=== PATIENT | female | born 1930 | race Caucasian/White ===

== ENCOUNTER 2017-01-27 13:33 | Inpatient (IN) | payer OTHER, BC ==
--- NOTE | 2017-01-27 13:39 | PDOC ---
History of Present Illness - General Chief Complaint: Pain, Acute Stated Complaint: RUQ RLQ PAIN Time Seen by Provider: 01/27/17 13:39 History Source: Patient, Old Records Exam Limitations: No Limitations - History of Present Illness Initial Comments: 01/27/17 13:59 87-year-old female with past medical history significant for hypertension, breast cancer status post right mastectomy, GERD, hiatal hernia, CHF presents to the emergency Department with complaints of 2 day history of diffuse abdominal pain and diarrhea 3 days ago. The patient says that she has not vomited but has had some dry heaving. The pain is poorly described but is worse with movement and she is had no appetite over the past 2 days. She reports increased "gassiness." Past History - Past Medical History Allergies/Adverse Reactions: Allergies Allergy/AdvReac Type Severity Reaction Status Date / Time codeine Allergy Rash Verified 01/27/17 14:44 Home Medications: Ambulatory Orders Alendronate Na [Fosamax (Weekly)] 70 mg PO Q7D 05/18/13 Atenolol [Tenormin] 100 mg PO DAILY 05/18/13 Furosemide [Lasix] 40 mg PO DAILY 05/18/13 Pantoprazole Sodium 40 mg PO HS 05/18/13 Topiramate 25 mg PO BID 05/18/13 Prednisone [Deltasone -] 20 mg PO DAILY #15 tablet 08/11/16 Piperonyl Butoxide/Pyrethrins [Ra Lice Pyrinyl Shampoo] 237 ml TP AM #1 shampoo 08/13/16 Valacyclovir HCl [Valtrex] 500 mg PO DAILY 01/27/17 HTN: Yes - Psycho/Social/Smoking Cessation Hx Anxiety: No Suicidal Ideation: No Smoking Status: Yes Smoking History: Never smoked Years of Tobacco Use: 15 Number of Cigarettes Smoked Daily: 60 Hx Alcohol Use: No Drug/Substance Use Hx: No Review of Systems - Review of Systems Able to Perform ROS?: Yes Is the patient limited Upper Sorbian proficient: No Constitutional: Yes: Loss of Appetite HEENTM: No: Symptoms Reported Respiratory: No: Symptoms reported Cardiac (ROS): No: Symptoms Reported ABD/GI: Yes: See HPI : No: Symptoms Reported Musculoskeletal: No: Symptoms Reported Integumentary: No: Symptoms Reported *Physical Exam - Physical Exam Comments: 01/27/17 14:00 GENERAL: Well developed, well nourished. Awake and alert. No acute distress. HEENT: Normocephalic, atraumatic. PERRLA, EOMI. No conjunctival pallor. Sclera are non- icteric. Moist mucous membranes. Oropharynx is clear. NECK: Supple. Full ROM. No JVD. No lymphadenopathy. CARDIOVASCULAR: Regular rate and rhythm. No murmurs, rubs, or gallops. Distal pulses are 2+ and symmetric. PULMONARY: No evidence of respiratory distress. Lungs clear to auscultation bilaterally. No wheezing, rales or rhonchi. ABDOMINAL: Soft. There is mild diffuse tenderness that is worse in the suprapubic and RLQ. No rebound or guarding. No organomegaly. Normoactive bowel sounds. MUSCULOSKELETAL Normal range of motion at all joints. No bony deformities or tenderness. No CVA tenderness. She is s/p right mastectomy. EXTREMITIES: No cyanosis. No clubbing. There is trace to +1 bipedal edema. No calf tenderness. SKIN: Warm and dry. Normal capillary refill. No rashes. No jaundice. NEUROLOGICAL: Alert, awake, appropriate. Cranial nerves 2-12 intact. Grossly non-focal exam. PSYCHIATRIC: Cooperative. Good eye contact. Appropriate mood and affect. ED Treatment Course - LABORATORY CBC & Chemistry Diagram: 01/27/17 14:30 01/27/17 14:30 Medical Decision Making - Medical Decision Making 01/27/17 14:02 87 y/o female with h/o HTN, CHF, hiatal hernia, GERD with 3 day h/o abdominal pain and nasuea with diarrhea x 1 episode on Friday. DDx includes but is not limited to: diverticulitis, diverticulosis, UTI, appendicitis, gall bladder disease, atypical presentation of ACS. Plan: 1. Labs 2. EKG 3. CXR 4. CT scan of abdomen/pelvis 5. Urine analysis 6. Anti-emetics 7. IVF for hydration 8. Observe and re-evaluate 01/27/17 15:16 Addendum: CT scan reveals a large hiatal hernia as well as a large distended GB with jerardo-cholecystic fluid. Her WBC is 22k. She has been leahy-cultured and Zosyn 3.375g IV has been ordered. Morphine has been ordered for pain. General surgery has been consulted and she has been sent for abdominal ultrasound. I have discussed the case with Dr. Melgar, her PCP. The plan is to admit to the hospitalist service. *DC/Admit/Observation/Transfer Diagnosis at time of Disposition: Acute cholecystitis, Abdominal pain - Discharge Dispostion Condition at time of disposition: Stable Admit: Yes
[2017-01-27] MEDS ORDERED: SODIUM CHLORIDE 1,000 ML IV STA (13:40)
[2017-01-27] MEDS ORDERED: ONDANSETRON 4 MG/2 ML VIAL IVPUSH ONE (13:40)
[2017-01-27] MEDS ORDERED: ONDANSETRON 4 MG/2 ML VIAL ONE (13:42)
[2017-01-27 13:56] VITALS: BMI 33.4
[2017-01-27 15:02] LABS: MCH 32.8 pg (25.7-33.7); MCHC 34.3 g/dl (32.0-36.0); MEAN CELL VOLUME 95.7 fl (80-96); MEAN PLT VOLUME 9.5 fl (7.5-11.1); PLATELET COUNT 192 K/MM3 (134-434); RDW 13.7 % (11.6-15.6)
[2017-01-27] MEDS ORDERED: PIPERACILLIN/TAZOB 3.375 GM/50 ML PRE-DOCKED IV ONE (15:05)
[2017-01-27] MEDS ORDERED: morphine CARPU-JECT 4 MG/1 ML DISP.SYRIN IVPUSH ONE (15:07)
[2017-01-27 15:21] LABS: CPK(DFH) 61 IU/L (26-140)
[2017-01-27 15:22] LABS: ALBUMIN 3.5 g/dl (3.5-5.0); BILIRUBIN,TOTAL 1.4 mg/dl (0.2-1.0); CALCIUM 9.4 mg/dl (8.4-10.2); COCKROFT - GAULT 69.36; CREATININE 0.9 mg/dl (0.6-1.3); MAGNESIUM 1.6 mg/dL (1.8-2.4); PHOSPHOROUS 2.2 mg/dl (2.5-4.6); TOT PROT 7.1 g/dl (6.4-8.3)
[2017-01-27] MEDS ORDERED: PIPERACILLIN/TAZOBACTAM 3.375 GM VIAL IVPB ONE (15:29)
[2017-01-27] MEDS ORDERED: morphine CARPU-JECT 10 MG/1 ML DISP.SYRIN ONE (15:29)
[2017-01-27 15:45] LABS: TROPONIN I (DFP) < 0.03 ng/ml (0.03-0.50)
[2017-01-27 19:34] LABS: URINE APPEARANCE Clear; URINE BILIRUBIN 1+ (NEGATIVE); URINE BLOOD Negative (NEGATIVE); URINE GLUCOSE (UA) Negative (NEGATIVE); URINE KETONE Trace (NEGATIVE); URINE LEUK ESTERASE Negative (NEGATIVE); URINE NITRITE Negative (NEGATIVE); URINE UROBILINOGEN 1.0 E.U/dl (0.2-1.0)
[2017-01-27 19:39] LABS: URINE COLOR YELLOW; URINE PROTEIN 1+ (NEGATIVE)
--- NOTE | 2017-01-27 19:53 | HP ---
<Henry Eugene - Last Filed: 01/28/17 01:31> CHIEF COMPLAINT: Abdominal Pain PCP: Dr. Duke Melgar HISTORY OF PRESENT ILLNESS: The patient is an 87-year-old female with a significant past medical history of GERD and hiatal hernia, who presented to the Emergency Department for further evaluation of diffuse abdominal pain for 2 days and diarrhea 3 days ago. The patient says that she has not vomited but has had some dry heaving. She reported that her pain is exacerbated by movement and is associated with decreased appetite and increased "gassiness". The patient stated that she had one episode of diarrhea on Friday and has not had a bowel movement since. She endorsed associated dryness. She denied fever and chills. ER course was notable for: (1) CT scan with possible cholecystitis (2) US with dilated gallbladder with stones and sludge (3) WBC of 22.0, Lactic acid 1.893 Recent Travel: Non-contributory PAST MEDICAL HISTORY: hypertension, breast cancer status post right mastectomy , GERD, hiatal hernia, CHF, migraines PAST SURGICAL HISTORY: Right mastectomy, bilateral cataract, bilateral knee replacement. Social History: Smoking: Ceased in 1968 Alcohol: Ceased in 1968 Drugs: Denied Family History: Mom: in 70s from a stroke. History of heart problems (no mi ). Father; at 77 history of breast cancer. Sister: in her 80s. History of CHF, breast cancer, diabetes, varicose venous. Allergies codeine Allergy (Verified 01/27/17 14:44) Rash HOME MEDICATIONS: Home Medications 3 Medication Instructions Recorded Alendronate Na [Fosamax (Weekly)] 70 mg PO Q7D 05/18/13 Atenolol [Tenormin] 100 mg PO DAILY 05/18/13 Furosemide [Lasix] 40 mg PO DAILY 05/18/13 Pantoprazole Sodium 40 mg PO HS 05/18/13 Topiramate 25 mg PO BID 05/18/13 Prednisone [Deltasone -] 20 mg PO DAILY #15 tablet 08/11/16 Piperonyl Butoxide/Pyrethrins [Ra 237 ml TP AM #1 shampoo 08/13/16 Lice Pyrinyl Shampoo] Valacyclovir HCl [Valtrex] 500 mg PO DAILY 01/27/17 REVIEW OF SYSTEMS CONSTITUTIONAL: Present: Decreased appetite. Absent: fever, chills, diaphoresis, generalized weakness, malaise, weight change HEENT: Absent: rhinorrhea, nasal congestion, throat pain, throat swelling, difficulty swallowing, mouth swelling, ear pain, eye pain, visual changes CARDIOVASCULAR: Absent: chest pain, syncope, palpitations, irregular heart rate, lightheadedness , peripheral edema RESPIRATORY: Absent: cough, shortness of breath, dyspnea with exertion, orthopnea, wheezing, stridor, hemoptysis GASTROINTESTINAL: Present: Abdominal pain, diarrhea, dry heaves, increased flatulence. Absent: Abdominal distension, vomiting, melena, hematochezia GENITOURINARY: Absent: dysuria, frequency, urgency, hesitancy, hematuria, flank pain, genital pain MUSCULOSKELETAL: Absent: myalgia, arthralgia, joint swelling, back pain, neck pain SKIN: Absent: rash, itching, pallor HEMATOLOGIC/IMMUNOLOGIC: Absent: easy bleeding, easy bruising, lymphadenopathy, frequent infections ENDOCRINE: Absent: unexplained weight gain, unexplained weight loss, heat intolerance, cold intolerance NEUROLOGIC: Absent: headache, focal weakness or paresthesias, dizziness, seizure, mental status changes, bladder or bowel incontinence PSYCHIATRIC: Absent: anxiety, depression, suicidal or homicidal ideation, hallucinations. PHYSICAL EXAMINATION Vital Signs - 24 hr 3 01/27/17 01/27/17 18:35 19:14 Temperature 98.9 F 97.8 F Pulse Rate 77 Pulse Rate [ 73 Right] Respiratory 16 18 Rate Blood Pressure 139/57 Blood Pressure 130/56 [Left Arm] O2 Sat by Pulse 93 L Oximetry (%) Physical Exam: GENERAL: Awake, alert, and fully oriented, in no acute distress. HEAD: Normal with no signs of trauma. EYES:(+) Right pupil with post surgical changes fixed and dilated irregularly shaped. Left reactive to light. Extraocular movements intact, sclera anicteric, conjunctiva clear. No lid lag. EARS, NOSE, THROAT: (+) Ears normal, nares patent, oropharynx clear without exudates. Dry mucous membranes. NECK: Normal range of motion, supple without lymphadenopathy, JVD, or masses. LUNGS: Breath sounds equal, clear to auscultation bilaterally. No wheezes, and no crackles. No accessory muscle use. HEART: Regular rate and rhythm, normal S1 and S2 without murmur, rub or gallop. ABDOMEN: (+) Soft, Generalized Abdominal tenderness on palpation (lower>upper), not distended, normoactive bowel sounds, no guarding, no rebound, no masses. No hepatomegaly or splenomegaly. MUSCULOSKELETAL: Normal range of motion at all joints. No bony deformities or tenderness. No CVA tenderness. UPPER EXTREMITIES: 2+ pulses, warm, well-perfused. No cyanosis. No clubbing. No peripheral edema. LOWER EXTREMITIES: (+) 2+ pulses, warm, well-perfused. No calf tenderness. Trace edema bilateral . NEUROLOGICAL: Cranial nerves II-XII intact. Normal speech. PSYCHIATRIC: Cooperative. Good eye contact. Appropriate mood and affect. SKIN: Warm, dry, normal turgor, no rashes or lesions noted, normal capillary refill. Laboratory Results - last 24 hr 3 01/27/17 01/27/17 01/27/17 14:30 14:30 14:30 WBC 22.0 H RBC 4.78 Hgb 15.7 H Hct 45.7 H MCV 95.7 MCHC 34.3 RDW 13.7 Plt Count 192 MPV 9.5 Neutrophils % 82.0 Lymphocytes % 5.0 L Monocytes % 5.0 Band Neutrophils 8.0 Sodium 134 L Potassium 3.7 Chloride 102 Carbon Dioxide 23 Anion Gap 9 BUN 17 Creatinine 0.9 Creat Clearance w eGFR 59.23 Random Glucose 133 H Lactic Acid Calcium 9.4 Phosphorus 2.2 L Magnesium 1.6 L Total Bilirubin 1.4 H AST 30 ALT 15 Alkaline Phosphatase 63 Creatine Kinase 61 Troponin I < 0.03 L Total Protein 7.1 Albumin 3.5 Lipase 17 L Urine Color Urine Appearance Urine pH Ur Specific [place] Urine Protein Urine Glucose (UA) Urine Ketones Urine Blood Urine Nitrite Urine Bilirubin Urine Urobilinogen Ur Leukocyte Esterase Urine RBC Urine WBC Urine Bacteria 3 01/27/17 01/27/17 15:11 19:17 WBC RBC Hgb Hct MCV MCHC RDW Plt Count MPV Neutrophils % Lymphocytes % Monocytes % Band Neutrophils Sodium Potassium Chloride Carbon Dioxide Anion Gap BUN Creatinine Creat Clearance w eGFR Random Glucose Lactic Acid 1.893 Calcium Phosphorus Magnesium Total Bilirubin AST ALT Alkaline Phosphatase Creatine Kinase Troponin I Total Protein Albumin Lipase Urine Color Yellow Urine Appearance Clear Urine pH 5.0 Ur Specific [place] 1.020 Urine Protein 1+ H Urine Glucose (UA) Negative Urine Ketones Trace Urine Blood Negative Urine Nitrite Negative Urine Bilirubin 1+ H Urine Urobilinogen 1.0 e.u/dl Ur Leukocyte Esterase Negative Urine RBC 0-2 Urine WBC 0-1 Urine Bacteria Few Imaging: EXAM#: TYPE/EXAM: RESULT: [id number] CT/ABDOMEN PELVIS CT W/O CONTR Clinical history: Bilateral lower abdominal pain and nausea. Comparison: None. Contiguous transaxial images were obtained from the diaphragmatic domes and pubic symphysis without the administration of oral and IV contrast. The exam is technically limited. Lung bases: Negative. Bone: Osteopenia, degenerative changes and scoliosis. Liver: Negative. Gallbladder: Markedly distended gallbladder without calcified stones seen. Moderate pericholecystic inflammatory changes. Correlate with ultrasound to rule out acute cholecystitis. Biliary tree: Negative. Spleen: Negative. Pancreas: Negative. Adrenals: Large left adrenal myelolipoma measuring at least 5.7 x 4.7 cm. Kidneys: Bilateral small lower pole nonobstructing calculi. Pelvis: Not definitive but possible right adnexal cyst which is difficult to see due to starvation artifact due to body habitus. Consider pelvic sonography. Nondistended bladder. Bowel: Colonic diverticulosis without CT evidence of diverticulitis Other: There is a very large hiatal hernia representing almost the entire stomach with a long air- fluid level. Small umbilical hernia with fat and a small amount of the nondistended small bowel loop. Impression: Technically limited exam. Abnormal gallbladder; suggest ultrasound to rule out acute cholecystitis. Large left adrenal myelolipoma. Small lateral lower pole nonobstructing calculi. Large hiatal hernia including almost the entire stomach with long air-fluid level. Other findings as above. Clinical correlation advised. Reported By: Denny Simmons MD 01/27/17 1422 EXAM#: TYPE/EXAM: RESULT: [id number] RAD/CHEST X-RAY PORTABLE* Chest: HISTORY: Abdominal pain. Frontal view of the chest is provided. There is an extremely large hiatal hernia suspected which partially obscures the lung bases. There is moderate cardiomegaly. There is apical pleural thickening right greater than left. There is question of slight blunting of the right costophrenic angle which may reflect small pleural effusion. IMPRESSION: Extremely large hiatal hernia. See above. Reported By: Surjit Weiss MD 01/27/17 1427 EXAM#: TYPE/EXAM: RESULT: [id number] US/ABDOMEN US -LIMITED Abdominal pain. Right upper abdomen ultrasound. Compared to prior CT scan of the abdomen pelvis dated 01/27/2017 There is limited visualization of the liver measuring 14.9 cm in sagittal length with a dense texture a 3.8 x 2.4 cm focal hyperechoic density seen in the right hepatic lobe that may represent a a cavernous hemangioma among other possibilities. Gallbladder is adequately distended with small intraluminal stones and likely is sludge. Mild thickening of its wall measuring up to 5 mm with questionable trace of pericholecystic free fluid no intra or extrahepatic bile duct dilatation is seen. The right kidney measures 11.1 cm sagittal length and appears unremarkable. The pancreas was not visualized. Normal flow in the main portal vein. Inferior vena cava is patent. IMPRESSION: Limited examination, as described above Limited visualization of the liver with suggestion of a 3.8 x 2.4 cm hyperechoic lesion in the right hepatic lobe. Differential diagnosis includes a cavernous hemangioma, other possibilities. Over distended gallbladder measuring 10.4 cm in sagittal length with small intraluminal stones and likely is sludge. Mild thickening of its wall with questionable trace of pericholecystic free fluid. Correlation with a HIDA scan is needed to rule out acute cholecystitis. Reported By: Shobha Og MD 01/27/17 1620 Documentation prepared by Henry Eugene, acting as medical records library professor for Ms. Agatha Driscoll NP. <Agatha Driscoll - Last Filed: 01/28/17 06:23> ASSESSMENT/PLAN: This is an 87 year old female with a past medical history of HTN, BrCA, GERD, hiatal hernia, CHF, migraines who presented with a 2 day history of diffuse abdominal pain, nausea, dry heaves and diarrhea on Friday. She is being admitted for cholecystitis. Cholecystitis with stones - Cont zosyn, ID consult - Surgical consult HTN/CHF - cont home atenolol, lasix migraines - cont home topamax GERD/Hiatal hernia - cont home protonix DVT PPX - heparin 5000u TID, hold if going to OR FEN - NS @ 100cc/hr - hypophosphatemia and hypomagnesia, repleted, repeat in am. - NPO for now Dispo: pt currently requires inpatient management of her emergent condition. Visit type - Emergency Visit Emergency Visit: Yes ED Registration Date: 01/27/17 Care time: The patient presented to the Emergency Department on the above date and was hospitalized for further evaluation of their emergent condition. - New Patient This patient is new to me today: Yes Date on this admission: 01/27/17 - Critical Care Critical Care patient: No
[2017-01-27] MEDS ORDERED: MAGNESIUM SULF 50% (8.12 MEQ/2 ML-1 GM VIAL) IVPB ONE (19:57)
[2017-01-27 20:14] LABS: URINE BACTERIA FEW /hpf (NEGATIVE); URINE RBC 0-2 /hpf (0-3); URINE WBC 0-1 (3-5)
[2017-01-27] MEDS ORDERED: SODIUM PHOSPHATE - 15 MM in SODIUM CHLORIDE 250 ML IVPB ONE (21:00)
[2017-01-27] MEDS ORDERED: morphine CARPU-JECT 2 MG/1 ML DISP.SYRIN IVPUSH PRN (21:32)
[2017-01-27] MEDS ORDERED: ONDANSETRON 4 MG/2 ML VIAL IVPB PRN (21:32)
[2017-01-27] MEDS ORDERED: SODIUM CHLORIDE 1,000 ML IV SCH (21:45)
[2017-01-27] MEDS: HEPARIN NA (PORCINE) 5,000 UNITS/ML 1ML VIAL SQ SCH (21:55)
[2017-01-27] MEDS ORDERED: MAGNESIUM SULF 50% (8.12 MEQ/2 ML-1 GM VIAL) ONE (21:58)
[2017-01-27] MEDS: PANTOPRAZOLE 40 MG TABLET (FP) PO SCH (22:05)
[2017-01-27] MEDS: TOPIRAMATE 25 MG TABLET (FP) PO SCH (22:05)
[2017-01-28] MEDS: HEPARIN NA (PORCINE) 5,000 UNITS/ML 1ML VIAL SQ SCH ×3 (06:11→21:29)
--- NOTE | 2017-01-28 08:16 | PN ---
[id number] denies any chest pain or shortness of breath OBJECTIVE: patient is a 87-year-old female with a significant past medical history of GERD, breast CA, CHF, migraines, and hiatal hernia. patient was admitted from the emergency department for acute cholecystitis Vital Signs Period Temp Pulse Resp BP Sys/Baez Pulse Ox Last 24 Hr 97.8 F-98.9 F 73-77 16-18 130-139/56-65 93-95 GENERAL: The patient is awake, alert, and fully oriented, in no acute distress. HEAD: Normal with no signs of trauma. EYES: PERRL, extraocular movements intact, sclera anicteric, conjunctiva clear. No ptosis. ENT: Ears normal, nares patent, oropharynx clear without exudates, dry mucous membranes. NECK: Trachea midline, full range of motion, supple. LUNGS: Breath sounds equal, clear to auscultation bilaterally, no wheezes, no crackles, no accessory muscle use. HEART: Regular rate and rhythm, S1, S2 without murmur, rub or gallop. ABDOMEN: Soft, + green's sign, nondistended, normoactive bowel sounds, no guarding, no rebound, no hepatosplenomegaly, no masses. EXTREMITIES: 2+ pulses, warm, well-perfused, no edema. NEUROLOGICAL: Cranial nerves II through XII grossly intact. Normal speech, gait not observed. PSYCH: Normal mood, normal affect. SKIN: Warm, dry, normal turgor, no rashes or lesions noted Laboratory Results - last 24 hr 01/27/17 19:17 Urine Color Yellow Urine Appearance Clear Urine pH 5.0 Ur Specific [place] 1.020 Urine Protein 1+ H Urine Glucose (UA) Negative Urine Ketones Trace Urine Blood Negative Urine Nitrite Negative Urine Bilirubin 1+ H Urine Urobilinogen 1.0 e.u/dl Ur Leukocyte Esterase Negative Urine RBC 0-2 Urine WBC 0-1 Urine Bacteria Few CBC WBC 18.4 K/mm3 (4.0-10.8) H 01/28/17 08:00 RBC 4.37 M/mm3 (3.60-5.2) 01/28/17 08:00 Hgb 14.3 GM/dl (10.7-15.3) 01/28/17 08:00 Hct 42.3 % (32.4-45.2) 01/28/17 08:00 MCV 96.7 fl (80-96) H 01/28/17 08:00 MCHC 33.8 g/dl (32.0-36.0) 01/28/17 08:00 RDW 13.6 % (11.6-15.6) 01/28/17 08:00 Plt Count 170 K/MM3 (134-434) 01/28/17 08:00 MPV 10.3 fl (7.5-11.1) 01/28/17 08:00 Neutrophils % 89.2 % (42.8-82.8) H 01/28/17 08:00 Lymphocytes % 3.3 % (8-40) L D 01/28/17 08:00 Monocytes % 7.1 % (3.8-10.2) 01/28/17 08:00 Eosinophils % 0.0 % (0-4.5) 01/28/17 08:00 Basophils % 0.4 % (0-2.0) 01/28/17 08:00 Band Neutrophils 8.0 % (0-10) 01/27/17 14:30 CMP Sodium 133 mmol/L (136-145) L 01/28/17 08:00 Potassium 3.6 mmol/L (3.5-5.1) 01/28/17 08:00 Chloride 107 mmol/L (98-107) 01/28/17 08:00 Carbon Dioxide 20 mmol/L (22-28) L 01/28/17 08:00 Anion Gap 6 (8-16) L 01/28/17 08:00 BUN 17 mg/dl (7-18) 01/28/17 08:00 Creatinine 0.6 mg/dl (0.6-1.3) D 01/28/17 08:00 Creat Clearance w eGFR 59.23 (>60) 01/27/17 14:30 Random Glucose 132 mg/dl (74-106) H 01/28/17 08:00 Lactic Acid 1.893 mmol/L (0.4-2.0) 01/27/17 15:11 Calcium 8.2 mg/dl (8.4-10.2) L 01/28/17 08:00 Phosphorus 2.5 mg/dl (2.5-4.6) 01/28/17 08:00 Magnesium 1.9 mg/dL (1.8-2.4) 01/28/17 08:00 Total Bilirubin 1.2 mg/dl (0.2-1.0) H 01/28/17 Unknown Direct Bilirubin 0.3 mg/dl (0.0-0.2) H 01/28/17 Unknown AST 29 U/L (10-42) 01/28/17 Unknown ALT 28 U/L (10-40) D 01/28/17 Unknown Alkaline Phosphatase 60 U/L (32-92) 01/28/17 Unknown Creatine Kinase 61 IU/L (26-140) 01/27/17 14:30 Troponin I < 0.03 ng/ml (0.03-0.50) L 01/27/17 14:30 Total Protein 5.7 g/dl (6.4-8.3) L 01/28/17 Unknown Albumin 2.7 g/dl (3.5-5.0) L D 01/28/17 Unknown Lipase 17 U/L (22-51) L 01/27/17 14:30 Active Medications Generic Name Dose Route Start Last Admin Trade Name Freq PRN Reason Stop Dose Admin Atenolol 100 mg 01/28/17 10:00 Tenormin - PO DAILY [place] Heparin Sodium (Porcine) 5,000 unit 01/27/17 22:00 01/28/17 06:11 Heparin - SQ 5,000 unit TID [place] Administration Sodium Chloride 1,000 mls @ 100 mls/hr 01/27/17 21:45 01/27/17 22:06 Normal Saline - IV 100 mls/hr ASDIR [place] Administration Morphine Sulfate 2 mg 01/27/17 21:32 Morphine Injection - IVPUSH Q4H PRN PAIN Ondansetron HCl 4 mg 01/27/17 21:32 Zofran Injection IVPB Q6H PRN NAUSEA Pantoprazole Sodium 40 mg 01/27/17 22:00 01/27/17 22:05 Protonix - PO 40 mg HS [place] Administration Topiramate 25 mg 01/27/17 22:00 01/27/17 22:05 Topamax - PO 25 mg BID [place] Administration Valacyclovir HCl 500 mg 01/28/17 10:00 Valtrex - PO DAILY [place] Imaging: CT/ABDOMEN PELVIS CT W/O CONTR Gallbladder: Markedly distended gallbladder without calcified stones seen. Moderate pericholecystic inflammatory changes. acute cholecystitis. Large hiatal hernia CHEST X-RAY PORTABLE* There is an extremely large hiatal hernia suspected which partially obscures the lung bases. There is moderate cardiomegaly. There is apical pleural thickening right greater than left. There is question of slight blunting of the right costophrenic angle which may reflect small pleural effusion. US/ABDOMEN US -LIMITED: cavernous hemangioma. Over distended gallbladder measuring 10.4 cm in sagittal length with small intraluminal stones and likely is sludge. Mild thickening of its wall with questionable trace of pericholecystic free fluid. 3> ASSESSMENT/PLAN: 1) GI acute Cholecystitis with stones - continue Zosyn, appreciate ID input for antibiotic clearance - leukocytosis patient afebrile, pending blood cultures, monitor fever curve - case discussed with general surgeon Dr. Enrique, pending hida scan - remain NPO with IVF GERD -continue protonix 2) card hypertension - continue atenolol - strict b/p monitoring CHF - hold lasix, pt appears hypovolemic on exam - call placed to PCP (Talia) to obtain prior records 3) neuro migraine - continue topamax F/E/N - NPO --> IVF - replete lytes prn ppx -heparin - protonix - oob - scd/cris dispo: pt currently requires inpatient management of her emergent condition. - Visit type - Emergency Visit Emergency Visit: Yes ED Registration Date: 01/27/17 Care time: The patient presented to the Emergency Department on the above date and was hospitalized for further evaluation of their emergent condition. - New Patient This patient is new to me today: Yes Date on this admission: 01/28/17 - Critical Care Critical Care patient: No - Discharge Referral Referred to [facility] Med P.C.: No
[2017-01-28 08:49] LABS: ANION GAP 6 (8-16); CALCIUM 8.2 mg/dl (8.4-10.2); CO2 20 mmol/L (22-28); CREATININE 0.6 mg/dl (0.6-1.3); GLUCOSE,RANDOM 132 mg/dl (74-106); MAGNESIUM 1.9 mg/dL (1.8-2.4); PHOSPHOROUS 2.5 mg/dl (2.5-4.6)
[2017-01-28 08:56] LABS: BASOPHIL 0.4 % (0-2.0); MCH 32.6 pg (25.7-33.7); MCHC 33.8 g/dl (32.0-36.0); MEAN CELL VOLUME 96.7 fl (80-96); MEAN PLT VOLUME 10.3 fl (7.5-11.1); NEUTROPHILS 89.2 % (42.8-82.8); PLATELET COUNT 170 K/MM3 (134-434); RDW 13.6 % (11.6-15.6); WHITE BLOOD COUNT 18.4 K/mm3 (4.0-10.8)
[2017-01-28 09:47] LABS: ALBUMIN 2.7 g/dl (3.5-5.0); BILIRUBIN,DIRECT 0.3 mg/dl (0.0-0.2); BILIRUBIN,TOTAL 1.2 mg/dl (0.2-1.0); TOT PROT 5.7 g/dl (6.4-8.3)
[2017-01-28] MEDS ORDERED: valACYclovir HCL 1000 MG TABLET PO SCH (10:00)
[2017-01-28] MEDS ORDERED: PIPERACILLIN/TAZOB 3.375 GM 50 ML IVPB ONE (10:00)
--- NOTE | 2017-01-28 10:00 | PN ---
Progress Note (short form) - Note Progress Note: ID Consult dictated Acute cholecystitis Possible sepsis secondary to cholecystitis Leukocytosis Await cultures, HIDA scan Empiric zosyn
[2017-01-28] MEDS: valACYclovir HCL 500 MG TABLET (FP) PO SCH (12:00)
[2017-01-28] MEDS: TOPIRAMATE 25 MG TABLET (FP) PO SCH ×2 (12:00→21:29)
[2017-01-28] MEDS: ATENOLOL 50 MG TABLET (FP) PO SCH (12:00)
[2017-01-28] MEDS ORDERED: PT OWN MED DRAWER 7, Y5N ONE (12:02)
--- NOTE | 2017-01-28 13:18 | EKG ---
Test Reason : Blood Pressure : / mmHG Vent. Rate : 077 BPM Atrial Rate : 077 BPM P-R Int : 160 ms QRS Dur : 098 ms QT Int : 376 ms P-R-T Axes : 088 085 055 degrees QTc Int : 425 ms SINUS RHYTHM WITH OCCASIONAL PREMATURE VENTRICULAR COMPLEXES OTHERWISE NORMAL ECG WHEN COMPARED WITH ECG OF 06-JUN-2010 22:44, PREMATURE VENTRICULAR COMPLEXES ARE NOW PRESENT BASELINE ARTIFACT Confirmed by MICHAEL DAUGHERTY, JOSEPH ([id number]) on 01/28/2017 1:18:22 PM Referred By: ELADIO COLLINS Confirmed By:JOSEPH RODRIGUEZ MD
[2017-01-28] MEDS ORDERED: D5-NS + 20 MEQ KCL - 1,000 ML IV SCH (14:00)
--- NOTE | 2017-01-28 16:00 | CONSULT ---
Consult Consult Specialty:: surgery Reason for Consultation:: cholecystitis - History of Present Illness History of Present Illness: pt is a 87F with severe RUQ pain. Came to ER and had leukocytosis. CT showed distended GB but no stones. U/S showed some sludge, some wall thickening and some pericholecystic fluid. It was mentioned on exam she had tenderness in lower abd. HIDA scan shows no filling of gallbladder after 1 hour and tracer was picked up and excreted thru SB after 1 hr. Her pain is improved currently but still there at a baseline. - History Source History Provided By: Patient Limitations to Obtaining History: No Limitations - Alcohol/Substance Use Hx Alcohol Use: No - Smoking History Smoking history: Never smoked Have you smoked in the past 12 months: No Aproximately how many cigarettes per day: 60 Home Medications - Allergies Allergies/Adverse Reactions: Allergies Allergy/AdvReac Type Severity Reaction Status Date / Time codeine Allergy Rash Verified 01/27/17 14:44 - Home Medications Home Medications: Ambulatory Orders Alendronate Na [Fosamax (Weekly)] 70 mg PO Q7D 05/18/13 Atenolol [Tenormin] 100 mg PO DAILY 05/18/13 Furosemide [Lasix] 40 mg PO DAILY 05/18/13 Pantoprazole Sodium 40 mg PO HS 05/18/13 Topiramate 25 mg PO BID 05/18/13 Prednisone [Deltasone -] 20 mg PO DAILY #15 tablet 08/11/16 Piperonyl Butoxide/Pyrethrins [Ra Lice Pyrinyl Shampoo] 237 ml TP AM #1 shampoo 08/13/16 Valacyclovir HCl [Valtrex] 500 mg PO DAILY 01/27/17 Family Disease History - Family Disease History Family History: Unremarkable Review of Systems - Review of Systems Constitutional: denies: Chills, Fever Eyes: denies: Blind Spots, Blurred Vision HENT: denies: Difficult Swallowing, Ear Discharge Neck: denies: Decreased ROM, Lumps Cardiovascular: denies: Chest Pain, Edema Respiratory: denies: Cough, Exercise Intolerance Gastrointestinal: reports: Abdominal Pain Genitourinary: denies: Burning, Discharge Musculoskeletal: denies: Back Pain, Joint Swelling Integumentary: denies: Blister, Bruising Neurological: denies: Change in LOC, Change in Speech Endocrine: denies: Excessive Sweating, Flushing Hematology/Lymphatic: denies: Easily Bruised, Excessive Bleeding Psychiatric: denies: Altered Sleep Pattern, Anxiety Physical Exam Vital Signs: Vital Signs Temperature 98.5 F 01/28/17 14:23 Pulse Rate 76 01/28/17 14:23 Respiratory Rate 20 01/28/17 14:23 Blood Pressure 130/64 01/28/17 14:23 O2 Sat by Pulse Oximetry (%) 96 01/28/17 14:23 Constitutional: Yes: No Distress, Calm Eyes: Yes: Conjunctiva Clear, EOM Intact HENT: Yes: Atraumatic, Normocephalic Neck: Yes: Supple, Trachea Midline Cardiovascular: Yes: Regular Rate and Rhythm Respiratory: Yes: Regular, CTA Bilaterally Gastrointestinal: Yes: Soft, Tenderness (min mild RUQ tenderness.). No: Distention ...Rectal Exam: Yes: Deferred Renal/: No: CVA Tenderness - Left, CVA Tenderness - Right Musculoskeletal: No: Joint Stiffness, Muscle Pain Extremities: No: Calf Tenderness, Erythema Integumentary: No: Erythema, Rash Neurological: Yes: Alert, Oriented Psychiatric: Yes: Alert, Oriented Labs: CBC, BMP 01/28/17 08:00 01/28/17 08:00 Imaging - Results Cat Scan: Report Reviewed Ultrasound: Report Reviewed Other: Other (erlinda d/w radiologist.) Problem List - Problems (1) Acute cholecystitis Assessment/Plan: clear liquid diet cont abx npo after mn for lap ellen tomorrow at approx 11am Code(s): K81.0 - ACUTE CHOLECYSTITIS
--- NOTE | 2017-01-28 17:33 | CONS ---
DATE OF CONSULTATION: DATE OF DICTATION: 01/28/2017 The patient is an 87-year-old female evaluated for acute cholecystitis. The patient was admitted to the hospital on January 27, 2017, with 2-day history of diffuse abdominal pain associated with non-bloody diarrhea. The patient states she had worsening diffuse abdominal pain associated with nausea but no vomiting. She had described the pain as "gas like," which was intermittent, associated with nonbloody diarrhea. She presented to the emergency room, where she was noted to have a white blood cell count of 22,000. A CAT scan of the abdomen and pelvis showed a distended gallbladder with gallbladder stones. There was thickening of the wall and pericholecystic fluid. She was empirically treated with Zosyn after cultures were obtained. A HIDA scan was ordered. At the present time she complains of epigastric and right upper quadrant abdominal pain. She is in no acute distress. She has been afebrile. Past medical history positive for hypertension, gastroesophageal reflux, hiatal hernia congestive heart failure, breast cancer. PAST SURGICAL HISTORY: Status post right mastectomy, bilateral cataract surgery, bilateral total hip replacement. Allergies to CODEINE. MEDICATIONS: Fosamax, Tenormin, Lasix, Protonix, prednisone, Valtrex. SOCIAL HISTORY: Patient lives at home. She is a nonsmoker, nondrinker. SYSTEMS REVIEW: Neurologic: No loss of consciousness, seizure activity, focal weakness. Cardiac: Negative chest pain or palpitations. Respiratory: Negative cough or sputum production. Gastrointestinal: As per HPI. Genitourinary: Negative for urinary tract infection. LABORATORY DATA: White count on admission 22,000, presently 18.4, hematocrit 42.3, platelet count 170. Total bilirubin 1.2, alkaline phosphatase 66, AST 29. Blood cultures pending. Urinalysis: 0 to 1 white cell. PHYSICAL EXAMINATION: General: She is awake and alert, she is in no acute distress. Vital Signs: Temperature 98.9. Blood pressure 132/65. Pulse 76, regular. Respirations 18 per minute. Eyes: Sclerae anicteric. Heart Sounds: S1, S2. Lungs: Clear. Abdomen: Positive bowel sounds. There is right upper quadrant and epigastric tenderness to palpation. No mass, rebound or rigidity. Extremities: Positive for edema. IMPRESSION: 1. Acute cholecystitis. 2. Leukocytosis, possible sepsis secondary to acute cholecystitis. Await culture results and a HIDA scan. Empiric antibiotic coverage with Zosyn 3.375 g IV piggyback every 8 hours. Surgical evaluation and followup. Analgesics as needed. Will follow. Thank you for the kind referral. OSIRIS ROLLE M.D. [facility]/[id number]
[2017-01-28] MEDS: PIPERACILLIN/TAZOB 3.375 GM 50 ML IVPB SCH (18:39)
--- NOTE | 2017-01-28 20:35 | HP ---
CHIEF COMPLAINT: PCP: HISTORY OF PRESENT ILLNESS: ER course was notable for: (1) (2) (3) Recent Travel: PAST MEDICAL HISTORY: PAST SURGICAL HISTORY: Social History: Smoking: Alcohol: Drugs: Family History: Allergies codeine Allergy (Verified 01/27/17 14:44) Rash HOME MEDICATIONS: Home Medications Medication Instructions Recorded Alendronate Na [Fosamax (Weekly)] 70 mg PO Q7D 05/18/13 Atenolol [Tenormin] 100 mg PO DAILY 05/18/13 Furosemide [Lasix] 40 mg PO DAILY 05/18/13 Pantoprazole Sodium 40 mg PO HS 05/18/13 Topiramate 25 mg PO BID 05/18/13 Prednisone [Deltasone -] 20 mg PO DAILY #15 tablet 08/11/16 Piperonyl Butoxide/Pyrethrins [Ra 237 ml TP AM #1 shampoo 08/13/16 Lice Pyrinyl Shampoo] Valacyclovir HCl [Valtrex] 500 mg PO DAILY 01/27/17 REVIEW OF SYSTEMS CONSTITUTIONAL: Absent: fever, chills, diaphoresis, generalized weakness, malaise, loss of appetite, weight change HEENT: Absent: rhinorrhea, nasal congestion, throat pain, throat swelling, difficulty swallowing, mouth swelling, ear pain, eye pain, visual changes CARDIOVASCULAR: Absent: chest pain, syncope, palpitations, irregular heart rate, lightheadedness , peripheral edema RESPIRATORY: Absent: cough, shortness of breath, dyspnea with exertion, orthopnea, wheezing, stridor, hemoptysis GASTROINTESTINAL: Absent: abdominal pain, abdominal distension, nausea, vomiting, diarrhea, constipation, melena, hematochezia GENITOURINARY: Absent: dysuria, frequency, urgency, hesitancy, hematuria, flank pain, genital pain MUSCULOSKELETAL: Absent: myalgia, arthralgia, joint swelling, back pain, neck pain SKIN: Absent: rash, itching, pallor HEMATOLOGIC/IMMUNOLOGIC: Absent: easy bleeding, easy bruising, lymphadenopathy, frequent infections ENDOCRINE: Absent: unexplained weight gain, unexplained weight loss, heat intolerance, cold intolerance NEUROLOGIC: Absent: headache, focal weakness or paresthesias, dizziness, unsteady gait, seizure, mental status changes, bladder or bowel incontinence PSYCHIATRIC: Absent: anxiety, depression, suicidal or homicidal ideation, hallucinations. PHYSICAL EXAMINATION Vital Signs - 24 hr 01/27/17 01/28/17 01/28/17 20:51 03:32 06:44 Temperature 98.9 F Pulse Rate 76 Respiratory 18 18 Rate Blood Pressure 132/65 O2 Sat by Pulse 93 L 95 Oximetry (%) 01/28/17 01/28/17 01/28/17 08:34 14:23 19:50 Temperature 98.5 F Pulse Rate 76 Respiratory 18 20 20 Rate Blood Pressure 130/64 O2 Sat by Pulse 95 96 96 Oximetry (%) GENERAL: Awake, alert, and fully oriented, in no acute distress. HEAD: Normal with no signs of trauma. EYES: Pupils equal, round and reactive to light, extraocular movements intact, sclera anicteric, conjunctiva clear. No lid lag. EARS, NOSE, THROAT: Ears normal, nares patent, oropharynx clear without exudates. Moist mucous membranes. NECK: Normal range of motion, supple without lymphadenopathy, JVD, or masses. LUNGS: Breath sounds equal, clear to auscultation bilaterally. No wheezes, and no crackles. No accessory muscle use. HEART: Regular rate and rhythm, normal S1 and S2 without murmur, rub or gallop. ABDOMEN: Soft, nontender, not distended, normoactive bowel sounds, no guarding, no rebound, no masses. No hepatomegaly or splenomegaly. MUSCULOSKELETAL: Normal range of motion at all joints. No bony deformities or tenderness. No CVA tenderness. UPPER EXTREMITIES: 2+ pulses, warm, well-perfused. No cyanosis. No clubbing. No peripheral edema. LOWER EXTREMITIES: 2+ pulses, warm, well-perfused. No calf tenderness. No peripheral edema. NEUROLOGICAL: Cranial nerves II-XII intact. Normal speech. Normal gait. PSYCHIATRIC: Cooperative. Good eye contact. Appropriate mood and affect. SKIN: Warm, dry, normal turgor, no rashes or lesions noted, normal capillary refill. Laboratory Results - last 24 hr 01/28/17 01/28/17 01/28/17 08:00 08:00 Unknown WBC 18.4 H RBC 4.37 Hgb 14.3 Hct 42.3 MCV 96.7 H MCHC 33.8 RDW 13.6 Plt Count 170 MPV 10.3 Neutrophils % 89.2 H Lymphocytes % 3.3 L D Monocytes % 7.1 Eosinophils % 0.0 Basophils % 0.4 Sodium 133 L Potassium 3.6 Chloride 107 Carbon Dioxide 20 L Anion Gap 6 L BUN 17 Creatinine 0.6 D Random Glucose 132 H Calcium 8.2 L Phosphorus 2.5 Magnesium 1.9 Total Bilirubin 1.2 H Direct Bilirubin 0.3 H AST 29 ALT 28 D Alkaline Phosphatase 60 Total Protein 5.7 L Albumin 2.7 L D ASSESSMENT/PLAN:
[2017-01-28] MEDS: PANTOPRAZOLE 40 MG TABLET (FP) PO SCH (21:29)
[2017-01-29] MEDS: PIPERACILLIN/TAZOB 3.375 GM 50 ML IVPB SCH ×4 (02:15→17:35)
[2017-01-29] MEDS: HEPARIN NA (PORCINE) 5,000 UNITS/ML 1ML VIAL SQ SCH (06:44)
[2017-01-29 08:31] LABS: BASOPHIL 0.9 % (0-2.0); MCH 32.4 pg (25.7-33.7); MCHC 34.5 g/dl (32.0-36.0); MEAN PLT VOLUME 9.9 fl (7.5-11.1); NEUTROPHILS 87.3 % (42.8-82.8); PLATELET COUNT 157 K/MM3 (134-434); RDW 13.4 % (11.6-15.6); WHITE BLOOD COUNT 13.8 K/mm3 (4.0-10.8)
[2017-01-29 08:47] LABS: INR 1.49 (0.82-1.09); PROTHROMBIN TIME (PATIENT) 16.5 SEC (10.2-13.0)
[2017-01-29 08:51] LABS: ALBUMIN 2.2 g/dl (3.5-5.0); ALK PHOS 57 U/L (32-92); ANION GAP 7 (8-16); BILIRUBIN,TOTAL 1.5 mg/dl (0.2-1.0); CALCIUM 7.9 mg/dl (8.4-10.2); CO2 20 mmol/L (22-28); CREATININE 0.6 mg/dl (0.6-1.3); GLUCOSE,RANDOM 168 mg/dl (74-106); MAGNESIUM 1.7 mg/dL (1.8-2.4); PHOSPHOROUS 1.2 mg/dl (2.5-4.6); SGOT/AST 14 U/L (10-42); SGPT/ALT 18 U/L (10-40); TOT PROT 5.2 g/dl (6.4-8.3)
[2017-01-29] MEDS: valACYclovir HCL 500 MG TABLET (FP) PO SCH (09:00)
[2017-01-29] MEDS: TOPIRAMATE 25 MG TABLET (FP) PO SCH ×2 (09:00→21:18)
[2017-01-29] MEDS: ATENOLOL 50 MG TABLET (FP) PO SCH (09:00)
--- NOTE | 2017-01-29 10:11 | PN ---
Progress Note, Physician History of Present Illness: C/O RUQ abdominal pain No c/o N/V No c/o fever/ chills Afebrile WBC improving Cultures pending - Current Medication List Current Medications: Active Medications Atenolol (Tenormin -) 100 mg PO DAILY [facility] Last Admin: 01/28/17 12:00 Dose: 100 mg Piperacillin Sod/Tazobactam Sod (Zosyn 3.375gm Ivpb (Pre-Docked)) 50 mls @ 100 mls/hr IVPB Q8H-IV [place] PRN Reason: Protocol Last Admin: 01/29/17 02:15 Dose: 100 mls/hr Dextrose/Sodium Chloride (Dextrose 5%-Normal Saline+20 Meq Kcl -) 1,000 mls @ 75 mls/hr IV ASDIR [facility] Last Admin: 01/28/17 15:00 Dose: 75 mls/hr Morphine Sulfate (Morphine Injection -) 2 mg IVPUSH Q4H PRN PRN Reason: PAIN Last Admin: 01/29/17 06:46 Dose: 2 mg Ondansetron HCl (Zofran Injection) 4 mg IVPB Q6H PRN PRN Reason: NAUSEA Pantoprazole Sodium (Protonix -) 40 mg PO HS [facility] Last Admin: 01/28/17 21:29 Dose: 40 mg Topiramate (Topamax -) 25 mg PO BID [facility] Last Admin: 01/28/17 21:29 Dose: 25 mg Valacyclovir HCl (Valtrex -) 500 mg PO DAILY [facility] Last Admin: 01/28/17 12:00 Dose: 500 mg - Objective Vital Signs: Vital Signs Temperature 97.9 F 01/29/17 08:21 Pulse Rate 95 H 01/29/17 08:21 Respiratory Rate 18 01/29/17 08:21 Blood Pressure 142/90 01/29/17 08:21 O2 Sat by Pulse Oximetry (%) 94 L 01/28/17 22:42 Constitutional: Yes: No Distress, Obese Cardiovascular: Yes: Regular Rate and Rhythm, S1, S2 Respiratory: Yes: CTA Bilaterally Gastrointestinal: Yes: Normal Bowel Sounds, Soft, Tenderness, Other (+RUQ tenderness) Edema: Yes Labs: CBC, BMP 01/29/17 07:00 01/29/17 07:00 INR, PTT INR 1.49 (0.82-1.09) H 01/29/17 07:00 Assessment/Plan Acute cholecystitis Leukocytosis, possible biliaryu sepsis For OR today Continue empiric zosyn
[2017-01-29] MEDS ORDERED: BUPIVACAINE HCL/PF 2.5 MG/ML - 30 ML VIAL IJ ONE (11:22)
[2017-01-29] MEDS ORDERED: PROPOFOL 20 ML ONE (11:52)
[2017-01-29] MEDS ORDERED: SUCCINYLCHOLINE CHLORIDE 200 MG/10 ML VIAL ONE (11:52)
--- NOTE | 2017-01-29 12:18 | PN ---
Physical Exam: SUBJECTIVE: Patient seen and examined, reports ongoing abdominal pain, tolerated clear liquid diet, surgery postponed until today because of OR availability. patient was brought to OR at 1100 OBJECTIVE: patient is a 87-year-old female with a significant past medical history of GERD, breast CA, migraines, and hiatal hernia. patient was admitted from the emergency department for acute cholecystitis. Vital Signs Period Temp Pulse Resp BP Sys/Baez Pulse Ox Last 24 Hr 97.9 F-98.7 F 76-96 18-20 116-142/59-90 94-96 GENERAL: The patient is awake, alert, and fully oriented, in no acute distress. HEAD: Normal with no signs of trauma. EYES: PERRL, extraocular movements intact, sclera anicteric, conjunctiva clear. No ptosis. ENT: Ears normal, nares patent, oropharynx clear without exudates, moist mucous membranes. NECK: Trachea midline, full range of motion, supple. LUNGS: Breath sounds equal, clear to auscultation bilaterally, no wheezes, no crackles, no accessory muscle use. HEART: Regular rate and rhythm, S1, S2 without murmur, rub or gallop. ABDOMEN: Soft, +green's sign, nder, nondistended, normoactive bowel sounds, no guarding, no rebound, no hepatosplenomegaly, no masses. EXTREMITIES: 2+ pulses, warm, well-perfused, no edema. NEUROLOGICAL: Cranial nerves II through XII grossly intact. Normal speech, gait not observed. PSYCH: Normal mood, normal affect. SKIN: Warm, dry, normal turgor, no rashes or lesions noted Laboratory Results - last 24 hr 01/29/17 01/29/17 01/29/17 07:00 07:00 07:00 WBC 13.8 H RBC 4.23 Hgb 13.7 Hct 39.7 MCV 94.0 MCHC 34.5 RDW 13.4 Plt Count 157 MPV 9.9 Neutrophils % 87.3 H Lymphocytes % 6.1 L D Monocytes % 5.7 Eosinophils % 0.0 Basophils % 0.9 INR 1.49 H Sodium 139 Potassium 3.4 L Chloride 112 H Carbon Dioxide 20 L Anion Gap 7 L BUN 16 Creatinine 0.6 Creat Clearance w eGFR > 60 Random Glucose 168 H D Calcium 7.9 L Phosphorus 1.2 L D Magnesium 1.7 L Total Bilirubin 1.5 H D AST 14 D ALT 18 D Alkaline Phosphatase 57 Total Protein 5.2 L Albumin 2.2 L Blood Type Antibody Screen 01/29/17 10:53 WBC RBC Hgb Hct MCV MCHC RDW Plt Count MPV Neutrophils % Lymphocytes % Monocytes % Eosinophils % Basophils % INR Sodium Potassium Chloride Carbon Dioxide Anion Gap BUN Creatinine Creat Clearance w eGFR Random Glucose Calcium Phosphorus Magnesium Total Bilirubin AST ALT Alkaline Phosphatase Total Protein Albumin Blood Type O POSITIVE Antibody Screen Negative Active Medications Generic Name Dose Route Start Last Admin Trade Name Freq PRN Reason Stop Dose Admin Atenolol 100 mg 01/28/17 10:00 01/29/17 09:00 Tenormin - PO 100 mg DAILY [place] Administration Piperacillin Sod/Tazobactam Sod 50 mls @ 100 mls/hr 01/28/17 10:15 01/29/17 09: 05 Zosyn 3.375gm Ivpb (Pre-Docked) IVPB 100 mls/hr Q8H-IV [place] Administration Protocol Dextrose/Sodium Chloride 1,000 mls @ 75 mls/hr 01/28/17 14:00 01/28/17 15:00 Dextrose 5%-Normal Saline+20 Meq Kcl - IV 75 mls/hr ASDIR [place] Administration Morphine Sulfate 2 mg 01/27/17 21:32 01/29/17 06:46 Morphine Injection - IVPUSH 2 mg Q4H PRN Administration PAIN Ondansetron HCl 4 mg 01/27/17 21:32 Zofran Injection IVPB Q6H PRN NAUSEA Pantoprazole Sodium 40 mg 01/27/17 22:00 01/28/17 21:29 Protonix - PO 40 mg HS [place] Administration Topiramate 25 mg 01/27/17 22:00 01/29/17 09:00 Topamax - PO 25 mg BID [place] Administration Valacyclovir HCl 500 mg 01/28/17 10:00 01/29/17 09:00 Valtrex - PO 500 mg DAILY [place] Administration Microbiology 01/27/17 15:54 Blood - Peripheral Venous Blood Culture - Preliminary NO GROWTH OBTAINED AFTER 24 HOURS, INCUBATION TO CONTINUE FOR 4 DAYS. 01/27/17 15:54 Blood - Peripheral Venous Blood Culture - Preliminary NO GROWTH OBTAINED AFTER 24 HOURS, INCUBATION TO CONTINUE FOR 4 DAYS. ASSESSMENT/PLAN: Imaging: CT/ABDOMEN PELVIS CT W/O CONTR Gallbladder: Markedly distended gallbladder without calcified stones seen. Moderate pericholecystic inflammatory changes. acute cholecystitis. Large hiatal hernia CHEST X-RAY PORTABLE* There is an extremely large hiatal hernia suspected which partially obscures the lung bases. There is moderate cardiomegaly. There is apical pleural thickening right greater than left. There is question of slight blunting of the right costophrenic angle which may reflect small pleural effusion. US/ABDOMEN US -LIMITED: cavernous hemangioma. Over distended gallbladder measuring 10.4 cm in sagittal length with small intraluminal stones and likely is sludge. Mild thickening of its wall with questionable trace of pericholecystic free fluid. HIDA Scan: no filling of gallbladder after 60 minutes, suggestive of acute choleyctitis ASSESSMENT/PLAN: 1) GI acute Cholecystitis - continue Zosyn as per ID - wbc trending downward, pt afebrile - blood cultures NTD - surgery (Hon) consulted and followed GERD -continue protonix 2) card new onset afib - finding discussed with primary care physician Dr. Melgar, patient does not have a documented history of A. fib and patient is not under the care of a cargo handler - EKG reviewed A. fib rate controlled, vent rate 88-->continous cardiac monitoring ordered - Cardiac profile, tsh, t4, and bnp ordered - Echocardiogram ordered - chadvasc 2, intermediate risk for CVA, heparin gtt ordered - case discussed with Dr Acosta, (cardiology) will evaluate patient today hypertension - continue atenolol - strict b/p monitoring 3) neuro migraine - continue topamax herpes zooster - history of herpes zoster in the past, takes Valtrex daily F/E/N -low sodium diet - replete magnesium, K-Phos gtt ordered, repeat bmp at 1800 ppx -heparin - protonix - oob - scd/cris dispo: patient currently requires inpatient telemetry, transfer initiated to [facility] for further management. - Visit type - Emergency Visit Emergency Visit: Yes ED Registration Date: 01/27/17 Care time: The patient presented to the Emergency Department on the above date and was hospitalized for further evaluation of their emergent condition. - New Patient This patient is new to me today: No - Critical Care Critical Care patient: Yes Total Critical Care Time (in minutes): 45 Critical Care Statement: The care of this patient involved high complexity decision making to prevent further life threatening deterioration of the patient 's condition and/or to evalute & treat vital organ system(s) failure or risk of failure. - Discharge Referral Referred to [facility] Yes Physician Referral: Denny Alarcon DO (Neph)
--- NOTE | 2017-01-29 12:24 | PN ---
Progress Note, Physician Chief Complaint: abd pain History of Present Illness: pt was in operating room about to undergo anesthesia. she was found to be in new onset Afib with rate 80-100. case cancelled by anesthesia to get cardiac workup. - Current Medication List Current Medications: Active Medications Atenolol (Tenormin -) 100 mg PO DAILY [facility] Last Admin: 01/29/17 09:00 Dose: 100 mg Piperacillin Sod/Tazobactam Sod (Zosyn 3.375gm Ivpb (Pre-Docked)) 50 mls @ 100 mls/hr IVPB Q8H-IV [place] PRN Reason: Protocol Last Admin: 01/29/17 09:05 Dose: 100 mls/hr Dextrose/Sodium Chloride (Dextrose 5%-Normal Saline+20 Meq Kcl -) 1,000 mls @ 75 mls/hr IV ASDIR [facility] Last Admin: 01/28/17 15:00 Dose: 75 mls/hr Morphine Sulfate (Morphine Injection -) 2 mg IVPUSH Q4H PRN PRN Reason: PAIN Last Admin: 01/29/17 06:46 Dose: 2 mg Ondansetron HCl (Zofran Injection) 4 mg IVPB Q6H PRN PRN Reason: NAUSEA Pantoprazole Sodium (Protonix -) 40 mg PO HS [facility] Last Admin: 01/28/17 21:29 Dose: 40 mg Topiramate (Topamax -) 25 mg PO BID [facility] Last Admin: 01/29/17 09:00 Dose: 25 mg Valacyclovir HCl (Valtrex -) 500 mg PO DAILY [facility] Last Admin: 01/29/17 09:00 Dose: 500 mg - Objective Vital Signs: Vital Signs Temperature 97.9 F 01/29/17 08:21 Pulse Rate 95 H 01/29/17 08:21 Respiratory Rate 18 01/29/17 09:00 Blood Pressure 142/90 01/29/17 08:21 O2 Sat by Pulse Oximetry (%) 94 L 01/29/17 09:00 Constitutional: Yes: No Distress, Calm Eyes: Yes: Conjunctiva Clear, EOM Intact HENT: Yes: Atraumatic, Normocephalic Neck: Yes: Supple Respiratory: Yes: Regular, CTA Bilaterally Gastrointestinal: Yes: Soft. No: Distention, Tenderness Genitourinary: No: CVA Tenderness - Left, CVA Tenderness - Right Breast(s): No: Mass, Nipple Inversion Musculoskeletal: No: Joint Stiffness Extremities: No: Calf Tenderness, Erythema Integumentary: No: Erythema, Rash Neurological: Yes: Alert, Oriented Psychiatric: Yes: Alert, Oriented Labs: CBC, BMP 01/29/17 07:00 01/29/17 07:00 INR, PTT INR 1.49 (0.82-1.09) H 01/29/17 07:00 Problem List - Problems (1) Acute cholecystitis Assessment/Plan: recommend transfer to [facility] will get cards clearance and perform operation there reg diet npo after mn Code(s): K81.0 - ACUTE CHOLECYSTITIS
[2017-01-29] MEDS ORDERED: MAGNESIUM SULFATE 2 GM in SODIUM CHLORIDE 100 ML IVPB ONE (12:36)
[2017-01-29] MEDS ORDERED: HEPARIN INFUSION - 500 ML IVPB SCH ×2 (12:45→19:30)
--- NOTE | 2017-01-29 12:48 | EKG ---
Test Reason : Blood Pressure : / mmHG Vent. Rate : 095 BPM Atrial Rate : 066 BPM P-R Int : 000 ms QRS Dur : 092 ms QT Int : 328 ms P-R-T Axes : 000 075 033 degrees QTc Int : 412 ms ATRIAL FIBRILLATION POOR R WAVE PROGRESSION ABNORMAL ECG WHEN COMPARED WITH ECG OF 27-JAN-2017 13:49, ATRIAL FIBRILLATION HAS REPLACED SINUS RHYTHM POOR R WAVE PROGRESSION is now present Confirmed by CHARLI QUIROZ MD ([id number]) on 01/29/2017 12:48:20 PM Referred By: Confirmed By:CHARLI QUIROZ MD
[2017-01-29] MEDS ORDERED: MAGNESIUM SULF 50% (8.12 MEQ/2 ML-1 GM VIAL) IVPB ONE (13:00)
[2017-01-29] MEDS ORDERED: POTASSIUM CHLORIDE TABS 20 MEQ TABLET.ER (FP) PO ONE (13:00)
[2017-01-29] MEDS ORDERED: POTASSIUM PHOSPHATE 21 MM in SODIUM CHLORIDE 250 ML IVPB ONE (14:00)
[2017-01-29 16:09] LABS: FREE T4 1.79 ng/dl (0.76-1.46); THYROID STIMULATING HORMONE 0.2 uIU/ml (0.358-3.74)
--- NOTE | 2017-01-29 16:29 | HOSP ---
Physical Examination Vital Signs: Vital Signs Temperature 99.5 F 01/29/17 14:58 Pulse Rate 85 01/29/17 14:58 Respiratory Rate 19 01/29/17 14:58 Blood Pressure 115/63 01/29/17 14:58 O2 Sat by Pulse Oximetry (%) 95 01/29/17 14:58 Labs: CBC, BMP 01/29/17 07:00 01/29/17 07:00 Hospitalist Encounter Assessment: Patient transferred from [facility] unit. Briefly, this is an 87 year old female with a history of GERD, breast CA, HTN, migraines, and hiatal hernia admitted from the [facility] ED on 01/27 with acute cholecystitis. While in the operating room today prior to administration of anesthesia, patient was noted to be in new onset atrial fibrillation with a ventricular rate of 80-100. Patient is resting comfortably, Afib rate of 88-94 on telemetry. -Rate control as needed; currently stable. -[id number]= 4. Heparin gtt for now; likely AC after surgical issues resolved. -Cardiovascular consultation for further management and surgical clearance. -Continue broad-spectrum abx for acute cholecystitis. -Continue morphine and zofran prn pain and nausea. -Resume diet.
[2017-01-29 17:41] LABS: TROPONIN I (DFP) 0.03 ng/ml (0.03-0.50)
--- NOTE | 2017-01-29 18:41 | CON.CARD ---
Cardiology Consult (text) - Consultation Consultation Note: CC: afib/pre-op clearance 87-year-old female with a significant past medical history of HTN, diastolic heart failure, migraine (? tia), GERD and hiatal hernia, who presents with acute cholecystitiis, surgery now delayed due to acute onset afib. patient states she has been on long-standing lasix due to history of accumulation of fluid in her body, particularly in legs. Currently sx's stable at baseline. denies h/o sob. Cannot walk up a flight of stairs, primarily limited by OA. Patient denies h/o cva/tia, but endorses long history of migraine h/a with associated blurred vision, intermittent dysphagia, and intermittent loss of strength in one upper extremity. Has not had recent neurologic work up to confirm migraine vs. tia. no h/o cad, dm, ckd. + significant abdominal pain. no orthponea, pnd, cp, palps, dizziness, sob, transient neurologic symptoms. no cough, congestion, rashes, history of bleeding or falls. PAST MEDICAL HISTORY: hypertension, breast cancer status post right mastectomy , GERD, hiatal hernia, CHF, migraines PAST SURGICAL HISTORY: Right mastectomy, bilateral cataract, bilateral knee replacement. Social History: Smoking: Ceased in 1968 Alcohol: Ceased in 1968 Drugs: Denied Family History: Mom: in 70s from a stroke. History of heart problems (no mi ). Father; at 77 history of breast cancer. Sister: in her 80s. History of CHF, breast cancer, diabetes, varicose venous. ros: per hpi Ambulatory Orders Alendronate Na [Fosamax (Weekly)] 70 mg PO Q7D 05/18/13 Atenolol [Tenormin] 100 mg PO DAILY 05/18/13 Furosemide [Lasix] 40 mg PO DAILY 05/18/13 Pantoprazole Sodium 40 mg PO HS 05/18/13 Topiramate 25 mg PO BID 05/18/13 Prednisone [Deltasone -] 20 mg PO DAILY #15 tablet 08/11/16 Piperonyl Butoxide/Pyrethrins [Ra Lice Pyrinyl Shampoo] 237 ml TP AM #1 shampoo 08/13/16 Valacyclovir HCl [Valtrex] 500 mg PO DAILY 01/27/17 Current Medications Atenolol (Tenormin -) 100 mg PO DAILY [facility] Last Admin: 01/29/17 09:00 Dose: 100 mg Piperacillin Sod/Tazobactam Sod (Zosyn 3.375gm Ivpb (Pre-Docked)) 50 mls @ 100 mls/hr IVPB Q8H-IV [place] PRN Reason: Protocol Last Admin: 01/29/17 17:35 Dose: 100 mls/hr Heparin Sodium/Dextrose (Heparin Infusion -) 500 mls @ 16 mls/hr IVPB TITR [place] ; 800 UNITS/HR PRN Reason: Protocol Last Admin: 01/29/17 14:43 Dose: 16 mls/hr Morphine Sulfate (Morphine Injection -) 2 mg IVPUSH Q4H PRN PRN Reason: PAIN Last Admin: 01/29/17 06:46 Dose: 2 mg Ondansetron HCl (Zofran Injection) 4 mg IVPB Q6H PRN PRN Reason: NAUSEA Pantoprazole Sodium (Protonix -) 40 mg PO HS [facility] Last Admin: 01/28/17 21:29 Dose: 40 mg Topiramate (Topamax -) 25 mg PO BID [facility] Last Admin: 01/29/17 09:00 Dose: 25 mg Valacyclovir HCl (Valtrex -) 500 mg PO DAILY [facility] Last Admin: 01/29/17 09:00 Dose: 500 mg Vital Signs - 24 hr 01/28/17 01/28/17 01/29/17 19:50 22:42 04:00 Temperature 98.7 F 98.1 F Pulse Rate 88 96 H Respiratory 20 20 20 Rate Blood Pressure 116/59 127/68 O2 Sat by Pulse 96 94 L Oximetry (%) 01/29/17 01/29/17 01/29/17 08:21 09:00 12:24 Temperature 97.9 F 98.4 F Pulse Rate 95 H 81 Respiratory 18 18 20 Rate Blood Pressure 142/90 107/54 O2 Sat by Pulse 94 L 95 Oximetry (%) 01/29/17 01/29/17 14:58 16:54 Temperature 99.5 F 97.4 F L Pulse Rate 85 93 H Respiratory 19 19 Rate Blood Pressure 115/63 114/86 O2 Sat by Pulse 95 Oximetry (%) Intake & Output 01/27/17 01/28/17 01/29/17 01/30/17 07:59 07:59 07:59 07:59 Intake Total 1000 1450 Balance 1000 1450 Weight 220 lb NAD, calm jvd flat, neck supple bibasilar crackles, nl effort irregularly, irregular nl s1, s2 no mrg + bs soft nd, + distension ext with trace le edema, no cyanosis, clubbing + dp/pt aaox3 no jaundice, diaphoresis no carotid bruits CBC, BMP 01/29/17 07:00 01/29/17 07:00 EKG: afib, vr 95 bp. poor r wave progression. no ischemic changes. tele: afib, initial hr's 110's-130's. now 100's. 01/29 echo: mild conc lvh. nl lv/rv size/fn. 1+ lae, 1+ tr, 1+ phtn cxr: large hiatal hernia. possible small right effusion 87-year-old female with a significant past medical history of HTN, diastolic heart failure, migraine (? tia), GERD and hiatal hernia, who presents with acute cholecystitiis, surgery now delayed due to acute onset afib. Pre-op clearance - RCRI of 1-2, (chf, ?TIA) with advanced age and poor functional status has estimated intermediate risk for jerardo-operative CV events. Atrial fibrillation is currently rate controlled and does not prevent her from moving forward with surgery. No other active cardiac issues that would require further CV testing. Caution with IVF. Electrolyte repletion. Afib - Will need skilled nursing AC, currently on heparin drip. - rate controlled with atenolol, can give IV metoprolol if need jerardo-operatively - pain control HTN - controlled on current regimen, avoid hypotension
[2017-01-29] MEDS: PANTOPRAZOLE 40 MG TABLET (FP) PO SCH (21:18)
[2017-01-30] MEDS: PIPERACILLIN/TAZOB 3.375 GM 50 ML IVPB SCH ×3 (01:35→18:41)
[2017-01-30 08:56] LABS: INR 1.33 (0.82-1.09); PROTHROMBIN TIME (PATIENT) 14.7 SEC (9.98-11.88)
[2017-01-30] MEDS: TOPIRAMATE 25 MG TABLET (FP) PO SCH ×2 (09:39→21:53)
[2017-01-30] MEDS: valACYclovir HCL 500 MG TABLET (FP) PO SCH (09:39)
[2017-01-30] MEDS: ATENOLOL 50 MG TABLET (FP) PO SCH (09:39)
--- NOTE | 2017-01-30 10:15 | PN ---
Progress Note (short form) - Note Progress Note: s: no cp sob palps dizzy o: Vital Signs Period Temp Pulse Resp BP Sys/Baez Pulse Ox Last 24 Hr 97.4 F-99.5 F 81-102 18-20 107-138/54-86 93-95 NAD, calm jvd flat, neck supple bibasilar crackles, nl effort irregularly, irregular nl s1, s2 no mrg + bs soft nd, + distension ext with trace le edema, no cyanosis, clubbing aaox3 no jaundice, diaphoresis Current Medications Generic Name Dose Route Start Last Admin Trade Name Freq PRN Reason Stop Dose Admin Atenolol 100 mg 01/28/17 10:00 01/30/17 09:39 Tenormin - PO 100 mg DAILY [place] Administration Piperacillin Sod/Tazobactam Sod 50 mls @ 100 mls/hr 01/28/17 10:15 01/30/17 09: 38 Zosyn 3.375gm Ivpb (Pre-Docked) IVPB 100 mls/hr Q8H-IV [place] Administration Protocol Heparin Sodium/Dextrose 500 mls @ 16 mls/hr 01/29/17 19:30 01/29/17 19:30 Heparin Infusion - IVPB 16 mls/hr TITR [place] Administration Protocol 800 UNITS/HR Morphine Sulfate 2 mg 01/27/17 21:32 01/29/17 06:46 Morphine Injection - IVPUSH 2 mg Q4H PRN Administration PAIN Ondansetron HCl 4 mg 01/27/17 21:32 Zofran Injection IVPB Q6H PRN NAUSEA Pantoprazole Sodium 40 mg 01/27/17 22:00 01/29/17 21:18 Protonix - PO 40 mg HS [place] Administration Topiramate 25 mg 01/27/17 22:00 01/30/17 09:39 Topamax - PO Not Given BID [place] Valacyclovir HCl 500 mg 01/28/17 10:00 01/30/17 09:39 Valtrex - PO Not Given DAILY [place] CBC, BMP 01/29/17 07:00 01/29/17 07:00 EKG: afib, vr 95 bp. poor r wave progression. no ischemic changes. tele: afib, rate controlledd 01/29 echo: mild conc lvh. nl lv/rv size/fn. 1+ lae, 1+ tr, 1+ phtn cxr: large hiatal hernia. possible small right effusion a/p: 87-year-old female with a significant past medical history of HTN, diastolic heart failure, migraine (? tia), GERD and hiatal hernia, who presents with acute cholecystitiis, surgery now delayed due to acute onset afib. Pre-op clearance - RCRI of 1-2, (chf, ?TIA) with advanced age and poor functional status has estimated intermediate risk for jerardo-operative CV events. Atrial fibrillation is currently rate controlled and does not prevent her from moving forward with surgery. No other active cardiac issues that would require further CV testing. Caution with IVF. Afib - Will need residential AC, currently on heparin drip, can change to NOAC post op when ok by surgery - rate controlled with atenolol, can give IV metoprolol if need jerardo-operatively - pain control HTN - controlled on current regimen
[2017-01-30] MEDS ORDERED: ROCURONIUM BROMIDE 50 MG/5 ML VIAL ONE (13:32)
[2017-01-30] MEDS ORDERED: PROPOFOL 20 ML ONE ×2 (13:32)
[2017-01-30] MEDS ORDERED: MIDAZOLAM HCL 2 MG/2 ML SINGLE DOSE VIAL ONE (13:33)
[2017-01-30] MEDS ORDERED: ceFAZolin SODIUM 1 GM VIAL ONE (14:00)
[2017-01-30] MEDS ORDERED: DESFLURANE GAS 240 ML BOTTLE IH ONE (14:25)
[2017-01-30] MEDS ORDERED: GLYCOPYRROLATE 0.2 MG/1 ML VIAL ONE ×2 (14:27→14:31)
[2017-01-30] MEDS ORDERED: ceFAZolin SODIUM 1 GM VIAL IVPB ONE (14:51)
[2017-01-30] MEDS ORDERED: BUPIVACAINE HCL/PF 0.5% (5MG/ML) 10 ML VIAL ONE (14:54)
[2017-01-30] MEDS ORDERED: BUPIVACAINE HCL/PF 0.5% (5MG/ML) 10 ML VIAL IJ ONE (15:00)
[2017-01-30] MEDS ORDERED: NEOSTIGMINE METHYLSULFATE 0.5 MG/ML - 10 ML MDV ONE (15:07)
--- NOTE | 2017-01-30 15:26 | OP ---
Operative Note - Note: Operative Date: 01/30/17 Pre-Operative Diagnosis: cholecystitis Operation: laparoscopic cholecystectomy Findings: gangrenous cholecystitis with abscess and copious purulent drainage. +bile tinged ascites. Post-Operative Diagnosis: Same as Pre-op Surgeon: Eleno Enrqiue Manufacturing Engineer Supervisor: Jenna Virk Anesthesia: General Specimens Removed: gallbladder, Estimated Blood Loss (mls): 50 Drains & Tubes with Location: YURY drain near cystic duct remnant/abscess cavity Operative Report Dictated: Yes
[2017-01-30] MEDS ORDERED: ONDANSETRON 4 MG/2 ML VIAL IVPUSH PRN (15:38)
[2017-01-30] MEDS ORDERED: LACTATED RINGERS SOLUTION 1,000 ML IV SCH (15:45)
[2017-01-30] MEDS ORDERED: ONDANSETRON 4 MG/2 ML VIAL IVPB PRN (16:07)
[2017-01-30] MEDS ORDERED: MAGNESIUM SULFATE 2 GM in SODIUM CHLORIDE 100 ML IVPB ONE (16:07)
--- NOTE | 2017-01-30 16:07 | PN ---
Progress Note, Physician History of Present Illness: Post op lap ellen Operative findings noted- gangrenous GB with abscess Afebrile WBC improved - Current Medication List Current Medications: Active Medications Atenolol (Tenormin -) 100 mg PO DAILY [facility] Last Admin: 01/30/17 09:39 Dose: 100 mg Fentanyl (Sublimaze Injection -) 25 mcg IVPUSH [id number] PRN PRN Reason: PAIN Stop: 02/02/17 15:39 Piperacillin Sod/Tazobactam Sod (Zosyn 3.375gm Ivpb (Pre-Docked)) 50 mls @ 100 mls/hr IVPB Q8H-IV [place] PRN Reason: Protocol Last Admin: 01/30/17 09:38 Dose: 100 mls/hr Heparin Sodium/Dextrose (Heparin Infusion -) 500 mls @ 16 mls/hr IVPB TITR [place] ; 800 UNITS/HR PRN Reason: Protocol Last Admin: 01/29/17 19:30 Dose: 16 mls/hr Lactated Ringer's (Lactated Ringers Solution) 1,000 mls @ 75 mls/hr IV ASDIR [place] Morphine Sulfate (Morphine Injection -) 2 mg IVPUSH Q4H PRN PRN Reason: PAIN Last Admin: 01/29/17 06:46 Dose: 2 mg Ondansetron HCl (Zofran Injection) 4 mg IVPB Q6H PRN PRN Reason: NAUSEA Ondansetron HCl (Zofran Injection) 4 mg IVPUSH Q6H PRN PRN Reason: NAUSEA AND/OR VOMITING Stop: 01/30/17 21:39 Pantoprazole Sodium (Protonix -) 40 mg PO HS [facility] Last Admin: 01/29/17 21:18 Dose: 40 mg Topiramate (Topamax -) 25 mg PO BID [facility] Last Admin: 01/30/17 09:39 Dose: Not Given Valacyclovir HCl (Valtrex -) 500 mg PO DAILY [facility] Last Admin: 01/30/17 09:39 Dose: Not Given - Objective Vital Signs: Vital Signs Temperature 97.8 F 01/30/17 09:46 Pulse Rate 99 H 01/30/17 09:46 Respiratory Rate 20 01/30/17 09:46 Blood Pressure 138/82 01/30/17 09:46 O2 Sat by Pulse Oximetry (%) 95 01/30/17 09:00 Constitutional: Yes: No Distress Eyes: Yes: Conjunctiva Clear Cardiovascular: Yes: Regular Rate and Rhythm, S1, S2 Respiratory: Yes: CTA Bilaterally Gastrointestinal: Yes: Normal Bowel Sounds, Soft, Other (+ post op tenderness) Labs: CBC, BMP 01/29/17 07:00 01/29/17 07:00 INR, PTT INR 1.33 (0.82-1.09) H 01/30/17 06:30 Assessment/Plan Post op lap ellen- gangrenous gall bladder/ abscess Leukocytosis, possible biliary sepsis Continue empiric zosyn
--- NOTE | 2017-01-30 16:22 | OP ---
DATE OF OPERATION: 01/30/2017 PROCEDURE: Laparoscopic cholecystectomy. PREOPERATIVE DIAGNOSIS: Cholecystitis. POSTOPERATIVE DIAGNOSIS: Gangrenous cholecystitis with empyema of the gallbladder as well as an abscess next to the gallbladder. SURGEON: Riaz Enrique MD BIAS BINDING CUTTER: MARCELA Nix ANESTHESIA: General endotracheal anesthesia. DRAINS: I left a size 10 flat YURY drain in the gallbladder fossa near the cystic duct. OPERATIVE NOTE IN DETAIL: The patient was brought to the operating room after confirming name, date of , medical record number. She was placed in supine position. SCDs for DVT prophylaxis. Heparin was turned off approximately 6 hours earlier in the day. She was then induced and intubated by the anesthesiologist. A time-out was then performed. A 1-inch supraumbilical incision was made. I bluntly dissected down to the fascia. I used electrocautery to go through the fascia and I used a Mariposa clamp to go through the peritoneum. I then placed a 10-mm balloon Keke type trocar inside the abdomen and insufflated the abdomen to a pressure of 15 mmHg. I then noticed some bile-tinged ascites in the right upper quadrant and then I placed two 5-mm trocars in the right tomas-abdomen and 1 in the subxiphoid region. The gallbladder was not immediately visible and the patient was placed in reverse Trendelenburg position with some right side up. After we gently teased off the mesentery of small bowel and some omentum which had covered the gallbladder, it was immediately obvious that the gallbladder was maroon red and obviously necrotic. We then placed a gallbladder needle and aspirated the gallbladder as best as we could and a copious amount of foul-smelling fluid was aspirated. We then proceeded to lift the gallbladder and continue to dissect the gallbladder out of this shell, which included small-bowel mesentery and omentum, with great difficulty. There was a lot of inflammation near the neck of the gallbladder. Eventually I was able to dissect out the cystic duct and I confirmed that it was the cystic duct, as there were no structures returning to the liver bed. There was a lot of inflamed fat near the cystic duct and it was very difficult to ascertain what was duct and what was inflamed tissue. I used a lot of blunt dissection with irrigation and then hook electrocautery to free up the peritoneum on the lateral and medial aspects of the gallbladder as best as I could to provide as much mobility as I could. I then dissected under the gallbladder as well to further prove that I was not underneath the common bile duct. Once I was 100% confident that the cystic duct went directly into the gallbladder and that there were no structures returning to the liver bed, I then placed 5 clips on the cystic duct and I placed extra because of my concern of the necrotic cystic duct. I cut leaving 4 clips on the patient and used hook electrocautery to take the gallbladder off the liver bed. There was a structure which I thought could have been the artery; however, was not 100%, and my suspicion was that the artery was already thrombosed. Nonetheless, I placed some metal clips on that structure I thought could have been the artery, then used hook electrocautery to take the gallbladder off the liver bed. It was noted laterally that the gallbladder was adherent to the liver and this had to be peeled off and I knew that this was not peeling off the capsule because it was not bleeding as much as if I would have removed the capsule. After I took the gallbladder off, there was a lot of pus coming out of the gallbladder and it was tearing just from grabbing it. This was all irrigated and aspirated out and then I placed it in a 10-mm specimen retrieval bag and sent it off the field for permanent examination. Because the gallbladder was so large, I placed my finger inside the 10-mm port and made the incision larger. I connected it to a small ventral hernia and then with this bigger opening I removed the gallbladder. I then replaced the port and then placed my [place] through the most lateral 5-mm trocar and through that trocar into the subxiphoid trocar and then pulled a size 10 YURY which I had previously cut, through the incisions. I then made sure that the drain was next to the cystic duct in the gallbladder bed fossa because of the prior abscess cavity, and then I sutured it in place with a silk suture. I then removed all the ports, desufflated the abdomen, and then closed the ventral hernia plus supraumbilical fascia with number 1 Vicryl in [id number] fashion x2. The skin and subcutaneous tissues were ensured for hemostasis and then reapproximated with 4-0 Monocryl. Dermabond was then applied. All counts were correct. The patient is going to be sent to the ICU for postoperative care because of new-onset atrial fibrillation and because of the concern for sepsis because of the copious spillage of purulent material from a necrotic gallbladder. Antibiotics will be continued because of the abscess cavity. A bulb was placed on the drain. RIAZ ENRIQUE M.D. CORE[facility]/[id number]
--- NOTE | 2017-01-30 16:49 | CONSULT ---
Consultation: REQUESTING PROVIDER: CONSULT REQUEST: We have been asked to medically evaluate this patient for ( specify). HISTORY OF PRESENT ILLNESS: patient is a 87-year-old female with a significant past medical history of GERD, breast CA, CHF, migraines, and hiatal hernia. patient was admitted from the emergency department for acute cholecystitis. Patient received from OR. patient is sleepy but arousable. complain of pain in abdomen at site of ports, denies pain abdomen. patient oral mucosa is dr , bp 114/77, hr 101, irregular drain in situ with seosensigious discharge. on 4L nc spo2 95% PAST MEDICAL HISTORY: hypertension, breast cancer status post right mastectomy , GERD, hiatal hernia, CHF, migraines PAST SURGICAL HISTORY: Right mastectomy, bilateral cataract, bilateral knee replacement. Social History: Smoking: Ceased in 1968 Alcohol: Ceased in 1968 Drugs: Denied REVIEW OF SYSTEMS: unobtainable as patient is sleepy patient woke yup on calling and just complained of pain in abdomen PHYSICAL EXAMINATION Vital Signs - 24 hr 01/29/17 01/29/17 01/30/17 16:54 21:00 02:12 Temperature 97.4 F L 98.6 F 97.9 F Pulse Rate 93 H 96 H 101 H Respiratory 19 18 18 Rate Blood Pressure 114/86 118/78 122/75 O2 Sat by Pulse 93 L Oximetry (%) 01/30/17 01/30/17 01/30/17 06:00 09:00 09:46 Temperature 97.9 F 97.8 F Pulse Rate 102 H 99 H Respiratory 18 20 20 Rate Blood Pressure 133/80 138/82 O2 Sat by Pulse 95 Oximetry (%) GENERAL: sleepy but arrousable, hard of hearing, doesn't have her hearing aid with her HEAD: Normal with no signs of trauma. EYES: right dilated ( h/o surgery). left 1 to 1.5 mm reactive to light EARS, NOSE, THROAT: Ears normal, nares patent, oropharynx clear without exudates.dry mucous membranes. NECK: Normal range of motion, LUNGS: Breath sounds equal, clear to auscultation bilaterally decrease at base, no wheez, HEART: s1s2 normal, irregularly irregular. ABDOMEN: Soft, mild tender, not distended, bowel sounds -, drain in situ . UPPER EXTREMITIES: 2+ pulses, warm, well-perfused. No cyanosis. LOWER EXTREMITIES: No calf tenderness. No peripheral edema. SKIN: Warm, dry, Laboratory Results - last 24 hr 01/29/17 01/29/17 01/29/17 07:00 12:47 18:00 INR PTT ([place] FS) 41.2 H Troponin I 0.03 Blood Type Cancelled Antibody Screen Cancelled Spec Expiration Date Cancelled 01/30/17 01/30/17 01/30/17 06:30 06:30 06:30 INR 1.33 H PTT (Actin FS) 32.5 Troponin I Blood Type O POSITIVE Antibody Screen Negative Spec Expiration Date Active Medications Generic Name Dose Route Start Last Admin Trade Name Freq PRN Reason Stop Dose Admin Atenolol 100 mg 01/31/17 10:00 Tenormin - PO DAILY [facility] Fentanyl 25 mcg 01/30/17 15:38 01/30/17 15:54 Sublimaze Injection - IVPUSH 02/02/17 15:39 25 mcg [id number] PRN Administration PAIN Lactated Ringer's 1,000 mls @ 75 mls/hr 01/30/17 15:45 Lactated Ringers Solution IV ASDIR [place] Piperacillin Sod/Tazobactam Sod 50 mls @ 100 mls/hr 01/30/17 18:00 Zosyn 3.375gm Ivpb (Pre-Docked) IVPB Q8H-IV [place] Protocol Morphine Sulfate 2 mg 01/30/17 16:07 Morphine Injection - IVPUSH Q4H PRN PAIN Ondansetron HCl 4 mg 01/30/17 15:38 Zofran Injection IVPUSH 01/30/17 21:39 Q6H PRN NAUSEA AND/OR VOMITING Ondansetron HCl 4 mg 01/30/17 16:07 Zofran Injection IVPB Q6H PRN NAUSEA Pantoprazole Sodium 40 mg 01/30/17 22:00 Protonix - PO HS [facility] Topiramate 25 mg 01/30/17 22:00 Topamax - PO BID [place] Valacyclovir HCl 500 mg 01/31/17 10:00 Valtrex - PO DAILY [facility] EKG: afib, vr 95 bp. poor r wave progression. no ischemic changes. 01/29 echo: mild conc lvh. nl lv/rv size/fn. 1+ lae, 1+ tr, 1+ phtn cxr: large hiatal hernia. possible small right effusion ASSESSMENT/PLAN: S/p lap ellen for acute cholecystitis Cont zosyn, ID consult Iv fluid monitor vitals monitor intake/ output monitor drain output pain controle on morph zofran for nausea or vomiting continue protonix new onset afib on rate control with atenolol can give metoprolol Iv prn will start on ac once cleared from surgery. Pre op patient was on heparin drip. Patient need termite exterminator ac, cardiology on case cardiac monitoring repeat electrolyte hypertension - continue atenolol - b/p monitoring migraines cont home topamax GERD/Hiatal hernia cont protonix DVT PPX scd b/l FEN RL 75ml/hr electrolyte; repeat nutrition : on clear liquid from dinner Dispo: pt currently requires inpatient management of her emergent condition. Visit type - Emergency Visit Emergency Visit: Yes ED Registration Date: 01/27/17 Care time: The patient presented to the Emergency Department on the above date and was hospitalized for further evaluation of their emergent condition. - New Patient This patient is new to me today: Yes Date on this admission: 01/30/17 - Critical Care Critical Care patient: Yes Total Critical Care Time (in minutes): 45 Critical Care Statement: The care of this patient involved high complexity decision making to prevent further life threatening deterioration of the patient 's condition and/or to evalute & treat vital organ system(s) failure or risk of failure.
[2017-01-30] MEDS ORDERED: ACETAMINOPHEN 1000 MG/100 ML VIAL (NON FORMULARY) IVPB ONE (17:43)
--- NOTE | 2017-01-30 18:41 | PN ---
Physical Exam: SUBJECTIVE: Patient seen and examined in ICU s/p surgery. She is lethargic from procedure. OBJECTIVE: Vital Signs Period Temp Pulse Resp BP Sys/Baez Pulse Ox Last 24 Hr 97.8 F-98.6 F 90-102 16-20 107-138/58-83 93-100 PE Neuro: arouses to verbal stimuli, nad Pulm: CTAB CV: s1 s2 irregular rate and rhythm Abd: + Ashok drain with serosanguinous fluid, port site CDI, abd mild distention Ext: warm, no le edema, R knee healed scar Laboratory Results - last 24 hr 01/29/17 01/29/17 01/30/17 07:00 18:00 06:30 INR 1.33 H PTT (Actin FS) 41.2 H Blood Type Cancelled Antibody Screen Cancelled Spec Expiration Date Cancelled 01/30/17 01/30/17 06:30 06:30 INR PTT (Actin FS) 32.5 Blood Type O POSITIVE Antibody Screen Negative Spec Expiration Date Active Medications Generic Name Dose Route Start Last Admin Trade Name Freq PRN Reason Stop Dose Admin Atenolol 100 mg 01/31/17 10:00 Tenormin - PO DAILY [facility] Chlorhexidine Gluconate 1 applic 01/30/17 22:00 Hibiclens For Decolonization - TP HS [place] Fentanyl 25 mcg 01/30/17 15:38 01/30/17 15:54 Sublimaze Injection - IVPUSH 02/02/17 15:39 25 mcg [id number] PRN Administration PAIN Lactated Ringer's 1,000 mls @ 75 mls/hr 01/30/17 15:45 Lactated Ringers Solution IV ASDIR [place] Piperacillin Sod/Tazobactam Sod 50 mls @ 100 mls/hr 01/30/17 18:00 Zosyn 3.375gm Ivpb (Pre-Docked) IVPB Q8H-IV [place] Protocol Morphine Sulfate 2 mg 01/30/17 16:07 Morphine Injection - IVPUSH Q4H PRN [place]IN Mupirocin 1 applic 01/30/17 22:00 Bactroban Ointment (For Decolonization) - NS 02/04/17 21:59 BID [place] Ondansetron HCl 4 mg 01/30/17 15:38 Zofran Injection IVPUSH 01/30/17 21:39 Q6H PRN NAUSEA AND/OR VOMITING Ondansetron HCl 4 mg 01/30/17 16:07 Zofran Injection IVPB Q6H PRN NAUSEA Pantoprazole Sodium 40 mg 01/30/17 22:00 Protonix 40mg Ivpb (Pre-Docked) IVPB HS [place] Topiramate 25 mg 01/30/17 22:00 Topamax - PO BID [place] Valacyclovir HCl 500 mg 01/31/17 10:00 Valtrex - PO DAILY [facility] Assessment: 87 year old female with a history of GERD, breast CA, HTN, migraines , and hiatal hernia admitted from the [place] ED on 01/27 with acute cholecystitis. While in the operating room today prior to administration of anesthesia, patient was noted to be in new onset atrial fibrillation with a ventricular rate of 80-100 and transferred to [place]. She was cleared for surgery and was done 01/30. Plan: 1. Acute cholecystitis - s/p lap cholecystectomy, found to be gangrenous with abscess and purulent drainage - In ICU for overnight monitoring for sepsis - Continue fluids LR @ 75cc/hr - Continue Zosyn - Surgery/ID seeing 2. New onset A fib - Rate controlled - Continue atenolol - Metoprolol prn - Start AC once surgery clearance 3. HTN - On atenolol 4. Migraines - Cont Topamax 5. GERD/Hiatal hernia - Cont protonix 6. Hypokalemia - Replete 40meq x1 7. Hypomagnesemia - Replete 2gm mg x1 goal of 2 8. ? HPV v shingles - Cont valtrex - Will inquire once pt awakens 9. DVT PPX - SCD's, heparin gtt on hold for s/p surgery Visit type - Emergency Visit Emergency Visit: Yes ED Registration Date: 01/27/17 Care time: The patient presented to the Emergency Department on the above date and was hospitalized for further evaluation of their emergent condition. - New Patient This patient is new to me today: Yes Date on this admission: 01/30/17 - Critical Care Critical Care patient: No
--- NOTE | 2017-01-30 20:25 | CONSULT ---
Consult Consult Specialty:: Pulmonary/ Critical Care Referred by:: Kiley Bell - History of Present Illness Chief Complaint: s/p lap ellen History of Present Illness: 87 y/o woman with h/o GERD, breast CA, HTN, diastolic heart failure, migraines and hiatal hernia who presented to [place] ED on 01/27 with diffuse abdominal pain x 2 days. She was noted to have WBC 22 and lactate 1.8 as well as imaging consistent with acute cholecystitis and was admitted with plan for surgical intervention. While in the OR prior to receiving anesthesia pt was noted to be in new onset afib and was transferred to [place] for cardiac clearance. She was cleared for surgery and underwent lap ellen today on 01/30. She was found to have gangrenous cholecystitis with abscess and copious purulent drainage with bile tinged ascites. OR course otherwise unremarkable and pt was admitted to ICU. Current Medications Atenolol (Tenormin -) 100 mg PO DAILY [facility] Chlorhexidine Gluconate (Hibiclens For Decolonization -) 1 applic TP HS [place] Fentanyl (Sublimaze Injection -) 25 mcg IVPUSH [id number] PRN PRN Reason: PAIN Stop: 02/02/17 15:39 Last Admin: 01/30/17 15:54 Dose: 25 mcg Fentanyl (Sublimaze Injection -) 25 mcg IVPUSH [id number] PRN PRN Reason: PAIN Stop: 02/02/17 18:42 Lactated Ringer's (Lactated Ringers Solution) 1,000 mls @ 75 mls/hr IV ASDIR [place] Last Admin: 01/30/17 18:42 Dose: Not Given Piperacillin Sod/Tazobactam Sod (Zosyn 3.375gm Ivpb (Pre-Docked)) 50 mls @ 100 mls/hr IVPB Q8H-IV [place] PRN Reason: Protocol Last Admin: 01/30/17 18:41 Dose: 100 mls/hr Morphine Sulfate (Morphine Injection -) 2 mg IVPUSH Q4H PRN PRN Reason: PAIN Mupirocin (Bactroban Ointment (For Decolonization) -) 1 applic NS BID [place] Stop: 02/04/17 21:59 Ondansetron HCl (Zofran Injection) 4 mg IVPUSH Q6H PRN PRN Reason: NAUSEA AND/OR VOMITING Stop: 01/30/17 21:39 Ondansetron HCl (Zofran Injection) 4 mg IVPB Q6H PRN PRN Reason: NAUSEA Pantoprazole Sodium (Protonix 40mg Ivpb (Pre-Docked)) 40 mg IVPB HS [place] Topiramate (Topamax -) 25 mg PO BID [place] Valacyclovir HCl (Valtrex -) 500 mg PO DAILY [place] - History Source History Provided By: Patient, Medical Record - Past Medical History TEMPERER: Yes: Migraine Cardio/Vascular: Yes: CHF, HTN Gastrointestinal: Yes: GERD, Hiatal Hernia Heme/Onc: Yes: Cancer (Breast CA) - Past Surgical History Past Surgical History: Yes: Cataract Removal, Joint Replacement, Mastectomy - Alcohol/Substance Use Hx Alcohol Use: No - Smoking History Smoking history: Smoker current status UNK Have you smoked in the past 12 months: No Home Medications - Allergies Allergies/Adverse Reactions: Allergies Allergy/AdvReac Type Severity Reaction Status Date / Time codeine Allergy Rash Verified 01/27/17 14:44 - Home Medications Home Medications: Ambulatory Orders Alendronate Na [Fosamax (Weekly)] 70 mg PO Q7D 05/18/13 Atenolol [Tenormin] 100 mg PO DAILY 05/18/13 Furosemide [Lasix] 40 mg PO DAILY 05/18/13 Pantoprazole Sodium 40 mg PO HS 05/18/13 Topiramate 25 mg PO BID 05/18/13 Prednisone [Deltasone -] 20 mg PO DAILY #15 tablet 08/11/16 Piperonyl Butoxide/Pyrethrins [Ra Lice Pyrinyl Shampoo] 237 ml TP AM #1 shampoo 08/13/16 Valacyclovir HCl [Valtrex] 500 mg PO DAILY 01/27/17 Family Disease History - Family Disease History Family History: Unable to Obtain (pt lethargic) Review of Systems Unable to obtain ROS, reason: Pt lethargic Physical Exam Vital Signs: Vital Signs Temperature 98.2 F 01/30/17 17:15 Pulse Rate 98 H 01/30/17 20:00 Respiratory Rate 20 01/30/17 20:00 Blood Pressure 118/69 01/30/17 20:00 O2 Sat by Pulse Oximetry (%) 99 01/30/17 20:00 Constitutional: Yes: Well Nourished, No Distress Eyes: Yes: Cataracts, PERRL (L pupil round reactive, R irregular s/p cateract surgery) HENT: Yes: Normocephalic Cardiovascular: Yes: Pulse Irregular. No: Gallop, Murmur Respiratory: Yes: CTA Bilaterally, On Nasal O2. No: Accessory Muscle Use, Rales , Rhonchi, Wheezes Gastrointestinal: Yes: Tenderness, Other (surgical sites c/d/i, YURY drain draining sero-sanguinous fluid) Extremities: Yes: WNL Edema: No Peripheral Pulses WNL: Yes Integumentary: Yes: WNL, Incision (surgical sites c/d/i) Wound/Incision: Yes: Clean/Dry, Dressing Dry and Intact, Draining (sero- sanguinous in YURY drain) Neurological: Yes: Lethargy, Other (lethargic but arousable post anesthesia, strength equal b/l, answers simple yes/no questions but drifts back to sleep) ...Motor Strength: WNL Labs: CBCD WBC 13.8 K/mm3 (4.0-10.8) H 01/29/17 07:00 RBC 4.23 M/mm3 (3.60-5.2) 01/29/17 07:00 Hgb 13.7 GM/dl (10.7-15.3) 01/29/17 07:00 Hct 39.7 % (32.4-45.2) 01/29/17 07:00 MCV 94.0 fl (80-96) 01/29/17 07:00 MCHC 34.5 g/dl (32.0-36.0) 01/29/17 07:00 RDW 13.4 % (11.6-15.6) 01/29/17 07:00 Plt Count 157 K/MM3 (134-434) 01/29/17 07:00 MPV 9.9 fl (7.5-11.1) 01/29/17 07:00 CMP Sodium 139 mmol/L (136-145) 01/29/17 07:00 Potassium 3.4 mmol/L (3.5-5.1) L 01/29/17 07:00 Chloride 112 mmol/L (98-107) H 01/29/17 07:00 Carbon Dioxide 20 mmol/L (22-28) L 01/29/17 07:00 Anion Gap 7 (8-16) L 01/29/17 07:00 BUN 16 mg/dl (7-18) 01/29/17 07:00 Creatinine 0.6 mg/dl (0.6-1.3) 01/29/17 07:00 Creat Clearance w eGFR > 60 (>60) 01/29/17 07:00 Calcium 7.9 mg/dl (8.4-10.2) L 01/29/17 07:00 Total Bilirubin 1.5 mg/dl (0.2-1.0) H D 01/29/17 07:00 AST 14 U/L (10-42) D 01/29/17 07:00 ALT 18 U/L (10-40) D 01/29/17 07:00 Alkaline Phosphatase 57 U/L (32-92) 01/29/17 07:00 Total Protein 5.2 g/dl (6.4-8.3) L 01/29/17 07:00 Albumin 2.2 g/dl (3.5-5.0) L 01/29/17 07:00 Microbiology 01/27/17 15:54 Blood - Peripheral Venous Blood Culture - Preliminary NO GROWTH OBTAINED AFTER 72 HOURS, INCUBATION TO CONTINUE FOR 2 DAYS. 01/27/17 15:54 Blood - Peripheral Venous Blood Culture - Preliminary NO GROWTH OBTAINED AFTER 72 HOURS, INCUBATION TO CONTINUE FOR 2 DAYS. Imaging - Results Cat Scan: Report Reviewed Ultrasound: Report Reviewed Problem List - Problems (1) Acute cholecystitis Code(s): K81.0 - ACUTE CHOLECYSTITIS (2) Afib Code(s): I48.91 - UNSPECIFIED ATRIAL FIBRILLATION (3) Hypertension Code(s): I10 - ESSENTIAL (PRIMARY) HYPERTENSION (4) GERD (gastroesophageal reflux disease) Code(s): K21.9 - GASTRO-ESOPHAGEAL REFLUX DISEASE WITHOUT ESOPHAGITIS (5) Gangrenous cholecystitis Code(s): K81.0 - ACUTE CHOLECYSTITIS Assessment/Plan 87 y/o woman with h/o GERD, HTN, diastolic heart failure admitted with acute cholecystitis now s/p lap ellen for gangrenous gallbladder, admitted to ICU for monitoring post-op GI/ hepatobiliary: GERD, hiatal hernia at baseline, admitted with acute cholecystitis s/p lap ellen for gangrenous gallbladder with associated abscess -Surgery following -ID following - continue Zosyn -continue standing fluids -ICU monitoring overnight -pain control as needed -protonix for GERD -resume PO diet when pt more awake ID: s/p lap ellen for gangrenous gallbladder and associated abscess, at risk for sepsis -ID following -continue Zosyn as noted above -continue Valtrex and clarify ? HPV vs shingles CV: HTN and diastolic heart failure at baseline, now with new onset Afib now rate controlled -continue atenolol -hold lasix for now - resume as appropriate -pt will need anticoagulation once cleared from surgical standpoint Neuro: migraines -continue home topamax -pain control as needed post-op Misc: -clarify why pt is on home pred PPX: -protonix (home med for GERD) -SCDs for DVT ppx - heparin gtt when cleared from surgical standpoint FULL CODE
[2017-01-30] MEDS: MUPIROCIN 2% TOPICAL OINTMENT FOR DECOLONIZATION NS SCH (21:11)
[2017-01-30] MEDS ORDERED: HEMOQUE TEST 1 EACH EACH ONE (21:47)
[2017-01-30] MEDS ORDERED: PANTOPRAZOLE 40 MG TABLET (FP) PO SCH (22:00)
[2017-01-30] MEDS ORDERED: CHLORHEXIDINE GLUCONATE 4% CLEANSER FOR DECOLONIZATION TP SCH (22:00)
[2017-01-30] MEDS ORDERED: PANTOPRAZOLE SODIUM 40 MG in SODIUM CHLORIDE 100 ML IVPB SCH (22:00)
[2017-01-30] MEDS ORDERED: PANTOPRAZOLE SODIUM 40 MG/100 ML PRE-DOCKED IVPB SCH (22:00)
[2017-01-30 22:51] LABS: CALCIUM 7.7 mg/dL (8.5-10.1)
[2017-01-30 22:52] LABS: COCKROFT - GAULT 124.865; CREATININE 0.5 mg/dL (0.55-1.02)
[2017-01-31] MEDS: PIPERACILLIN/TAZOB 3.375 GM 50 ML IVPB SCH ×3 (01:12→17:53)
[2017-01-31] MEDS: morphine CARPU-JECT 2 MG/1 ML DISP.SYRIN IVPUSH PRN ×2 (05:55→09:48)
[2017-01-31 06:04] LABS: MCH 32.7 pg (25.7-33.7); MCHC 34.9 g/dl (32.0-36.0); MEAN CELL VOLUME 93.8 fl (80-96); MEAN PLT VOLUME 9.6 fl (7.5-11.1); PLATELET COUNT 211 K/MM3 (134-434); RDW 14.1 % (11.6-15.6); WHITE BLOOD COUNT 10.9 K/mm3 (4.0-10.0)
[2017-01-31 06:23] LABS: ALBUMIN 1.7 g/dl (3.4-5.0); ANION GAP 11 (8-16); BILIRUBIN,TOTAL 1.1 mg/dL (0.2-1.0); CO2 22 mmol/L (21-32); CREATININE 0.5 mg/dL (0.55-1.02); GLUCOSE,RANDOM 113 mg/dL (74-106); MAGNESIUM 1.9 mg/dL (1.8-2.4); PHOSPHOROUS 1.9 mg/dL (2.5-4.9); SGOT/AST 17 U/L (15-37); SGPT/ALT 19 U/L (12-78); TOT PROT 4.9 g/dl (6.4-8.2)
[2017-01-31 06:24] LABS: ALK PHOS 67 U/L (45-117)
[2017-01-31] MEDS ORDERED: POTASSIUM CHLORIDE TABS 20 MEQ TABLET.ER (FP) PO ONE ×3 (08:00→12:03)
[2017-01-31] MEDS ORDERED: MAGNESIUM OXIDE 400 MG TABLET (FP) PO ONE (09:15)
[2017-01-31] MEDS: MUPIROCIN 2% TOPICAL OINTMENT FOR DECOLONIZATION NS SCH ×2 (09:23→22:56)
[2017-01-31] MEDS ORDERED: PT OWN MED DRAWER 7, Y5N ONE ×2 (09:31→20:08)
--- NOTE | 2017-01-31 09:31 | PN ---
Progress Note, Physician History of Present Illness: Awake, alert C/O abdominal pain No N/V Afebrile WBC improved Cultures pending - Current Medication List Current Medications: Active Medications Atenolol (Tenormin -) 100 mg PO DAILY [facility] Chlorhexidine Gluconate (Hibiclens For Decolonization -) 1 applic TP HS [facility] Last Admin: 01/30/17 21:11 Dose: 1 applic Fentanyl (Sublimaze Injection -) 25 mcg IVPUSH [id number] PRN PRN Reason: PAIN Stop: 02/02/17 15:39 Last Admin: 01/30/17 15:54 Dose: 25 mcg Lactated Ringer's (Lactated Ringers Solution) 1,000 mls @ 75 mls/hr IV ASDIR [facility] Last Admin: 01/30/17 18:42 Dose: Not Given Piperacillin Sod/Tazobactam Sod (Zosyn 3.375gm Ivpb (Pre-Docked)) 50 mls @ 100 mls/hr IVPB Q8H-IV [place] PRN Reason: Protocol Last Admin: 01/31/17 09:07 Dose: 100 mls/hr Morphine Sulfate (Morphine Injection -) 2 mg IVPUSH Q4H PRN PRN Reason: PAIN Last Admin: 01/31/17 05:55 Dose: 2 mg Mupirocin (Bactroban Ointment (For Decolonization) -) 1 applic NS BID [facility] Stop: 02/04/17 21:59 Last Admin: 01/31/17 09:23 Dose: 1 applic Ondansetron HCl (Zofran Injection) 4 mg IVPB Q6H PRN PRN Reason: NAUSEA Pantoprazole Sodium (Protonix 40mg Ivpb (Pre-Docked)) [address] [facility] Last Admin: 01/30/17 21:11 Dose: 40 mg Potassium Chloride (K-Dur -) 40 meq PO ONCE ONE Stop: 01/31/17 12:01 Potassium Phos/Sodium Phos (Phos-Nak Packet -) 1 packet PO BID [facility] Stop: 01/31/17 22:01 Topiramate (Topamax -) 25 mg PO BID [facility] Last Admin: 01/30/17 21:53 Dose: 25 mg Valacyclovir HCl (Valtrex -) 500 mg PO DAILY [facility] - Objective Vital Signs: Vital Signs Temperature 98.9 F 01/31/17 06:00 Pulse Rate 92 H 01/31/17 06:00 Respiratory Rate 20 01/31/17 06:00 Blood Pressure 111/60 01/31/17 06:00 O2 Sat by Pulse Oximetry (%) 99 01/30/17 20:00 Constitutional: Yes: No Distress Eyes: Yes: Conjunctiva Clear Cardiovascular: Yes: Regular Rate and Rhythm, S1, S2 Respiratory: Yes: CTA Bilaterally Gastrointestinal: Yes: Normal Bowel Sounds, Abdomen, Obese, Tenderness (+ mild diffuse tenderness serosanguinous fluid in YURY drains) Edema: Yes Labs: CBC, BMP 01/31/17 05:10 01/31/17 05:10 INR, PTT INR 1.33 (0.82-1.09) H 01/30/17 06:30 Assessment/Plan Post op lap ellen POD #2- gangrenous gall bladder/ abscess Leukocytosis, possible biliary sepsis Continue empiric zosyn Await cultures
[2017-01-31] MEDS: TOPIRAMATE 25 MG TABLET (FP) PO SCH ×2 (09:32→22:57)
[2017-01-31] MEDS ORDERED: valACYclovir HCL 500 MG TABLET (FP) PO SCH (10:00)
[2017-01-31] MEDS ORDERED: NAPH,MB-DB/K PH,MBDB POWDER PACKET PO SCH ×2 (10:00→22:00)
[2017-01-31] MEDS ORDERED: ATENOLOL 50 MG TABLET (FP) PO SCH (10:00)
[2017-01-31] MEDS ORDERED: HYDROmorphone HCL CARPU-JECT 1 MG/1 ML DISP.SYRIN IVPUSH ONE ×2 (11:55→12:03)
[2017-01-31] MEDS ORDERED: HYDROmorphone HCL CARPU-JECT 1 MG/1 ML DISP.SYRIN IVPUSH PRN ×2 (11:55→12:03)
[2017-01-31] MEDS ORDERED: ACETAMINOPHEN 325 MG TABLET (FP) PO SCH (12:00)
--- NOTE | 2017-01-31 12:02 | PN ---
Physical Exam: SUBJECTIVE: Patient seen and examined in ICU. She is oob to chair complaining of pain to abdomen. She denies fever, chills, nausea, vomiting. OBJECTIVE: Vital Signs Period Temp Pulse Resp BP Sys/Baez Pulse Ox Last 24 Hr 97.9 F-98.9 F 90-100 16-23 105-128/58-83 95-100 PE Neuro: alert, awake, cn 2-12intact Heent: hard of hearing, b/l hear aids, post op R pupil dilation, L eye perrla Breast: R breast mastectomy Pulm: bi basilar crackles, + NC CV: s1 s2 irregular rhythm regular rate Abd: + Ashok drain with serosanguinous fluid, port sites CDI, abd mild distention Ext: warm, no le edema, R knee healed scar CBCD WBC 10.9 K/mm3 (4.0-10.0) H 01/31/17 05:10 RBC 4.31 M/mm3 (3.60-5.2) 01/31/17 05:10 Hgb 14.1 GM/dL (10.7-15.3) 01/31/17 05:10 Hct 40.5 % (32.4-45.2) 01/31/17 05:10 MCV 93.8 fl (80-96) 01/31/17 05:10 MCHC 34.9 g/dl (32.0-36.0) 01/31/17 05:10 RDW 14.1 % (11.6-15.6) 01/31/17 05:10 Plt Count 211 K/MM3 (134-434) 01/31/17 05:10 MPV 9.6 fl (7.5-11.1) 01/31/17 05:10 CMP Sodium 145 mmol/L (136-145) 01/31/17 05:10 Potassium 3.4 mmol/L (3.5-5.1) L 01/31/17 05:10 Chloride 112 mmol/L (98-107) H 01/31/17 05:10 Carbon Dioxide 22 mmol/L (21-32) 01/31/17 05:10 Anion Gap 11 (8-16) 01/31/17 05:10 BUN 17 mg/dL (7-18) 01/31/17 05:10 Creatinine 0.5 mg/dL (0.55-1.02) L 01/31/17 05:10 Creat Clearance w eGFR > 60 (>60) 01/31/17 05:10 Calcium 8.0 mg/dL (8.5-10.1) L 01/31/17 05:10 Total Bilirubin 1.1 mg/dL (0.2-1.0) H 01/31/17 05:10 AST 17 U/L (15-37) 01/31/17 05:10 ALT 19 U/L (12-78) 01/31/17 05:10 Alkaline Phosphatase 67 U/L (45-117) 01/31/17 05:10 Total Protein 4.9 g/dl (6.4-8.2) L 01/31/17 05:10 Albumin 1.7 g/dl (3.4-5.0) L 01/31/17 05:10 01/31/17 05:10 Phosphorus 1.9 L Magnesium 1.9 Active Medications Generic Name Dose Route Start Last Admin Trade Name Freq PRN Reason Stop Dose Admin Atenolol 100 mg 01/31/17 10:00 01/31/17 09:32 Tenormin - PO 100 mg DAILY [place] Administration Chlorhexidine Gluconate 1 applic 01/30/17 22:00 01/30/17 21:11 Hibiclens For Decolonization - TP 1 applic HS [place] Administration Furosemide 40 mg 02/01/17 10:00 Lasix - PO DAILY [place] Piperacillin Sod/Tazobactam Sod 50 mls @ 100 mls/hr 01/30/17 18:00 01/31/17 09: 07 Zosyn 3.375gm Ivpb (Pre-Docked) IVPB 100 mls/hr Q8H-IV [place] Administration Protocol Morphine Sulfate 2 mg 01/30/17 16:07 01/31/17 09:48 Morphine Injection - IVPUSH 2 mg Q4H PRN Administration PAIN Mupirocin 1 applic 01/30/17 22:00 01/31/17 09:23 Bactroban Ointment (For Decolonization) - NS 02/04/17 21:59 1 applic BID [place] Administration Ondansetron HCl 4 mg 01/30/17 16:07 Zofran Injection IVPB Q6H PRN NAUSEA Pantoprazole Sodium 40 mg 01/30/17 22:00 01/30/17 21:11 Protonix 40mg Ivpb (Pre-Docked) IVPB 40 mg HS [place] Administration Potassium Chloride 40 meq 01/31/17 12:00 K-Dur - PO 01/31/17 12:01 ONCE ONE Potassium Phos/Sodium Phos 1 packet 01/31/17 10:00 01/31/17 09:32 Phos-Nak Packet - PO 01/31/17 22:01 1 packet BID [place] Administration Topiramate 25 mg 01/30/17 22:00 01/31/17 09:32 Topamax - PO 25 mg BID [place] Administration Valacyclovir HCl 500 mg 01/31/17 10:00 01/31/17 09:32 Valtrex - PO 500 mg DAILY [place] Administration Assessment: 87 year old female with a history of GERD, CHF, breast CA s/p R breast mastectomy in 1980, HTN, migraines, and hiatal hernia, 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 While in the operating room today prior to administration of anesthesia, patient was noted to be in new onset atrial fibrillation with a ventricular rate of 80-100 and transferred to [place]. She was cleared for surgery and was done 01/30. Plan: 1. Acute cholecystitis - s/p lap cholecystectomy with gangrenous with abscess and purulent drainage - Incentive spirometry - Advance to full liquids - Continue Zosyn (day 4) 2. New onset A fib - Rate controlled - Continue atenolol - Metoprolol prn - Start AC once surgery clearance 3. Diastolic heart failure - ECHO above - Resume lasix 40mg daily tomorrow - Stop fluids 4. HTN - On Atenolol 5. Migraines - Cont Topamax 6. GERD/Hiatal hernia - Cont protonix 7. Hypophosphatemia - k phos packets x2 days 8. Recent dx of Herpetic ophthalmicus - Continue Valtrex, dose recently halved by outside optho - Sees Dr. Urena office, preformed cornea transplant ([facility]) 9. DVT PPX - SCD's, heparin gtt on hold for s/p surgery Visit type - Emergency Visit Emergency Visit: Yes ED Registration Date: 01/27/17 Care time: The patient presented to the Emergency Department on the above date and was hospitalized for further evaluation of their emergent condition. - New Patient This patient is new to me today: No - Critical Care Critical Care patient: No
[2017-01-31] MEDS ORDERED: ONDANSETRON 4 MG/2 ML VIAL IVPB PRN (12:03)
--- NOTE | 2017-01-31 12:07 | PN ---
Teaching Attending Note Name of Resident: Bryson Jaramillo ATTENDING PHYSICIAN STATEMENT I saw and evaluated the patient. I reviewed the resident's note and discussed the case with the resident. I agree with the resident's findings and plan as documented. SUBJECTIVE: Patient seen and examined in the ICU. Awake and alert. No CP or SOB. Breathing feels ok today. Intake & Output 01/28/17 01/29/17 01/30/17 01/31/17 23:59 23:59 23:59 23:59 Intake Total 7751 426 4976 790 Output Total 2650 650 Balance 1500 950 -1143 140 Weight 223 lb 4 oz Last Vital Signs Temp Pulse Resp BP Pulse Ox 98.9 F 92 H 20 111/60 99 01/31/17 06:00 01/31/17 06:00 01/31/17 06:00 01/31/17 06:00 01/30/17 20:00 Active Medications Atenolol (Tenormin -) 100 mg PO DAILY [facility] Last Admin: 01/31/17 09:32 Dose: 100 mg Chlorhexidine Gluconate (Hibiclens For Decolonization -) 1 applic TP HS [facility] Last Admin: 01/30/17 21:11 Dose: 1 applic Furosemide (Lasix -) 40 mg PO DAILY [facility] Hydromorphone HCl (Dilaudid Injection -) 0.5 mg IVPUSH ONCE ONE Stop: 01/31/17 11:56 Hydromorphone HCl (Dilaudid Injection -) 0.5 mg IVPUSH Q4H PRN PRN Reason: PAIN Piperacillin Sod/Tazobactam Sod (Zosyn 3.375gm Ivpb (Pre-Docked)) 50 mls @ 100 mls/hr IVPB Q8H-IV [place] PRN Reason: Protocol Last Admin: 01/31/17 09:07 Dose: 100 mls/hr Mupirocin (Bactroban Ointment (For Decolonization) -) 1 applic NS BID [facility] Stop: 02/04/17 21:59 Last Admin: 01/31/17 09:23 Dose: 1 applic Ondansetron HCl (Zofran Injection) 4 mg IVPB Q6H PRN PRN Reason: NAUSEA Pantoprazole Sodium (Protonix 40mg Ivpb (Pre-Docked)) 40 mg IVPB [facility] Last Admin: 01/30/17 21:11 Dose: 40 mg Potassium Phos/Sodium Phos (Phos-Nak Packet -) 1 packet PO BID [facility] Stop: 01/31/17 22:01 Last Admin: 01/31/17 09:32 Dose: 1 packet Topiramate (Topamax -) 25 mg PO BID [facility] Last Admin: 01/31/17 09:32 Dose: 25 mg Valacyclovir HCl (Valtrex -) 500 mg PO DAILY [facility] Last Admin: 01/31/17 09:32 Dose: 500 mg GENERAL: Awake and alert, NAD HEAD: Normal with no signs of trauma. EYES: post surgical right eye EARS, NOSE, THROAT: dry mucous membranes. NECK: Normal range of motion LUNGS: Scattered rhonchi, no wheeze HEART: s1s2 normal, irregularly irregular. ABDOMEN: Soft, mild tender, not distended, bowel sounds -, drain in situ . UPPER EXTREMITIES: 2+ pulses, warm, well-perfused. No cyanosis. LOWER EXTREMITIES: No calf tenderness. No peripheral edema. SKIN: Warm, dry Laboratory Results - last 24 hr 01/30/17 01/30/17 01/31/17 21:30 21:49 05:10 WBC 10.9 H RBC 4.31 Hgb 14.1 Hct 40.5 MCV 93.8 MCHC 34.9 RDW 14.1 Plt Count 211 MPV 9.6 Neutrophils % Y Lymphocytes % Y Sodium 144 Potassium 3.5 Chloride 112 H Carbon Dioxide 19 L Anion Gap 13 BUN 19 H Creatinine 0.5 L Creat Clearance w eGFR POC Glucometer 141.27686 Random Glucose 118 H Calcium 7.7 L Phosphorus 2.0 L Magnesium 2.0 Total Bilirubin AST ALT Alkaline Phosphatase Total Protein Albumin 01/31/17 05:10 WBC RBC Hgb Hct MCV MCHC RDW Plt Count MPV Neutrophils % Lymphocytes % Sodium 145 Potassium 3.4 L Chloride 112 H Carbon Dioxide 22 Anion Gap 11 BUN 17 Creatinine 0.5 L Creat Clearance w eGFR > 60 POC Glucometer Random Glucose 113 H Calcium 8.0 L Phosphorus 1.9 L Magnesium 1.9 Total Bilirubin 1.1 H AST 17 ALT 19 Alkaline Phosphatase 67 Total Protein 4.9 L Albumin 1.7 L ASSESSMENT/PLAN: S/p lap ellen for acute cholecystitis S/P Lap Cholecystectomy New onset AFIb Probable Obstructive Sleep Apnea : typical clinical history and consistent symptoms ABX per ID Monitor drain output Pain control Incentive Spirometry PPI Replete lytes AC Cardiac Telemetry monitoring Critical care time spent in reviewing chart, evaluating pt and formulating plan [address] Correa
--- NOTE | 2017-01-31 13:44 | PN ---
Physical Exam: SUBJECTIVE: Patient seen and examined sitting comfartably in bed complains of pain abdomen drain serosensigeous discharge OBJECTIVE: Vital Signs Period Temp Pulse Resp BP Sys/Baez Pulse Ox Last 24 Hr 97.9 F-98.9 F 90-100 16-23 105-128/58-83 95-100 GENERAL: sleepy but arrousable, hard of hearing, doesn't have her hearing aid with her HEAD: Normal with no signs of trauma. EYES: right dilated ( h/o corneal surgery). left 1 to 1.5 mm reactive to light EARS, NOSE, THROAT: Ears normal, nares patent, oropharynx clear without exudates. NECK: Normal range of motion, LUNGS: Breath sounds equal, clear to auscultation bilaterally decrease at base, no wheez, HEART: s1s2 normal, irregularly irregular. ABDOMEN: Soft, mild tender, not distended, drain in situ . UPPER EXTREMITIES: 2+ pulses, warm, well-perfused. No cyanosis. LOWER EXTREMITIES: No calf tenderness. No peripheral edema. SKIN: Warm, dry, Laboratory Results - last 24 hr 01/30/17 01/30/17 01/31/17 21:30 21:49 05:10 WBC 10.9 H RBC 4.31 Hgb 14.1 Hct 40.5 MCV 93.8 MCHC 34.9 RDW 14.1 Plt Count 211 MPV 9.6 Neutrophils % Y Lymphocytes % Y Sodium 144 Potassium 3.5 Chloride 112 H Carbon Dioxide 19 L Anion Gap 13 BUN 19 H Creatinine 0.5 L Creat Clearance w eGFR POC Glucometer 141.32476 Random Glucose 118 H Calcium 7.7 L Phosphorus 2.0 L Magnesium 2.0 Total Bilirubin AST ALT Alkaline Phosphatase Total Protein Albumin 01/31/17 05:10 WBC RBC Hgb Hct MCV MCHC RDW Plt Count MPV Neutrophils % Lymphocytes % Sodium 145 Potassium 3.4 L Chloride 112 H Carbon Dioxide 22 Anion Gap 11 BUN 17 Creatinine 0.5 L Creat Clearance w eGFR > 60 POC Glucometer Random Glucose 113 H Calcium 8.0 L Phosphorus 1.9 L Magnesium 1.9 Total Bilirubin 1.1 H AST 17 ALT 19 Alkaline Phosphatase 67 Total Protein 4.9 L Albumin 1.7 L Active Medications Generic Name Dose Route Start Last Admin Trade Name Freq PRN Reason Stop Dose Admin Acetaminophen 650 mg 01/31/17 16:00 Tylenol - PO Q4H [facility] Atenolol 100 mg 02/01/17 10:00 Tenormin - PO DAILY [facility] Chlorhexidine Gluconate 1 applic 01/31/17 22:00 Hibiclens For Decolonization - TP HS [facility] Furosemide 40 mg 02/01/17 10:00 Lasix - PO DAILY [facility] Hydromorphone HCl 0.5 mg 01/31/17 12:03 Dilaudid Injection - IVPUSH Q4H PRN PAIN Piperacillin Sod/Tazobactam Sod 50 mls @ 100 mls/hr 01/31/17 18:00 Zosyn 3.375gm Ivpb (Pre-Docked) IVPB Q8H-IV [facility] Protocol Mupirocin 1 applic 01/31/17 22:00 Bactroban Ointment (For Decolonization) - NS 02/04/17 21:59 BID [facility] Ondansetron HCl 4 mg 01/31/17 12:03 Zofran Injection IVPB Q6H PRN NAUSEA Pantoprazole Sodium 40 mg 01/31/17 22:00 Protonix 40mg Ivpb (Pre-Docked) IVPB HS [facility] Potassium Phos/Sodium Phos 1 packet 01/31/17 22:00 Phos-Nak Packet - PO 01/31/17 22:01 BID [facility] Topiramate 25 mg 01/31/17 22:00 Topamax - PO BID [facility] Valacyclovir HCl 500 mg 02/01/17 10:00 Valtrex - PO DAILY [facility] ASSESSMENT/PLAN: S/p lap ellen for acute cholecystitis Cont zosyn, day 4 monitor vitals monitor intake/ output monitor drain output pain controle on morph iv and po acetaminophen zofran for nausea or vomiting continue protonix incentive spirometry new onset afib on rate control with atenolol can give metoprolol Iv prn start on ac once cleared from surgery. Pre op patient was on heparin drip. Patient need residential ac, cardiology on case cardiac monitoring hypertension - continue atenolol - b/p monitoring h/o chf started on home does of lasix 40mg hold iv fluid, accepting orally migraines cont home topamax GERD/Hiatal hernia cont protonix DVT PPX scd b/l FEN fluid : hold iv fluid electrolyte;hypokalemia, hyophosphatemia. kcl nutrition : on soft diet Dispo: pt currently requires inpatient management of her emergent condition. Visit type - Emergency Visit Emergency Visit: Yes ED Registration Date: 01/27/17 Care time: The patient presented to the Emergency Department on the above date and was hospitalized for further evaluation of their emergent condition. - New Patient This patient is new to me today: No - Critical Care Critical Care patient: Yes Total Critical Care Time (in minutes): 45 Critical Care Statement: The care of this patient involved high complexity decision making to prevent further life threatening deterioration of the patient 's condition and/or to evalute & treat vital organ system(s) failure or risk of failure.
[2017-01-31] MEDS ORDERED: PATIENT'S OWN MEDICATION (NON-FORMULARY) (Alendronate Na [Fosamax (Weekly)] 70 MG) PO SCH (14:15)
[2017-01-31] MEDS ORDERED: OXYCODONE/APAP 5/325MG COMBO TABLET PO PRN ×2 (14:20→14:21)
--- NOTE | 2017-01-31 14:24 | PN ---
Progress Note, Physician Chief Complaint: jerardo-incisional pain. History of Present Illness: feels a little better postop. some incisional pain. awaiting floor bed. no hemodynamic instability overnight. off IVF. on daily lasix. - Current Medication List Current Medications: Active Medications Acetaminophen (Tylenol -) 650 mg PO Q4H [facility] Atenolol (Tenormin -) 100 mg PO DAILY [facility] Chlorhexidine Gluconate (Hibiclens For Decolonization -) 1 applic TP HS [place] Furosemide (Lasix -) 40 mg PO DAILY [facility] Piperacillin Sod/Tazobactam Sod (Zosyn 3.375gm Ivpb (Pre-Docked)) 50 mls @ 100 mls/hr IVPB Q8H-IV [place] PRN Reason: Protocol Mupirocin (Bactroban Ointment (For Decolonization) -) 1 applic NS BID [facility] Stop: 02/04/17 21:59 Non-Formulary Medication (Loteprednol Etabonate [Alrex]) 1 drop OS DAILY [facility] Non-Formulary Medication (Alendronate Na [Fosamax (Weekly)]) 70 mg PO Q7D [facility] Ondansetron HCl (Zofran Injection) 4 mg IVPB Q6H PRN PRN Reason: NAUSEA Oxycodone/Acetaminophen (Percocet 5/325 -) 2 combo PO Q4H PRN PRN Reason: PAIN LEVEL 6-10 Oxycodone/Acetaminophen (Percocet 5/325 -) 1 combo PO Q4H PRN PRN Reason: PAIN LEVEL 1-5 Pantoprazole Sodium (Protonix 40mg Ivpb (Pre-Docked)) 40 mg IVPB HS [facility] Potassium Phos/Sodium Phos (Phos-Nak Packet -) 1 packet PO BID [facility] Stop: 01/31/17 22:01 Topiramate (Topamax -) 25 mg PO BID [facility] Valacyclovir HCl (Valtrex -) 500 mg PO DAILY [facility] - Objective Vital Signs: Vital Signs Temperature 98.9 F 01/31/17 06:00 Pulse Rate 92 H 01/31/17 06:00 Respiratory Rate 20 01/31/17 06:00 Blood Pressure 111/60 01/31/17 06:00 O2 Sat by Pulse Oximetry (%) 99 01/30/17 20:00 Constitutional: Yes: No Distress, Calm Gastrointestinal: Yes: Soft, Other (drain with serosang fluid.). No: Distention , Tenderness Labs: CBC, BMP 01/31/17 05:10 01/31/17 05:10 INR, PTT INR 1.33 (0.82-1.09) H 01/30/17 06:30 Problem List - Problems (1) Acute cholecystitis Assessment/Plan: agree with floor transfer cont hliv change to oral pain medication abx as per ID can consider D/c abx if okay with ID needs to ambulate but i suspect may need to go to rehab would prefer anticoagulation slowly starting 02/02 (case was very hard and alot of inflammatory bleeding) Code(s): K81.0 - ACUTE CHOLECYSTITIS
[2017-01-31] MEDS ORDERED: ACETAMINOPHEN 325 MG TABLET (FP) PO PRN ×2 (14:52→14:56)
--- NOTE | 2017-01-31 15:08 | PN ---
Progress Note (short form) - Note Progress Note: cc: pre-op clearance s: no cp sob palps dizzy. + pain at right flank and with inspiration o: Current Medications Acetaminophen (Tylenol -) 650 mg PO Q4H [place] Acetaminophen (Tylenol -) 325 mg PO Q4H PRN PRN Reason: PAIN Stop: 02/03/17 14:51 Acetaminophen (Tylenol -) 650 mg PO Q4H PRN PRN Reason: PAIN Stop: 02/03/17 14:55 Atenolol (Tenormin -) 100 mg PO DAILY [place] Chlorhexidine Gluconate (Hibiclens For Decolonization -) 1 applic TP HS [place] Furosemide (Lasix -) 40 mg PO DAILY [place] Piperacillin Sod/Tazobactam Sod (Zosyn 3.375gm Ivpb (Pre-Docked)) 50 mls @ 100 mls/hr IVPB Q8H-IV [place] PRN Reason: Protocol Mupirocin (Bactroban Ointment (For Decolonization) -) 1 applic NS BID [place] Stop: 02/04/17 21:59 Non-Formulary Medication (Loteprednol Etabonate [Alrex]) 1 drop OS DAILY [place] Ondansetron HCl (Zofran Injection) 4 mg IVPB Q6H PRN PRN Reason: NAUSEA Oxycodone HCl (Roxicodone -) 5 mg PO Q4H PRN PRN Reason: PAIN Oxycodone HCl (Roxicodone -) 10 mg PO Q4H PRN PRN Reason: PAIN Pantoprazole Sodium (Protonix 40mg Ivpb (Pre-Docked)) 40 mg IVPB HS [facility] Potassium Phos/Sodium Phos (Phos-Nak Packet -) 1 packet PO BID [place] Stop: 01/31/17 22:01 Topiramate (Topamax -) 25 mg PO BID [place] Valacyclovir HCl (Valtrex -) 500 mg PO DAILY [facility] Vital Signs Period Temp Pulse Resp BP Sys/Baez Pulse Ox Last 24 Hr 97.9 F-98.9 F 90-100 16-23 105-128/58-83 95-100 Intake & Output 01/29/17 01/30/17 01/31/17 02/01/17 07:59 07:59 07:59 07:59 Intake Total 8247 409 6029 Output Total 3300 Balance 1450 282 -1285 Weight 223 lb 4 oz NAD, calm jvd flat, neck supple bibasilar crackles, nl effort irregularly, irregular nl s1, s2 no mrg + bs soft nd, + distension ext with trace le edema, no cyanosis, clubbing aaox3 no jaundice, diaphoresis CBC, BMP 01/31/17 05:10 01/31/17 05:10 EKG: afib, vr 95 bp. poor r wave progression. no ischemic changes. tele: rate controlled afib 01/29 echo: mild conc lvh. nl lv/rv size/fn. 1+ lae, 1+ tr, 1+ phtn cxr: large hiatal hernia. possible small right effusion a/p: 87-year-old female with a significant past medical history of HTN, diastolic heart failure, migraine (? tia), GERD and hiatal hernia, who presents with acute cholecystitiis, surgery now delayed due to acute onset afib. Pre-op clearance - RCRI of 1-2, (chf, ?TIA) with advanced age and poor functional status. Jerardo- operative cardic risk was estimated at intermediate. s/p surgery. Atrial fibrillation is rate controlled. bp well controlled - incentive spirometry. Afib - Per surgery concern for post-op bleeding. Would resume heparin drip once ok per surgery and if no bleeding, transition to noac. - rate controlled with atenolol, can give IV metoprolol if needed jerardo- operatively - pain control - lyte repletion dcHF - home po lasix resumed - lungs with likely atelectasis, but would r/o edema with cxr in am. HTN - controlled on current regimen
[2017-01-31] MEDS: ACETAMINOPHEN 325 MG TABLET (FP) PO SCH ×2 (17:51→23:02)
[2017-01-31] MEDS: oxyCODONE HCL 5 MG TABLET PO PRN ×2 (17:52→23:01)
[2017-01-31] MEDS: CHLORHEXIDINE GLUCONATE 4% CLEANSER FOR DECOLONIZATION TP SCH (22:56)
[2017-01-31] MEDS: PANTOPRAZOLE SODIUM 40 MG/100 ML PRE-DOCKED IVPB SCH (22:57)
[2017-02-01] MEDS: PIPERACILLIN/TAZOB 3.375 GM 50 ML IVPB SCH ×3 (02:54→17:05)
[2017-02-01 08:07] LABS: MEAN CELL VOLUME 94.2 fl (80-96); MEAN PLT VOLUME 8.9 fl (7.5-11.1); PLATELET COUNT 196 K/MM3 (134-434); RDW 14.4 % (11.6-15.6); WHITE BLOOD COUNT 8.6 K/mm3 (4.0-10.0)
--- NOTE | 2017-02-01 08:28 | PN ---
Progress Note, Physician Chief Complaint: afib History of Present Illness: "a little sob"--since in hospital no cp, palpit, leg swelling - Current Medication List Current Medications: Active Medications Acetaminophen (Tylenol -) 650 mg PO Q4H REPLACED BY [facility] Last Admin: 01/31/17 23:02 Dose: 650 mg Acetaminophen (Tylenol -) 325 mg PO Q4H PRN PRN Reason: PAIN Stop: 02/03/17 14:51 Acetaminophen (Tylenol -) 650 mg PO Q4H PRN PRN Reason: PAIN Stop: 02/03/17 14:55 Atenolol (Tenormin -) 100 mg PO DAILY [facility] Chlorhexidine Gluconate (Hibiclens For Decolonization -) 1 applic TP HS [facility] Last Admin: 01/31/17 22:56 Dose: Not Given Furosemide (Lasix -) 40 mg PO DAILY [facility] Piperacillin Sod/Tazobactam Sod (Zosyn 3.375gm Ivpb (Pre-Docked)) 50 mls @ 100 mls/hr IVPB Q8H-IV [place] PRN Reason: Protocol Last Admin: 02/01/17 02:54 Dose: 100 mls/hr Mupirocin (Bactroban Ointment (For Decolonization) -) 1 applic NS BID [facility] Stop: 02/04/17 21:59 Last Admin: 01/31/17 22:56 Dose: Not Given Non-Formulary Medication (Loteprednol Etabonate [Alrex]) 1 drop OD DAILY [facility] Ondansetron HCl (Zofran Injection) 4 mg IVPB Q6H PRN PRN Reason: NAUSEA Oxycodone HCl (Roxicodone -) 5 mg PO Q4H PRN PRN Reason: PAIN Oxycodone HCl (Roxicodone -) 10 mg PO Q4H PRN PRN Reason: PAIN Last Admin: 01/31/17 23:01 Dose: 10 mg Pantoprazole Sodium (Protonix 40mg Ivpb (Pre-Docked)) 40 mg IVPB HS [facility]PL[facility] BY [facility] Last Admin: 01/31/17 22:57 Dose: 40 mg Topiramate (Topamax -) 25 mg PO BID [facility] Last Admin: 01/31/17 22:57 Dose: 25 mg Valacyclovir HCl (Valtrex -) 500 mg PO DAILY [facility] - Objective Vital Signs: Vital Signs Temperature 97 F L 02/01/17 05:46 Pulse Rate 95 H 02/01/17 05:46 Respiratory Rate 20 02/01/17 05:46 Blood Pressure 115/65 02/01/17 05:46 O2 Sat by Pulse Oximetry (%) 99 01/31/17 21:00 Constitutional: Yes: Well Nourished, No Distress, Calm Cardiovascular: Yes: Pulse Irregular, S1, S2. No: JVD, Gallop Respiratory: Yes: Regular, CTA Bilaterally. No: Accessory Muscle Use, Kuss[place]ul , Wheezes Extremities: No: Cold Edema: No Neurological: Yes: Alert, Oriented Psychiatric: No: Agitated Labs: CBC, BMP 02/01/17 06:00 INR, PTT INR 1.33 (0.82-1.09) H 01/30/17 06:30 - ....Imaging Chest X-ray: Report Reviewed, Image Reviewed EKG: Other (tele: AF, good HRs) Assessment/Plan EKG: afib, vr 95 bp. poor r wave progression. no ischemic changes. tele: rate controlled afib Echo 01/27: mild conc lvh. nl lv/rv size/fn. 1+ lae, 1+ tr, 1+ phtn a/p: 87-year-old female with a significant past medical history of HTN, diastolic heart failure, migraine (? tia), GERD and hiatal hernia, who presents with acute cholecystitiis, surgery now delayed due to acute onset afib. Afib - per dr reardon, prefer anticoagulation slowly, not to start prior to 02/02 (case was very hard and alot of inflammatory bleeding) - plan to resume heparin drip at that time (reversibility) and once he feels she is out of the tirado with no bleeding, will transition to NOAC agent (e.g. eliquis) - rate controlled with atenolol, can give IV metoprolol if needed jerardo- operatively dcHF - on lasix 40 po qd - c/o sob with worsening cxr: bilat lower lobe infiltrates vs edema on my review , ? layering effusions as well - start lasix 40 iv daily today acute cholecystitis s/p cholecystectomy: - surgery following HTN - controlled on current regimen
[2017-02-01 08:45] LABS: CALCIUM 8.1 mg/dL (8.5-10.1); COCKROFT - GAULT 107.372; CREATININE 0.6 mg/dL (0.55-1.02)
[2017-02-01 08:52] LABS: PLATELET ESTIMATE ADEQUATE (NORMAL)
[2017-02-01] MEDS: ACETAMINOPHEN 325 MG TABLET (FP) PO SCH ×4 (09:22→20:38)
[2017-02-01] MEDS: ATENOLOL 50 MG TABLET (FP) PO SCH (09:22)
[2017-02-01] MEDS: valACYclovir HCL 500 MG TABLET (FP) PO SCH (09:23)
[2017-02-01] MEDS: TOPIRAMATE 25 MG TABLET (FP) PO SCH ×2 (09:23→21:17)
[2017-02-01] MEDS: LOTEPREDNOL ETABONATE OD SCH (09:26)
[2017-02-01] MEDS: MUPIROCIN 2% TOPICAL OINTMENT FOR DECOLONIZATION NS SCH ×2 (09:26→21:10)
[2017-02-01] MEDS ORDERED: LOTEPREDNOL ETABONATE OS SCH (10:00)
[2017-02-01] MEDS ORDERED: FUROSEMIDE 40 MG TABLET (FP) PO SCH ×2 (10:00)
[2017-02-01] MEDS: oxyCODONE HCL 5 MG TABLET PO PRN ×2 (11:13→14:42)
[2017-02-01] MEDS: FUROSEMIDE 40 MG/4 ML INJECTABLE VIAL IVPUSH SCH (11:14)
--- NOTE | 2017-02-01 11:40 | PN ---
Progress Note (short form) - Note Progress Note: Patient hard of hearing Subjective: The patient was seen and examined at the bedside, she had reported not passing gas since surgery, however during exam patient began to pass gas. She has complaints of mild abdominal pain at lap sites. Current Medications Generic Name Dose Route Start Last Admin Trade Name Freq PRN Reason Stop Dose Admin Acetaminophen 650 mg 01/31/17 16:00 02/01/17 09:22 Tylenol - PO 650 mg Q4H [place] Administration Acetaminophen 325 mg 01/31/17 14:52 Tylenol - PO 02/03/17 14:51 Q4H PRN PAIN Acetaminophen 650 mg 01/31/17 14:56 Tylenol - PO 02/03/17 14:55 Q4H PRN [facility] Atenolol 100 mg 02/01/17 10:00 02/01/17 09:22 Tenormin - PO 100 mg DAILY [place] Administration Chlorhexidine Gluconate 1 applic 01/31/17 22:00 01/31/17 22:56 Hibiclens For Decolonization - TP Not Given HS [place] Furosemide 40 mg 02/01/17 11:00 02/01/17 11:14 Lasix Injection - IVPUSH 40 mg DAILY [place] Administration Piperacillin Sod/Tazobactam Sod 50 mls @ 100 mls/hr 01/31/17 18:00 02/01/17 09: 21 Zosyn 3.375gm Ivpb (Pre-Docked) IVPB 100 mls/hr Q8H-IV [place] Administration Protocol Mupirocin 1 applic 01/31/17 22:00 02/01/17 09:26 Bactroban Ointment (For Decolonization) - NS 02/04/17 21:59 Not Given BID [place] Non-Formulary Medication 1 drop 02/01/17 10:00 02/01/17 09:26 Loteprednol Etabonate [Alrex] OD 1 drop DAILY [place] Administration Ondansetron HCl 4 mg 01/31/17 12:03 Zofran Injection IVPB Q6H PRN NAUSEA Oxycodone HCl 5 mg 01/31/17 14:52 Roxicodone - PO Q4H PRN [facility] Oxycodone HCl 10 mg 01/31/17 14:56 02/01/17 11:13 Roxicodone - PO 10 mg Q4H PRN Administration PAIN Pantoprazole Sodium 40 mg 01/31/17 22:00 01/31/17 22:57 Protonix 40mg Ivpb (Pre-Docked) IVPB 40 mg HS [place] Administration Topiramate 25 mg 01/31/17 22:00 02/01/17 09:23 Topamax - PO 25 mg BID [place] Administration Valacyclovir HCl 500 mg 02/01/17 10:00 02/01/17 09:23 Valtrex - PO 500 mg DAILY [place] Administration Objective: Vital Signs Period Temp Pulse Resp BP Sys/Baez Pulse Ox Last 24 Hr 97 F-98.4 F 92-103 20-24 105-138/65-98 99 Physical Exam: General: NAD, A&Ox3, hard of hearing b/l Lungs: Decreased breath sounds bilaterally Heart: Irregular, S1S2 Abd: Right abdominal YURY with serosanguenous drainage. Soft, mild diffuse left abdominal tenderness around lap sites. Lap sites with surgical glue, c/d/i Ext: Warm, well-perfused. 2+ DP/PT bilaterally Neuro: CN 2-12 intact CBCD WBC 8.6 K/mm3 (4.0-10.0) 02/01/17 06:00 RBC 4.27 M/mm3 (3.60-5.2) 02/01/17 06:00 Hgb 13.7 GM/dL (10.7-15.3) 02/01/17 06:00 Hct 40.2 % (32.4-45.2) 02/01/17 06:00 MCV 94.2 fl (80-96) 02/01/17 06:00 MCHC 34.0 g/dl (32.0-36.0) 02/01/17 06:00 RDW 14.4 % (11.6-15.6) 02/01/17 06:00 Plt Count 196 K/MM3 (134-434) 02/01/17 06:00 MPV 8.9 fl (7.5-11.1) 02/01/17 06:00 CMP Sodium 142 mmol/L (136-145) 02/01/17 06:00 Potassium 4.1 mmol/L (3.5-5.1) D 02/01/17 06:00 Chloride 105 mmol/L (98-107) 02/01/17 06:00 Carbon Dioxide 26 mmol/L (21-32) 02/01/17 06:00 Anion Gap 11 (8-16) 02/01/17 06:00 BUN 16 mg/dL (7-18) 02/01/17 06:00 Creatinine 0.6 mg/dL (0.55-1.02) 02/01/17 06:00 Creat Clearance w eGFR > 60 (>60) 01/31/17 05:10 Random Glucose 115 mg/dL (74-106) H 02/01/17 06:00 Calcium 8.1 mg/dL (8.5-10.1) L 02/01/17 06:00 Total Bilirubin 1.1 mg/dL (0.2-1.0) H 01/31/17 05:10 AST 17 U/L (15-37) 01/31/17 05:10 ALT 19 U/L (12-78) 01/31/17 05:10 Alkaline Phosphatase 67 U/L (45-117) 01/31/17 05:10 Total Protein 4.9 g/dl (6.4-8.2) L 01/31/17 05:10 Albumin 1.7 g/dl (3.4-5.0) L 01/31/17 05:10 CARDIAC ENZYMES Creatine Kinase 26 IU/L (26-140) 01/29/17 12:47 Troponin I 0.03 ng/ml (0.03-0.50) 01/29/17 12:47 Microbiology 01/27/17 15:54 Blood - Peripheral Venous Blood Culture - Preliminary NO GROWTH OBTAINED AFTER 96 HOURS, INCUBATION TO CONTINUE FOR 1 DAYS. 01/27/17 15:54 Blood - Peripheral Venous Blood Culture - Preliminary NO GROWTH OBTAINED AFTER 96 HOURS, INCUBATION TO CONTINUE FOR 1 DAYS. 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 Lap ellen performed on 01/30. Plan: 1) GI: Acute cholecystitis, possible biliary sepsis - S/p lap ellen on 01/30: gangrenous cholecystitis with abscess and copious purulent drainage - Continue Zosyn (01/27- ) - Advance diet per surgery - Appreciate surgery consult GERD - Continue Protonix 2) ID: - Chest x-ray with bibasilar atelectatic changes with possible infiltrates and some right pleural fluid - Continue Zosyn as above - Appreciate ID consult Recent herpetic ophthalmicus - Continue Valtrex - F/u ophtho outpatient 3) Cardiology: New onset A.fib - Rate control on Atenolol - Per surgery, can restart Heparin gtt on 02/02 then transition to NOAC once cleared by surgery - Appreciate cardiology consult Acute on chronic diastolic heart failure - Worsening chest x-ray - Start Lasix 40mg IVP daily HTN - As above 4) F/E/N: - Monitor electrolytes - F/u phos level - Soft diet 5) Prophylaxis: - SCDs bilaterally - Will start heparin gtt 02/02 - PT evaluation 6) Dispo: - Requires continued inpatient care CODE STATUS: FULL CODE Visit type - Emergency Visit Emergency Visit: Yes ED Registration Date: 01/27/17 Care time: The patient presented to the Emergency Department on the above date and was hospitalized for further evaluation of their emergent condition. - New Patient This patient is new to me today: Yes Date on this admission: 02/01/17 - Critical Care Critical Care patient: No
--- NOTE | 2017-02-01 16:37 | PN ---
Progress Note (short form) - Note Progress Note: doing well alert pod #3 lap choly with gangrenous gallbladder and abscesss Vital Signs Period Temp Pulse Resp BP Sys/Baez Pulse Ox Last 24 Hr 97 F-98.4 F 95-103 20-24 107-138/65-98 98-99 cor-rrr lungs decresed bs at bases abd soft,nt ext no edema CBC, BMP 02/01/17 06:00 02/01/17 06:00 Microbiology 01/27/17 15:54 Blood - Peripheral Venous Blood Culture - Final NO GROWTH AFTER 5 DAYS INCUBATION 01/27/17 15:54 Blood - Peripheral Venous Blood Culture - Final NO GROWTH AFTER 5 DAYS INCUBATION a/p doing well surgery note reviewed can d/c antibiotics in am if afebrile and wbc remains normal encourage OOB and incentive spirometry
[2017-02-01] MEDS: CHLORHEXIDINE GLUCONATE 4% CLEANSER FOR DECOLONIZATION TP SCH (21:10)
[2017-02-01] MEDS: PANTOPRAZOLE SODIUM 40 MG/100 ML PRE-DOCKED IVPB SCH (21:17)
[2017-02-02] MEDS: PIPERACILLIN/TAZOB 3.375 GM 50 ML IVPB SCH ×3 (01:57→17:42)
[2017-02-02] MEDS: ACETAMINOPHEN 325 MG TABLET (FP) PO SCH ×6 (04:12→20:00)
[2017-02-02] MEDS ORDERED: PATIENT'S OWN MEDICATION (NON-FORMULARY) (Alendronate Na [Fosamax (Weekly)] 70 MG) PO SCH (07:00)
--- NOTE | 2017-02-02 07:17 | PN ---
Progress Note, Physician Chief Complaint: chf History of Present Illness: same mild sob as yest no palpit, cp no wheezing - Current Medication List Current Medications: Active Medications Acetaminophen (Tylenol -) 650 mg PO Q4H [facility] Last Admin: 02/02/17 04:12 Dose: 650 mg Acetaminophen (Tylenol -) 325 mg PO Q4H PRN PRN Reason: PAIN Stop: 02/03/17 14:51 Last Admin: 02/01/17 14:43 Dose: 325 mg Acetaminophen (Tylenol -) 650 mg PO Q4H PRN PRN Reason: PAIN Stop: 02/03/17 14:55 Atenolol (Tenormin -) 100 mg PO DAILY [facility] Last Admin: 02/01/17 09:22 Dose: 100 mg Chlorhexidine Gluconate (Hibiclens For Decolonization -) 1 applic TP HS [facility] Last Admin: 02/01/17 21:10 Dose: Not Given Furosemide (Lasix Injection -) 40 mg IVPUSH DAILY [facility] Last Admin: 02/01/17 11:14 Dose: 40 mg Piperacillin Sod/Tazobactam Sod (Zosyn 3.375gm Ivpb (Pre-Docked)) 50 mls @ 100 mls/hr IVPB Q8H-IV [place] PRN Reason: Protocol Last Admin: 02/02/17 01:57 Dose: 100 mls/hr Mupirocin (Bactroban Ointment (For Decolonization) -) 1 applic NS BID [facility] Stop: 02/04/17 21:59 Last Admin: 02/01/17 21:10 Dose: Not Given Non-Formulary Medication (Loteprednol Etabonate [Alrex]) 1 drop OD DAILY [facility] Last Admin: 02/01/17 09:26 Dose: 1 drop Ondansetron HCl (Zofran Injection) 4 mg IVPB Q6H PRN PRN Reason: NAUSEA Oxycodone HCl (Roxicodone -) 5 mg PO Q4H PRN PRN Reason: PAIN Oxycodone HCl (Roxicodone -) 10 mg PO Q4H PRN PRN Reason: PAIN Last Admin: 02/01/17 14:42 Dose: 10 mg Pantoprazole Sodium (Protonix 40mg Ivpb (Pre-Docked)) 40 mg IVPB [facility] Last Admin: 04/22/17 21:17 Dose: 40 mg Topiramate (Topamax -) 25 mg PO BID [facility] Last Admin: 02/01/17: Dose: 25 mg Valacyclovir HCl (Valtrex -) 500 mg PO DAILY [facility] Last Admin: 02/01/17 09:23 Dose: 500 mg - Objective Vital Signs: Vital Signs Temperature 97.8 F 02/02/17 06:00 Pulse Rate 81 02/02/17 06:00 Respiratory Rate 17 02/02/17 06:00 Blood Pressure 127/88 02/02/17 06:00 O2 Sat by Pulse Oximetry (%) 100 02/02/17 06:00 Constitutional: Yes: Well Nourished, No Distress, Calm Cardiovascular: Yes: Pulse Irregular, S1, S2. No: Gallop Respiratory: Yes: Regular, Rales (L base). No: Accessory Muscle Use, Wheezes Extremities: No: Cold Edema: No (SCDs) Neurological: Yes: Alert, Oriented Labs: CBC, BMP 02/01/17 06:00 02/01/17 06:00 INR, PTT INR 1.33 (0.82-1.09) H 01/30/17 06:30 - ....Imaging EKG: Other (tele: afib, good HRs) Assessment/Plan EKG: afib, vr 95 bp. poor r wave progression. no ischemic changes. tele: rate controlled afib Echo 01/27: mild conc lvh. nl lv/rv size/fn. 1+ lae, 1+ tr, 1+ phtn a/p: 87-year-old female with a significant past medical history of HTN, diastolic heart failure, migraine (? tia), GERD and hiatal hernia, who presents with acute cholecystitiis, surgery now delayed due to acute onset afib. new Afib - per dr reardon, prefer anticoagulation slowly, not to start prior to 02/02 (case was very hard and alot of inflammatory bleeding) - H/H remains stable--will resume heparin drip today (no bolus)-- once dr reardon feels pt is out of the tirado with no bleeding, will transition to NOAC agent ( e.g. eliquis) - rate controlled with atenolol, cont same dcHF - on lasix 40 po qd previously - 02/01: c/o sob with worsening cxr: bilat lower lobe infiltrates vs edema on my review, ? layering effusions as well--lasix 40 iv qd started - 02/02: sob same today, remains mild--same lasix, rpt cxr in am acute cholecystitis s/p cholecystectomy: - surgery following HTN - controlled on current regimen
[2017-02-02] MEDS: oxyCODONE HCL 5 MG TABLET PO PRN ×2 (07:25→17:23)
[2017-02-02] MEDS ORDERED: HEPARIN NA (PORCINE) 5,000 UNITS/ML 1ML VIAL IVPUSH PRN ×2 (07:34)
[2017-02-02 08:34] LABS: CALCIUM 7.9 mg/dL (8.5-10.1); COCKROFT - GAULT 128.282; CREATININE 0.5 mg/dL (0.55-1.02); PHOSPHOROUS 2.3 mg/dL (2.5-4.9)
[2017-02-02] MEDS ORDERED: NAPH,MB-DB/K PH,MBDB POWDER PACKET PO ONE (09:00)
[2017-02-02] MEDS: HEPARIN - 25,000 UNIT in SODIUM CHLORIDE 495 ML IV SCH ×2 (09:12→19:18)
[2017-02-02] MEDS: FUROSEMIDE 40 MG/4 ML INJECTABLE VIAL IVPUSH SCH (09:15)
[2017-02-02] MEDS: ATENOLOL 50 MG TABLET (FP) PO SCH (09:17)
[2017-02-02] MEDS: valACYclovir HCL 500 MG TABLET (FP) PO SCH (09:17)
[2017-02-02] MEDS: TOPIRAMATE 25 MG TABLET (FP) PO SCH ×2 (09:17→22:25)
[2017-02-02] MEDS: MUPIROCIN 2% TOPICAL OINTMENT FOR DECOLONIZATION NS SCH ×2 (09:18→22:22)
[2017-02-02] MEDS: LOTEPREDNOL ETABONATE OD SCH (09:19)
--- NOTE | 2017-02-02 11:07 | PN ---
Progress Note (short form) - Note Progress Note: Patient hard of hearing Subjective: The patient was seen and examined at the bedside, she reports calf pain today. No other complaints at this time B/l calf tenderness and pain with foot flexion, f/u b/l lower extremity doppler Start on Heparin gtt today for new onset a.fib Walked 10ft with PT yesterday, will need SNF placement upon discharge Current Medications Generic Name Dose Route Start Last Admin Trade Name Freq PRN Reason Stop Dose Admin Acetaminophen 650 mg 01/31/17 16:00 02/02/17 07:27 Tylenol - PO 650 mg Q4H [place] Administration Acetaminophen 325 mg 01/31/17 14:52 02/01/17 14:43 Tylenol - PO 02/03/17 14:51 325 mg Q4H PRN Administration PAIN Acetaminophen 650 mg 01/31/17 14:56 Tylenol - PO 02/03/17 14:55 Q4H PRN PAIN Atenolol 100 mg 02/01/17 10:00 02/02/17 09:17 Tenormin - PO 100 mg DAILY [place] Administration Chlorhexidine Gluconate 1 applic 01/31/17 22:00 02/01/17 21:10 Hibiclens For Decolonization - TP Not Given HS [place] Furosemide 40 mg 02/01/17 11:00 02/02/17 09:15 Lasix Injection - IVPUSH 40 mg DAILY [place] Administration Heparin Sodium (Porcine) 1,000 unit 02/02/17 07:34 Heparin - IVPUSH PRN PRN Heparin Heparin Sodium (Porcine) 5,000 unit 02/02/17 07:34 Heparin - IVPUSH PRN PRN 0 Piperacillin Sod/Tazobactam Sod 50 mls @ 100 mls/hr 01/31/17 18:00 02/02/17 01: 57 Zosyn 3.375gm Ivpb (Pre-Docked) IVPB 100 mls/hr Q8H-IV [place] Administration Protocol Heparin Sodium (Porcine) 25, 500 mls @ 16 mls/hr 02/02/17 08:30 02/02/17 09:12 000 unit/ Sodium Chloride IV 16 mls/hr TITR [place] Administration Protocol 800 UNIT/HR Mupirocin 1 applic 01/31/17 22:00 02/02/17 09:18 Bactroban Ointment (For Decolonization) - NS 02/04/17 21:59 Not Given BID [place] Non-Formulary Medication 1 drop 02/01/17 10:00 02/02/17 09:19 Loteprednol Etabonate [Alrex] OD 1 drop DAILY [place] Administration Ondansetron HCl 4 mg 01/31/17 12:03 Zofran Injection IVPB Q6H PRN NAUSEA Oxycodone HCl 5 mg 01/31/17 14:52 Roxicodone - PO Q4H PRN PAIN Oxycodone HCl 10 mg 01/31/17 14:56 02/02/17 07:25 Roxicodone - PO 10 mg Q4H PRN Administration PAIN Pantoprazole Sodium 40 mg 01/31/17 22:00 02/01/17 21:17 Protonix 40mg Ivpb (Pre-Docked) IVPB 40 mg HS [place] Administration Topiramate 25 mg 01/31/17 22:00 02/02/17 09:17 Topamax - PO 25 mg BID [place] Administration Valacyclovir HCl 500 mg 02/01/17 10:00 02/02/17 09:17 Valtrex - PO 500 mg DAILY [place] Administration Objective: Vital Signs Period Temp Pulse Resp BP Sys/Baez Pulse Ox Last 24 Hr 97.6 F-98 F 80-98 17-20 90-127/57-88 100-100 Physical Exam: General: NAD, A&Ox3, hard of hearing b/l Lungs: Decreased breath sounds bilaterally Heart: Irregular, S1S2 Abd: Right abdominal YURY with serosanguenous drainage. Soft, mild diffuse left abdominal tenderness around lap sites. Lap sites with surgical glue, c/d/i Ext: Warm, well-perfused. 2+ DP/PT bilaterally Neuro: CN 2-12 intact CBCD WBC 8.6 K/mm3 (4.0-10.0) 02/01/17 06:00 RBC 4.27 M/mm3 (3.60-5.2) 02/01/17 06:00 Hgb 13.7 GM/dL (10.7-15.3) 02/01/17 06:00 Hct 40.2 % (32.4-45.2) 02/01/17 06:00 MCV 94.2 fl (80-96) 02/01/17 06:00 MCHC 34.0 g/dl (32.0-36.0) 02/01/17 06:00 RDW 14.4 % (11.6-15.6) 02/01/17 06:00 Plt Count 196 K/MM3 (134-434) 02/01/17 06:00 MPV 8.9 fl (7.5-11.1) 02/01/17 06:00 CMP Sodium 140 mmol/L (136-145) 02/02/17 06:00 Potassium 3.8 mmol/L (3.5-5.1) 02/02/17 06:00 Chloride 103 mmol/L (98-107) 02/02/17 06:00 Carbon Dioxide 29 mmol/L (21-32) 02/02/17 06:00 Anion Gap 8 (8-16) 02/02/17 06:00 BUN 12 mg/dL (7-18) D 02/02/17 06:00 Creatinine 0.5 mg/dL (0.55-1.02) L 02/02/17 06:00 Creat Clearance w eGFR > 60 (>60) 01/31/17 05:10 Random Glucose 115 mg/dL (74-106) H 02/02/17 06:00 Calcium 7.9 mg/dL (8.5-10.1) L 02/02/17 06:00 Total Bilirubin 1.1 mg/dL (0.2-1.0) H 01/31/17 05:10 AST 17 U/L (15-37) 01/31/17 05:10 ALT 19 U/L (12-78) 01/31/17 05:10 Alkaline Phosphatase 67 U/L (45-117) 01/31/17 05:10 Total Protein 4.9 g/dl (6.4-8.2) L 01/31/17 05:10 Albumin 1.7 g/dl (3.4-5.0) L 01/31/17 05:10 CARDIAC ENZYMES Creatine Kinase 26 IU/L (26-140) 01/29/17 12:47 Troponin I 0.03 ng/ml (0.03-0.50) 01/29/17 12:47 Microbiology 01/27/17 15:54 Blood - Peripheral Venous Blood Culture - Final NO GROWTH AFTER 5 DAYS INCUBATION 01/27/17 15:54 Blood - Peripheral Venous Blood Culture - Final NO GROWTH AFTER 5 DAYS INCUBATION Assessment: This is an 87 year old female with PMHx of GERD, CHF, breast cancer s/p right breast mastectomy in 1980, HTN, migraines, hiatal hernia, 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 Lap ellen performed on 01/30. Plan: 1) GI: Acute cholecystitis, possible biliary sepsis - S/p lap ellen on 01/30: gangrenous cholecystitis with abscess and copious purulent drainage - Continue Zosyn (01/27- ) - Advance diet per surgery - Appreciate surgery consult GERD - Continue Protonix 2) ID: - Chest x-ray with bibasilar atelectatic changes with possible infiltrates and some right pleural fluid - Continue Zosyn as above - Appreciate ID consult Recent herpetic ophthalmicus - Continue Valtrex - F/u ophtho outpatient 3) Cardiology: New onset A.fib - Rate control on Atenolol - Per Dr. Enrique, start anticoagulation slowly. Started on Heparin gtt today without bolus - Appreciate cardiology consult Acute on chronic diastolic heart failure - Continue Lasix 40mg IVP daily HTN - As above 4) F/E/N: - Monitor electrolytes - Hypophosphatemia: replete - Soft diet 5) Prophylaxis: - Discontinued SCDs, patient complaints of calf pain, f/u lower extremity dopplers - On Heparin gtt - PT: walked 10ft, will need SNF placement 6) Dispo: - Requires continued inpatient care CODE STATUS: FULL CODE Visit type - Emergency Visit Emergency Visit: Yes ED Registration Date: 01/27/17 Care time: The patient presented to the Emergency Department on the above date and was hospitalized for further evaluation of their emergent condition. - New Patient This patient is new to me today: No - Critical Care Critical Care patient: No
--- NOTE | 2017-02-02 12:08 | PN ---
Progress Note, Physician Chief Complaint: pain History of Present Illness: pt c/o incisional pain. no leukocytosis. no fever. tolerating diet. - Current Medication List Current Medications: Active Medications Acetaminophen (Tylenol -) 650 mg PO Q4H [facility] Last Admin: 02/02/17 07:27 Dose: 650 mg Acetaminophen (Tylenol -) 325 mg PO Q4H PRN PRN Reason: PAIN Stop: 02/03/17 14:51 Last Admin: 02/01/17 14:43 Dose: 325 mg Acetaminophen (Tylenol -) 650 mg PO Q4H PRN PRN Reason: PAIN Stop: 02/03/17 14:55 Atenolol (Tenormin -) 100 mg PO DAILY [facility] Last Admin: 02/02/17 09:17 Dose: 100 mg Chlorhexidine Gluconate (Hibiclens For Decolonization -) 1 applic TP HS [facility] Last Admin: 02/01/17 21:10 Dose: Not Given Furosemide (Lasix Injection -) 40 mg IVPUSH DAILY [facility] Last Admin: 02/02/17 09:15 Dose: 40 mg Heparin Sodium (Porcine) (Heparin -) 1,000 unit IVPUSH PRN PRN PRN Reason: Heparin Heparin Sodium (Porcine) (Heparin -) 5,000 unit IVPUSH PRN PRN PRN Reason: 0 Piperacillin Sod/Tazobactam Sod (Zosyn 3.375gm Ivpb (Pre-Docked)) 50 mls @ 100 mls/hr IVPB Q8H-IV [place] PRN Reason: Protocol Last Admin: 02/02/17 11:37 Dose: 100 mls/hr Heparin Sodium (Porcine) 25, (000 unit/ Sodium Chloride) 500 mls @ 16 mls/hr IV TITR [place]; 800 UNIT/HR PRN Reason: Protocol Last Admin: 02/02/17 09:12 Dose: 16 mls/hr Mupirocin (Bactroban Ointment (For Decolonization) -) 1 applic NS BID [facility] Stop: 02/04/17 21:59 Last Admin: 02/02/17 09:18 Dose: Not Given Non-Formulary Medication (Loteprednol Etabonate [Alrex]) 1 drop OD DAILY [facility] Last Admin: 02/02/17 09:19 Dose: 1 drop Ondansetron HCl (Zofran Injection) 4 mg IVPB Q6H PRN PRN Reason: NAUSEA Oxycodone HCl (Roxicodone -) 5 mg PO Q4H PRN PRN Reason: PAIN Oxycodone HCl (Roxicodone -) 10 mg PO Q4H PRN PRN Reason: PAIN Last Admin: 02/02/17 07:25 Dose: 10 mg Pantoprazole Sodium (Protonix 40mg Ivpb (Pre-Docked)) 40 mg IVPB HS [facility] Last Admin: 02/01/17 21:17 Dose: 40 mg Topiramate (Topamax -) 25 mg PO BID [facility] Last Admin: 02/02/17 09:17 Dose: 25 mg Valacyclovir HCl (Valtrex -) 500 mg PO DAILY [facility] Last Admin: 02/02/17 09:17 Dose: 500 mg - Objective Vital Signs: Vital Signs Temperature 98 F 02/02/17 09:00 Pulse Rate 98 H 02/02/17 09:00 Respiratory Rate 18 02/02/17 09:00 Blood Pressure 116/74 02/02/17 09:00 O2 Sat by Pulse Oximetry (%) 100 02/02/17 09:00 Constitutional: Yes: Well Nourished, No Distress Gastrointestinal: Yes: Soft, Other (drain serous fluid. incisions c/d/i.). No : Distention, Tenderness Labs: CBC, BMP 02/01/17 06:00 02/02/17 06:00 INR, PTT INR 1.33 (0.82-1.09) H 01/30/17 06:30 Problem List - Problems (1) Acute cholecystitis Assessment/Plan: likely will d/c drain before she leaves hospital anticipate rehab Code(s): K81.0 - ACUTE CHOLECYSTITIS
[2017-02-02] MEDS: CHLORHEXIDINE GLUCONATE 4% CLEANSER FOR DECOLONIZATION TP SCH (22:22)
[2017-02-02] MEDS: PANTOPRAZOLE SODIUM 40 MG/100 ML PRE-DOCKED IVPB SCH (22:25)
[2017-02-03] MEDS: PIPERACILLIN/TAZOB 3.375 GM 50 ML IVPB SCH ×3 (01:48→18:44)
[2017-02-03] MEDS: ACETAMINOPHEN 325 MG TABLET (FP) PO SCH ×7 (03:32→21:03)
[2017-02-03 07:50] LABS: MCH 32.6 pg (25.7-33.7); MCHC 34.7 g/dl (32.0-36.0); MEAN CELL VOLUME 93.9 fl (80-96); MEAN PLT VOLUME 8.8 fl (7.5-11.1); PLATELET COUNT 244 K/MM3 (134-434); RDW 13.9 % (11.6-15.6); WHITE BLOOD COUNT 8.4 K/mm3 (4.0-10.0)
[2017-02-03 08:11] LABS: ALBUMIN 1.8 g/dl (3.4-5.0); ALK PHOS 99 U/L (45-117); ANION GAP 11 (8-16); BILIRUBIN,TOTAL 0.4 mg/dL (0.2-1.0); CALCIUM 7.7 mg/dL (8.5-10.1); CO2 25 mmol/L (21-32); COCKROFT - GAULT 159.6385; CREATININE 0.4 mg/dL (0.55-1.02); GLUCOSE,RANDOM 116 mg/dL (74-106); MAGNESIUM 1.7 mg/dL (1.8-2.4); PHOSPHOROUS 2.2 mg/dL (2.5-4.9); SGOT/AST 20 U/L (15-37); SGPT/ALT 17 U/L (12-78); TOT PROT 4.8 g/dl (6.4-8.2)
--- NOTE | 2017-02-03 08:50 | PN ---
Progress Note, Physician Chief Complaint: afib, chf History of Present Illness: remains sob, no improvement with lasix 40 iv qd x 2d now; no severe; no cp, palpit, leg swelling (SCDs on) - Current Medication List Current Medications: Active Medications Acetaminophen (Tylenol -) 650 mg PO Q4H [facility] Last Admin: 02/03/17 03:32 Dose: Not Given Acetaminophen (Tylenol -) 325 mg PO Q4H PRN PRN Reason: PAIN Stop: 02/03/17 14:51 Last Admin: 02/01/17 14:43 Dose: 325 mg Acetaminophen (Tylenol -) 650 mg PO Q4H PRN PRN Reason: PAIN Stop: 02/03/17 14:55 Atenolol (Tenormin -) 100 mg PO DAILY [facility] Last Admin: 02/02/17 09:17 Dose: 100 mg Chlorhexidine Gluconate (Hibiclens For Decolonization -) 1 applic TP HS [facility] Last Admin: 02/02/17 22:22 Dose: Not Given Furosemide (Lasix Injection -) 80 mg IVPUSH DAILY [facility] Heparin Sodium (Porcine) (Heparin -) 1,000 unit IVPUSH PRN PRN PRN Reason: Heparin Heparin Sodium (Porcine) (Heparin -) 5,000 unit IVPUSH PRN PRN PRN Reason: 0 Last Admin: 02/03/17 03:34 Dose: 5,000 unit Piperacillin Sod/Tazobactam Sod (Zosyn 3.375gm Ivpb (Pre-Docked)) 50 mls @ 100 mls/hr IVPB Q8H-IV [place] PRN Reason: Protocol Last Admin: 02/03/17 01:48 Dose: 100 mls/hr Heparin Sodium (Porcine) 25, (000 unit/ Sodium Chloride) 500 mls @ 16 mls/hr IV TITR [place]; 800 UNIT/HR PRN Reason: Protocol Last Titration: 02/03/17 03:33 Dose: 1,100 unit/hr Mupirocin (Bactroban Ointment (For Decolonization) -) 1 applic NS BID [facility] Stop: 02/04/17 21:59 Last Admin: 02/02/17 22:22 Dose: Not Given Non-Formulary Medication (Loteprednol Etabonate [Alrex]) 1 drop OD DAILY [facility] Last Admin: 02/02/17 09:19 Dose: 1 drop Ondansetron HCl (Zofran Injection) 4 mg IVPB Q6H PRN PRN Reason: NAUSEA Oxycodone HCl (Roxicodone -) 5 mg PO Q4H PRN PRN Reason: PAIN Oxycodone HCl (Roxicodone -) 10 mg PO Q4H PRN PRN Reason: PAIN Last Admin: 02/02/17 17:23 Dose: 10 mg Pantoprazole Sodium (Protonix 40mg Ivpb (Pre-Docked)) 40 mg IVPB HS [facility] Last Admin: 02/02/17 22:25 Dose: 40 mg Potassium Chloride (K-Dur -) 40 meq PO DAILY [facility] Topiramate (Topamax -) 25 mg PO BID [facility] Last Admin: 02/02/17 22:25 Dose: 25 mg Valacyclovir HCl (Valtrex -) 500 mg PO DAILY [facility] Last Admin: 02/02/17 09:17 Dose: 500 mg - Objective Vital Signs: Vital Signs Temperature 98.2 F 02/03/17 05:59 Pulse Rate 103 H 02/03/17 05:59 Respiratory Rate 18 02/03/17 05:59 Blood Pressure 116/72 02/03/17 05:59 O2 Sat by Pulse Oximetry (%) 95 02/02/17 22:00 Constitutional: Yes: Well Nourished, No Distress, Calm Cardiovascular: Yes: Pulse Irregular, S1, S2. No: JVD, Gallop, Murmur Respiratory: Yes: Regular, Diminished (R base). No: Accessory Muscle Use Extremities: No: Cold Edema: No (SCDs) Neurological: Yes: Alert, Oriented Psychiatric: No: Agitated Labs: CBC, BMP 02/03/17 06:15 02/03/17 06:15 INR, PTT INR 1.33 (0.82-1.09) H 01/30/17 06:30 - ....Imaging EKG: Other (tele: afib, good HRs) Assessment/Plan EKG: afib, vr 95 bp. poor r wave progression. no ischemic changes. tele: rate controlled afib Echo 01/27: mild conc lvh. nl lv/rv size/fn. 1+ lae, 1+ tr, 1+ phtn a/p: 87-year-old female with a significant past medical history of HTN, diastolic heart failure, migraine (? tia), GERD and hiatal hernia, who presents with acute cholecystitiis, surgery now delayed due to acute onset afib. new Afib - per dr reardon, prefer anticoagulation slowly, not to start prior to 02/02 (case was very hard and alot of inflammatory bleeding) - resumed heparin drip 02/02--monitor H/H postop - once dr reardon feels pt is out of the [place] with no bleeding, will transition to NOAC agent (e.g. eliquis) - rate controlled with atenolol, cont same - would not pursue DCCV in 87 yo pt who does not seem to be having any sx's attributable to rhythm dcHF - on lasix 40 po qd previously - 02/01: c/o sob with worsening cxr: bilat lower lobe infiltrates vs edema on my review, ? layering effusions as well--lasix 40 iv qd started - 02/02: sob same today, remains mild--same lasix, rpt cxr in am -02/03: cxr my review not signif improved, pt remains sob; bun/creat and bicarb stable--incr lasix 40 iv to 80 iv qd today -rpt cxr in am acute cholecystitis s/p cholecystectomy: - surgery following HTN - controlled on current regimen
[2017-02-03] MEDS ORDERED: PT OWN MED DRAWER 7, Y5N ONE (09:44)
[2017-02-03] MEDS: POTASSIUM CHLORIDE TABS 20 MEQ TABLET.ER (FP) PO SCH (09:50)
[2017-02-03] MEDS: FUROSEMIDE 40 MG/4 ML INJECTABLE VIAL IVPUSH SCH (09:51)
[2017-02-03] MEDS: LOTEPREDNOL ETABONATE OD SCH (09:51)
[2017-02-03] MEDS: ATENOLOL 50 MG TABLET (FP) PO SCH (09:52)
[2017-02-03] MEDS: valACYclovir HCL 500 MG TABLET (FP) PO SCH (09:52)
[2017-02-03] MEDS: TOPIRAMATE 25 MG TABLET (FP) PO SCH ×2 (09:52→21:08)
[2017-02-03] MEDS: MUPIROCIN 2% TOPICAL OINTMENT FOR DECOLONIZATION NS SCH (09:53)
--- NOTE | 2017-02-03 10:14 | PN ---
Progress Note, Physician Chief Complaint: abd pain History of Present Illness: no BM x 1 week. pain across upper abd. drain is serous output. - Current Medication List Current Medications: Active Medications Acetaminophen (Tylenol -) 650 mg PO Q4H [facility] Last Admin: 02/03/17 09:53 Dose: Not Given Acetaminophen (Tylenol -) 325 mg PO Q4H PRN PRN Reason: PAIN Stop: 02/03/17 14:51 Last Admin: 02/01/17 14:43 Dose: 325 mg Acetaminophen (Tylenol -) 650 mg PO Q4H PRN PRN Reason: PAIN Stop: 02/03/17 14:55 Atenolol (Tenormin -) 100 mg PO DAILY [facility] Last Admin: 02/03/17 09:52 Dose: 100 mg Chlorhexidine Gluconate (Hibiclens For Decolonization -) 1 applic TP HS [facility] Last Admin: 02/02/17 22:22 Dose: Not Given Furosemide (Lasix Injection -) 80 mg IVPUSH DAILY [facility] Last Admin: 02/03/17 09:51 Dose: 80 mg Heparin Sodium (Porcine) (Heparin -) 1,000 unit IVPUSH PRN PRN PRN Reason: Heparin Heparin Sodium (Porcine) (Heparin -) 5,000 unit IVPUSH PRN PRN PRN Reason: 0 Last Admin: 02/03/17 03:34 Dose: 5,000 unit Piperacillin Sod/Tazobactam Sod (Zosyn 3.375gm Ivpb (Pre-Docked)) 50 mls @ 100 mls/hr IVPB Q8H-IV [place] PRN Reason: Protocol Last Admin: 02/03/17 09:53 Dose: 100 mls/hr Heparin Sodium (Porcine) 25, (000 unit/ Sodium Chloride) 500 mls @ 16 mls/hr IV TITR [place]; 800 UNIT/HR PRN Reason: Protocol Last Titration: 02/03/17 03:33 Dose: 1,100 unit/hr Mupirocin (Bactroban Ointment (For Decolonization) -) 1 applic NS BID [facility] Stop: 02/04/17 21:59 Last Admin: 02/03/17 09:53 Dose: Not Given Non-Formulary Medication (Loteprednol Etabonate [Alrex]) 1 drop OD DAILY [facility] Last Admin: 02/03/17 09:51 Dose: 1 drop Ondansetron HCl (Zofran Injection) 4 mg IVPB Q6H PRN PRN Reason: NAUSEA Oxycodone HCl (Roxicodone -) 5 mg PO Q4H PRN PRN Reason: PAIN Oxycodone HCl (Roxicodone -) 10 mg PO Q4H PRN PRN Reason: PAIN Last Admin: 02/02/17 17:23 Dose: 10 mg Pantoprazole Sodium (Protonix 40mg Ivpb (Pre-Docked)) 40 mg IVPB HS [facility] Last Admin: 02/02/17 22:25 Dose: 40 mg Potassium Chloride (K-Dur -) 40 meq PO DAILY [facility] Last Admin: 02/03/17 09:50 Dose: 40 meq Topiramate (Topamax -) 25 mg PO BID [facility] Last Admin: 02/03/17 09:52 Dose: 25 mg Valacyclovir HCl (Valtrex -) 500 mg PO DAILY [facility] Last Admin: 02/03/17 09:52 Dose: 500 mg - Objective Vital Signs: Vital Signs Temperature 98.2 F 02/03/17 05:59 Pulse Rate 103 H 02/03/17 05:59 Respiratory Rate 18 02/03/17 05:59 Blood Pressure 116/72 02/03/17 05:59 O2 Sat by Pulse Oximetry (%) 95 02/02/17 22:00 Constitutional: Yes: No Distress, Calm Gastrointestinal: Yes: Soft, Distention, Other (drain serous. removed.). No: Tenderness Labs: CBC, BMP 02/03/17 06:15 02/03/17 06:15 INR, PTT INR 1.33 (0.82-1.09) H 01/30/17 06:30 Problem List - Problems (1) Acute cholecystitis Assessment/Plan: s/p lap ellen for gangrenous cholecystitis ileus vs constipation mag citrate rehab placement once A/C goals reached. Code(s): K81.0 - ACUTE CHOLECYSTITIS
[2017-02-03] MEDS ORDERED: MAGNESIUM CITRATE 300 ML BOTTLE PO ONE (10:30)
[2017-02-03] MEDS: HEPARIN - 25,000 UNIT in SODIUM CHLORIDE 495 ML IV SCH ×3 (10:36→21:09)
--- NOTE | 2017-02-03 12:59 | PN ---
Progress Note, Physician History of Present Illness: C/O abdominal pain with movement + Flatus No BM No fever/ chills WBC WNL Blood c/s (-) - Current Medication List Current Medications: Active Medications Acetaminophen (Tylenol -) 650 mg PO Q4H [facility] Last Admin: 02/03/17 12:34 Dose: Not Given Acetaminophen (Tylenol -) 325 mg PO Q4H PRN PRN Reason: PAIN Stop: 02/03/17 14:51 Last Admin: 02/01/17 14:43 Dose: 325 mg Acetaminophen (Tylenol -) 650 mg PO Q4H PRN PRN Reason: PAIN Stop: 02/03/17 14:55 Atenolol (Tenormin -) 100 mg PO DAILY [facility] Last Admin: 02/03/17 09:52 Dose: 100 mg Chlorhexidine Gluconate (Hibiclens For Decolonization -) 1 applic TP HS [facility] Last Admin: 02/02/17 22:22 Dose: Not Given Furosemide (Lasix Injection -) 80 mg IVPUSH DAILY [facility] Last Admin: 02/03/17 09:51 Dose: 80 mg Heparin Sodium (Porcine) (Heparin -) 1,000 unit IVPUSH PRN PRN PRN Reason: Heparin Heparin Sodium (Porcine) (Heparin -) 5,000 unit IVPUSH PRN PRN PRN Reason: 0 Last Admin: 02/03/17 03:34 Dose: 5,000 unit Piperacillin Sod/Tazobactam Sod (Zosyn 3.375gm Ivpb (Pre-Docked)) 50 mls @ 100 mls/hr IVPB Q8H-IV [place] PRN Reason: Protocol Last Admin: 02/03/17 09:53 Dose: 100 mls/hr Heparin Sodium (Porcine) 25, (000 unit/ Sodium Chloride) 500 mls @ 16 mls/hr IV TITR [place]; 800 UNIT/HR PRN Reason: Protocol Last Admin: 02/03/17 10:36 Dose: 24 mls/hr Mupirocin (Bactroban Ointment (For Decolonization) -) 1 applic NS BID [facility] Stop: 02/04/17 21:59 Last Admin: 02/03/17 09:53 Dose: Not Given Non-Formulary Medication (Loteprednol Etabonate [Alrex]) 1 drop OD DAILY [facility] Last Admin: 02/03/17 09:51 Dose: 1 drop Ondansetron HCl (Zofran Injection) 4 mg IVPB Q6H PRN PRN Reason: NAUSEA Oxycodone HCl (Roxicodone -) 5 mg PO Q4H PRN PRN Reason: PAIN Oxycodone HCl (Roxicodone -) 10 mg PO Q4H PRN PRN Reason: PAIN Last Admin: 02/02/17 17:23 Dose: 10 mg Pantoprazole Sodium (Protonix 40mg Ivpb (Pre-Docked)) 40 mg IVPB HS [facility] Last Admin: 02/02/17 22:25 Dose: 40 mg Potassium Chloride (K-Dur -) 40 meq PO DAILY [facility] Last Admin: 02/03/17 09:50 Dose: 40 meq Topiramate (Topamax -) 25 mg PO BID [facility] Last Admin: 02/03/17 09:52 Dose: 25 mg Valacyclovir HCl (Valtrex -) 500 mg PO DAILY [facility] Last Admin: 02/03/17 09:52 Dose: 500 mg - Objective Vital Signs: Vital Signs Temperature 98.2 F 02/03/17 05:59 Pulse Rate 103 H 02/03/17 05:59 Respiratory Rate 18 02/03/17 05:59 Blood Pressure 116/72 02/03/17 05:59 O2 Sat by Pulse Oximetry (%) 95 02/02/17 22:00 Constitutional: Yes: No Distress, Obese Eyes: Yes: Conjunctiva Clear Cardiovascular: Yes: S1, S2 Respiratory: Yes: Diminished Gastrointestinal: Yes: Normal Bowel Sounds, Soft, Tenderness, Other (mild diffuse tenderness Surgical wounds clear) Labs: CBC, BMP 02/03/17 06:15 02/03/17 06:15 INR, PTT INR 1.33 (0.82-1.09) H 01/30/17 06:30 Assessment/Plan Post op lap ellen POD # 4- gangrenous gall bladder/ abscess Leukocytosis, possible biliary sepsis- improved Switch to po Augmentin 24hr
--- NOTE | 2017-02-03 13:58 | PATH ---
Surgical Pathology Report Patient Name: LATISHA JARAMILLO [facility]. Rec. #: [id number] /Age/Gender: 1930 (Age: 87) / F Account: [id number] Location: 4 PEDS/ADOL Taken: 01/30/2017 Received: 01/31/2017 Reported: 02/03/2017 Physicians: MD Alfonzo Gutierrez M.D. Specimen(s) Received GALLBLADDER Clinical History Acute cholecystitis Final Diagnosis GALLBLADDER, CHOLECYSTECTOMY: ACUTE GANGRENOUS CHOLECYSTITIS; CHOLELITHIASIS. Electronically Signed Quentin Martin M.D. Gross Description Received in formalin, labeled "gallbladder" is a 11.0 x 5.5 x 3.7 cm. gallbladder with a 0.2 cm. in length portion of cystic duct attached. The outer surface is chisholm-han with attached exudate and a focal defect. The lumen contains numerous chisholm-green, irregular choleliths ranging from 0.8-1.0 cm in greatest dimension. The mucosa is hyperemic with focal exudate. The wall of the gallbladder ranges from 0.2-0.5 cm in thickness. Crane Chaser sections are submitted in one cassette. /01/31/2017 [place]01/31/2017
[2017-02-03] MEDS ORDERED: MAGNESIUM SULF 50% (8.12 MEQ/2 ML-1 GM VIAL) IVPB ONE (16:52)
--- NOTE | 2017-02-03 17:07 | PN ---
Physical Exam: SUBJECTIVE: Patient seen and examined. She says she has abdominal pain. She did not ambulate today, she wants to sit in a chair. She does not want to go to penitentiary. OBJECTIVE: Vital Signs Period Temp Pulse Resp BP Sys/Baez Pulse Ox Last 24 Hr 97.8 F-98.2 F 92-103 18-18 116-140/67-89 95-97 PE Neuro: alert, awake, cn 2-12intact Heent: hard of hearing, b/l hear aids, post op R pupil dilation, L eye perrla Breast: R breast mastectomy Pulm: bi basilar crackles R>L, + NC CV: s1 s2 irregular rhythm regular rate Abd: bobby drain dressing CDI, mild tenderness, soft + bs Ext: warm, le edema, non pitting CBCD WBC 8.4 K/mm3 (4.0-10.0) 02/03/17 06:15 RBC 3.92 M/mm3 (3.60-5.2) 02/03/17 06:15 Hgb 12.8 GM/dL (10.7-15.3) 02/03/17 06:15 Hct 36.9 % (32.4-45.2) 02/03/17 06:15 MCV 93.9 fl (80-96) 02/03/17 06:15 MCHC 34.7 g/dl (32.0-36.0) 02/03/17 06:15 RDW 13.9 % (11.6-15.6) 02/03/17 06:15 Plt Count 244 K/MM3 (134-434) D 02/03/17 06:15 MPV 8.8 fl (7.5-11.1) 02/03/17 06:15 CMP Sodium 140 mmol/L (136-145) 02/03/17 06:15 Potassium 3.6 mmol/L (3.5-5.1) 02/03/17 06:15 Chloride 104 mmol/L (98-107) 02/03/17 06:15 Carbon Dioxide 25 mmol/L (21-32) 02/03/17 06:15 Anion Gap 11 (8-16) 02/03/17 06:15 BUN 9 mg/dL (7-18) D 02/03/17 06:15 Creatinine 0.4 mg/dL (0.55-1.02) L 02/03/17 06:15 Creat Clearance w eGFR > 60 (>60) 02/03/17 06:15 Calcium 7.7 mg/dL (8.5-10.1) L 02/03/17 06:15 Total Bilirubin 0.4 mg/dL (0.2-1.0) D 02/03/17 06:15 AST 20 U/L (15-37) 02/03/17 06:15 ALT 17 U/L (12-78) 02/03/17 06:15 Alkaline Phosphatase 99 U/L (45-117) D 02/03/17 06:15 Total Protein 4.8 g/dl (6.4-8.2) L 02/03/17 06:15 Albumin 1.8 g/dl (3.4-5.0) L 02/03/17 06:15 02/03/17 06:15 Phosphorus 2.2 L Magnesium 1.7 L Active Medications Generic Name Dose Route Start Last Admin Trade Name Mehdiq PRN Reason Stop Dose Admin Acetaminophen 650 mg 01/31/17 16:00 02/03/17 12:34 Tylenol - PO Not Given Q4H [place] Atenolol 100 mg 02/01/17 10:00 02/03/17 09:52 Tenormin - PO 100 mg DAILY [place] Administration Chlorhexidine Gluconate 1 applic 01/31/17 22:00 02/02/17 22:22 Hibiclens For Decolonization - TP Not Given HS [place] Furosemide 80 mg 02/03/17 10:00 02/03/17 09:51 Lasix Injection - IVPUSH 80 mg DAILY [place] Administration Heparin Sodium (Porcine) 1,000 unit 02/02/17 07:34 Heparin - IVPUSH PRN PRN Heparin Heparin Sodium (Porcine) 5,000 unit 02/02/17 07:34 02/03/17 03:34 Heparin - IVPUSH 5,000 unit PRN PRN Administration 0 Piperacillin Sod/Tazobactam Sod 50 mls @ 100 mls/hr 01/31/17 18:00 02/03/17 09: 53 Zosyn 3.375gm Ivpb (Pre-Docked) IVPB 100 mls/hr Q8H-IV [place] Administration Protocol Heparin Sodium (Porcine) 25, 500 mls @ 16 mls/hr 02/02/17 08:30 02/03/17 10:36 000 unit/ Sodium Chloride IV 24 mls/hr TITR [place] Administration Protocol 800 UNIT/HR Mupirocin 1 applic 01/31/17 22:00 02/03/17 09:53 Bactroban Ointment (For Decolonization) - NS 02/04/17 21:59 Not Given BID [place] Non-Formulary Medication 1 drop 02/01/17 10:00 02/03/17 09:51 Loteprednol Etabonate [Alrex] OD 1 drop DAILY [place] Administration Ondansetron HCl 4 mg 01/31/17 12:03 Zofran Injection IVPB Q6H PRN NAUSEA Oxycodone HCl 5 mg 01/31/17 14:52 Roxicodone - PO Q4H PRN PAIN Oxycodone HCl 10 mg 01/31/17 14:56 02/02/17 17:23 Roxicodone - PO 10 mg Q4H PRN Administration PAIN Pantoprazole Sodium 40 mg 01/31/17 22:00 02/02/17 22:25 Protonix 40mg Ivpb (Pre-Docked) IVPB 40 mg HS [place] Administration Potassium Chloride 40 meq 02/03/17 10:00 02/03/17 09:50 K-Dur - PO 40 meq DAILY [place] Administration Topiramate 25 mg 01/31/17 22:00 02/03/17 09:52 Topamax - PO 25 mg BID [place] Administration Valacyclovir HCl 500 mg 02/01/17 10:00 02/03/17 09:52 Valtrex - PO 500 mg DAILY [place] Administration Imaging: - CXR: Bibasilar atelectatic changes with possible infiltrates and some right pleural fluid Assessment: 87 year old female with PMHx of GERD, CHF, breast cancer s/p right breast mastectomy in 1980, HTN, migraines, hiatal hernia, cornea transplant (5- 6 years ago), who presented to the [place] ED on 01/27 with acute cholecystitis and while in the OR developed new onset A.fib and was transferred to [facility]. Lap ellen performed on 01/30. Plan: 1. Acute cholecystitis, possible biliary sepsis - S/p lap ellen on 01/30: gangrenous cholecystitis with abscess and copious purulent drainage - Continue Zosyn through tomorrow - Start Augmentin tomorrow, per ID 2. New onset A.fib - Rate control on Atenolol - Continue heparin gtt tonight - Start eliquis BID tomorrow AM, stop heparin gtt 2 hr after AM dose 3. Acute on chronic diastolic heart failure - Continue Lasix 40mg IVP daily - Daily K dur 40meq 4. GERD - Continue Protonix 5. Recent herpetic ophthalmicus - Continue Valtrex - F/u ophtho outpatient 6. HTN - As above 7. Hypophosphatemia - replete x2pks now 8. Hypomagnesemia - replete 1gm mg x1 9. Lower ext calf pain - DVT dopplers negative, if sx persiste repeat in 3-7 days Visit type - Emergency Visit Emergency Visit: Yes ED Registration Date: 01/27/17 Care time: The patient presented to the Emergency Department on the above date and was hospitalized for further evaluation of their emergent condition. - New Patient This patient is new to me today: No - Critical Care Critical Care patient: No
[2017-02-03] MEDS ORDERED: NAPH,MB-DB/K PH,MBDB POWDER PACKET PO ONE (17:08)
[2017-02-03] MEDS: oxyCODONE HCL 5 MG TABLET PO PRN (20:59)
[2017-02-03] MEDS: PANTOPRAZOLE SODIUM 40 MG/100 ML PRE-DOCKED IVPB SCH (21:00)
[2017-02-04] MEDS: ACETAMINOPHEN 325 MG TABLET (FP) PO SCH ×7 (01:00→21:05)
[2017-02-04] MEDS: PIPERACILLIN/TAZOB 3.375 GM 50 ML IVPB SCH ×2 (02:24→09:41)
[2017-02-04 07:37] LABS: MCH 31.8 pg (25.7-33.7); MCHC 33.9 g/dl (32.0-36.0); MEAN CELL VOLUME 93.6 fl (80-96); MEAN PLT VOLUME 8.4 fl (7.5-11.1); PLATELET COUNT 281 K/MM3 (134-434); RDW 14.2 % (11.6-15.6); WHITE BLOOD COUNT 10.6 K/mm3 (4.0-10.0)
[2017-02-04 08:42] LABS: COCKROFT - GAULT 124.372; CREATININE 0.5 mg/dL (0.55-1.02)
[2017-02-04] MEDS ORDERED: PT OWN MED DRAWER 7, Y5N ONE ×2 (09:23→20:25)
[2017-02-04] MEDS: APIXABAN 5 MG TABLET PO SCH ×2 (09:41→21:04)
[2017-02-04] MEDS: ATENOLOL 50 MG TABLET (FP) PO SCH (09:45)
[2017-02-04] MEDS: valACYclovir HCL 500 MG TABLET (FP) PO SCH (09:45)
[2017-02-04] MEDS: POTASSIUM CHLORIDE TABS 20 MEQ TABLET.ER (FP) PO SCH (09:45)
[2017-02-04] MEDS: FUROSEMIDE 40 MG/4 ML INJECTABLE VIAL IVPUSH SCH (09:45)
[2017-02-04] MEDS: TOPIRAMATE 25 MG TABLET (FP) PO SCH ×2 (09:45→21:04)
[2017-02-04] MEDS: HEPARIN - 25,000 UNIT in SODIUM CHLORIDE 495 ML IV SCH (09:46)
[2017-02-04] MEDS: LOTEPREDNOL ETABONATE OD SCH (09:46)
--- NOTE | 2017-02-04 09:52 | SURG ---
Surgery Field Cane Scaler Note Field Cane Scaler: Jenna Virk PA-C Date of Service: 01/30/17 Diagnosis: cholecystitis Procedure: laparoscopic cholecystectomy I was present for the entirety of the operative procedure. For further detail, please refer to operative report. Visit type - Case Type Case Type: ED Admission - Emergency Emergency Visit: Yes ED Registration Date: 01/27/17 Care time: The patient presented to the Emergency Department on the above date and was hospitalized for further evaluation of their emergent condition. - New patient This patient is new to me today: Yes Date on this admission: 02/04/17 - Critical Care Critical Care patient: No
--- NOTE | 2017-02-04 10:32 | PN ---
Progress Note (short form) - Note Progress Note: Chief Complaint: afib, chf History of Present Illness: ambulated today. no cp, palpit. sob persists. Current Medications Acetaminophen (Tylenol -) 650 mg PO Q4H [facility] Last Admin: 02/04/17 05:49 Dose: 650 mg Apixaban (Eliquis -) 5 mg PO BID [place] Last Admin: 02/04/17 09:41 Dose: 5 mg Atenolol (Tenormin -) 100 mg PO DAILY [facility] Last Admin: 02/04/17 09:45 Dose: 100 mg Furosemide (Lasix Injection -) 80 mg IVPUSH DAILY [place] Last Admin: 02/04/17 09:45 Dose: 80 mg Heparin Sodium (Porcine) (Heparin -) 1,000 unit IVPUSH PRN PRN PRN Reason: Heparin Heparin Sodium (Porcine) (Heparin -) 5,000 unit IVPUSH PRN PRN PRN Reason: 0 Last Admin: 02/03/17 03:34 Dose: 5,000 unit Piperacillin Sod/Tazobactam Sod (Zosyn 3.375gm Ivpb (Pre-Docked)) 50 mls @ 100 mls/hr IVPB Q8H-IV [place] PRN Reason: Protocol Last Admin: 02/04/17 09:41 Dose: 100 mls/hr Heparin Sodium (Porcine) 25, (000 unit/ Sodium Chloride) 500 mls @ 16 mls/hr IV TITR [place]; 800 UNIT/HR PRN Reason: Protocol Last Admin: 02/04/17 09:46 Dose: Not Given Non-Formulary Medication (Loteprednol Etabonate [Alrex]) 1 drop OD DAILY [facility] Last Admin: 02/04/17 09:46 Dose: 1 drop Ondansetron HCl (Zofran Injection) 4 mg IVPB Q6H PRN PRN Reason: NAUSEA Oxycodone HCl (Roxicodone -) 5 mg PO Q4H PRN PRN Reason: PAIN Last Admin: 02/03/17 20:59 Dose: 5 mg Oxycodone HCl (Roxicodone -) 10 mg PO Q4H PRN PRN Reason: PAIN Last Admin: 02/02/17 17:23 Dose: 10 mg Pantoprazole Sodium (Protonix 40mg Ivpb (Pre-Docked)) 40 mg IVPB HS [facility] Last Admin: 02/03/17 21:00 Dose: 40 mg Potassium Chloride (K-Dur -) 40 meq PO DAILY [facility] Last Admin: 02/04/17 09:45 Dose: 40 meq Topiramate (Topamax -) 25 mg PO BID [facility] Last Admin: 02/04/17 09:45 Dose: 25 mg Valacyclovir HCl (Valtrex -) 500 mg PO DAILY [facility] Last Admin: 02/04/17 09:45 Dose: 500 mg Vital Signs - 24 hr 02/03/17 02/03/17 02/04/17 18:40 22:00 02:00 Temperature 98.7 F 98.8 F Pulse Rate 92 H 100 H Respiratory 18 18 Rate Blood Pressure 102/70 126/66 O2 Sat by Pulse 97 Oximetry (%) 02/04/17 05:54 Temperature 97.9 F Pulse Rate 89 Respiratory 18 Rate Blood Pressure 106/70 O2 Sat by Pulse Oximetry (%) Intake & Output 02/02/17 02/03/17 02/04/17 02/05/17 07:59 07:59 07:59 07:59 Intake Total 737 870 7179 Output Total 95 80 Balance 305 797 8606 Weight 226 lb 225 lb 219 lb 2 oz Constitutional: Yes: Well Nourished, No Distress, Calm Cardiovascular: Yes: Pulse Irregular, S1, S2. No: JVD, Gallop, Murmur Respiratory: Yes: Regular, Diminished bibasilar No: Accessory Muscle Use Extremities: No: Cold Edema: trace Neurological: Yes: Alert, Oriented Psychiatric: No: Agitated Labs: CBC, BMP 02/04/17 06:30 02/04/17 06:30 - ....Imaging EKG: Other (tele: afib, good HRs) Assessment/Plan EKG: afib, vr 95 bp. poor r wave progression. no ischemic changes. Echo 01/27: mild conc lvh. nl lv/rv size/fn. 1+ lae, 1+ tr, 1+ phtn a/p: 87-year-old female with a significant past medical history of HTN, diastolic heart failure, migraine (? tia), GERD and very large hiatal hernia filling thoracic space, who presents with acute cholecystitiis, surgery now delayed due to acute onset afib. new Afib - per dr reardon, prefer anticoagulation slowly, not to start prior to 02/02 (case was very hard and alot of inflammatory bleeding) - resumed heparin drip 02/02 and now stopped. Eliquis resumed today 02/04. - rate controlled with atenolol, cont same - would not pursue DCCV in 87 yo pt who does not seem to be having any sx's attributable to rhythm dcHF - on lasix 40 po qd previously - 02/01: c/o sob with worsening cxr: bilat lower lobe infiltrates vs edema on my review, ? layering effusions as well--lasix 40 iv qd started - 02/02: sob same today, remains mild--same lasix, rpt cxr in am - 02/03: cxr my review not signif improved, pt remains sob; bun/creat and bicarb stable--incr lasix 40 iv to 80 iv qd today - 02/04: diuresing well, weight coming down. no sig change in cxr (although large hiatal hernia somewhat obscures visualization). SOB persists, will con't same diuresis. Monitor for pulmonary infection per pmd/ID. Currently remains afebrile. acute cholecystitis s/p cholecystectomy: - surgery following HTN - controlled on current regimen (currently running slightly low, monitor)
--- NOTE | 2017-02-04 11:57 | PN ---
Progress Note, Physician History of Present Illness: OOB in chair No c/o abominal pain Tolerating solid diet No N/V + BM Afebrile WBC 10.6 BC (-) - Current Medication List Current Medications: Active Medications Acetaminophen (Tylenol -) 650 mg PO Q4H [facility] Last Admin: 02/04/17 05:49 Dose: 650 mg Apixaban (Eliquis -) 5 mg PO BID [facility] Last Admin: 02/04/17 09:41 Dose: 5 mg Atenolol (Tenormin -) 100 mg PO DAILY [facility] Last Admin: 02/04/17 09:45 Dose: 100 mg Furosemide (Lasix Injection -) 80 mg IVPUSH DAILY [facility] Last Admin: 02/04/17 09:45 Dose: 80 mg Piperacillin Sod/Tazobactam Sod (Zosyn 3.375gm Ivpb (Pre-Docked)) 50 mls @ 100 mls/hr IVPB Q8H-IV [place] PRN Reason: Protocol Last Admin: 02/04/17 09:41 Dose: 100 mls/hr Non-Formulary Medication (Loteprednol Etabonate [Alrex]) 1 drop OD DAILY [facility] Last Admin: 02/04/17 09:46 Dose: 1 drop Ondansetron HCl (Zofran Injection) 4 mg IVPB Q6H PRN PRN Reason: NAUSEA Oxycodone HCl (Roxicodone -) 5 mg PO Q4H PRN PRN Reason: PAIN Last Admin: 02/03/17 20:59 Dose: 5 mg Oxycodone HCl (Roxicodone -) 10 mg PO Q4H PRN PRN Reason: PAIN Last Admin: 02/02/17 17:23 Dose: 10 mg Pantoprazole Sodium (Protonix 40mg Ivpb (Pre-Docked)) 40 mg IVPB HS [facility] Last Admin: 02/03/17 21:00 Dose: 40 mg Potassium Chloride (K-Dur -) 40 meq PO DAILY [facility] Last Admin: 02/04/17 09:45 Dose: 40 meq Topiramate (Topamax -) 25 mg PO BID [facility] Last Admin: 02/04/17 09:45 Dose: 25 mg Valacyclovir HCl (Valtrex -) 500 mg PO DAILY [facility] Last Admin: 02/04/17 09:45 Dose: 500 mg - Objective Vital Signs: Vital Signs Temperature 97.9 F 02/04/17 05:54 Pulse Rate 89 02/04/17 05:54 Respiratory Rate 18 02/04/17 05:54 Blood Pressure 106/70 02/04/17 05:54 O2 Sat by Pulse Oximetry (%) 97 02/03/17 22:00 Constitutional: Yes: No Distress, Obese Eyes: Yes: Conjunctiva Clear Cardiovascular: Yes: Regular Rate and Rhythm, S1, S2 Respiratory: Yes: Diminished Gastrointestinal: Yes: Normal Bowel Sounds, Soft, Abdomen, Obese. No: Tenderness Edema: Yes Labs: CBC, BMP 02/04/17 06:30 02/04/17 06:30 INR, PTT INR 1.33 (0.82-1.09) H 01/30/17 06:30 Assessment/Plan Post op lap ellen POD # 5- gangrenous gall bladder/ abscess Leukocytosis, possible biliary sepsis- improved Switch to po Augmentin
[2017-02-04] MEDS: oxyCODONE HCL 5 MG TABLET PO PRN ×2 (14:52→20:36)
--- NOTE | 2017-02-04 16:04 | PN ---
Physical Exam: SUBJECTIVE: Patient seen and examined. She says she feels much better today. She is oob to chair and still has abd pain. OBJECTIVE: Vital Signs Period Temp Pulse Resp BP Sys/Baez Pulse Ox Last 24 Hr 97.8 F-98.8 F 81-100 18-18 102-126/66-70 97-97 PE Neuro: alert, awake, cn 2-12intact Heent: b/l hear aids Breast: R breast mastectomy Pulm: bi basilar crackles L>R , + NC CV: s1 s2 irregular rhythm regular rate Abd: bobby drain dressing CDI, mild tenderness, soft + bs Ext: warm, le edema, non pitting CBCD WBC 10.6 K/mm3 (4.0-10.0) H 02/04/17 06:30 RBC 4.24 M/mm3 (3.60-5.2) 02/04/17 06:30 Hgb 13.5 GM/dL (10.7-15.3) 02/04/17 06:30 Hct 39.7 % (32.4-45.2) 02/04/17 06:30 MCV 93.6 fl (80-96) 02/04/17 06:30 MCHC 33.9 g/dl (32.0-36.0) 02/04/17 06:30 RDW 14.2 % (11.6-15.6) 02/04/17 06:30 Plt Count 281 K/MM3 (134-434) 02/04/17 06:30 MPV 8.4 fl (7.5-11.1) 02/04/17 06:30 CMP Sodium 138 mmol/L (136-145) 02/04/17 06:30 Potassium 4.1 mmol/L (3.5-5.1) 02/04/17 06:30 Chloride 101 mmol/L (98-107) 02/04/17 06:30 Carbon Dioxide 26 mmol/L (21-32) 02/04/17 06:30 Anion Gap 11 (8-16) 02/04/17 06:30 BUN 9 mg/dL (7-18) 02/04/17 06:30 Creatinine 0.5 mg/dL (0.55-1.02) L D 02/04/17 06:30 Creat Clearance w eGFR > 60 (>60) 02/03/17 06:15 Calcium 8.0 mg/dL (8.5-10.1) L 02/04/17 06:30 Total Bilirubin 0.4 mg/dL (0.2-1.0) D 02/03/17 06:15 AST 20 U/L (15-37) 02/03/17 06:15 ALT 17 U/L (12-78) 02/03/17 06:15 Alkaline Phosphatase 99 U/L (45-117) D 02/03/17 06:15 Total Protein 4.8 g/dl (6.4-8.2) L 02/03/17 06:15 Albumin 1.8 g/dl (3.4-5.0) L 02/03/17 06:15 Active Medications Generic Name Dose Route Start Last Admin Trade Name Freq PRN Reason Stop Dose Admin Acetaminophen 650 mg 01/31/17 16:00 02/04/17 14:53 Tylenol - PO 650 mg Q4H [place] Administration Amoxicillin/Clavulanate Potassium 1 tab 02/04/17 17:30 Augmentin - 875mg Tablet PO BID@0800,1730 [place] Apixaban 5 mg 02/04/17 10:00 02/04/17 09:41 Eliquis - PO 5 mg BID [place] Administration Atenolol 100 mg 02/01/17 10:00 02/04/17 09:45 Tenormin - PO 100 mg DAILY [place] Administration Furosemide 80 mg 02/03/17 10:00 02/04/17 09:45 Lasix Injection - IVPUSH 80 mg DAILY [place] Administration Lactobacillus Acidophilus 1 tab 02/04/17 16:00 Bacid - PO DAILY [facility] Non-Formulary Medication 1 drop 02/01/17 10:00 02/04/17 09:46 Loteprednol Etabonate [Alrex] OD 1 drop DAILY [place] Administration Ondansetron HCl 4 mg 01/31/17 12:03 Zofran Injection IVPB Q6H PRN NAUSEA Oxycodone HCl 5 mg 01/31/17 14:52 02/04/17 14:52 Roxicodone - PO 5 mg Q4H PRN Administration PAIN Oxycodone HCl 10 mg 01/31/17 14:56 02/02/17 17:23 Roxicodone - PO 10 mg Q4H PRN Administration PAIN Pantoprazole Sodium 40 mg 01/31/17 22:00 02/03/17 21:00 Protonix 40mg Ivpb (Pre-Docked) IVPB 40 mg HS [place] Administration Potassium Chloride 40 meq 02/03/17 10:00 02/04/17 09:45 K-Dur - PO 40 meq DAILY [place] Administration Topiramate 25 mg 01/31/17 22:00 02/04/17 09:45 Topamax - PO 25 mg BID [place] Administration Valacyclovir HCl 500 mg 02/01/17 10:00 02/04/17 09:45 Valtrex - PO 500 mg DAILY [place] Administration Assessment: 87 year old female with PMHx of GERD, CHF, breast cancer s/p right breast mastectomy in 1980, HTN, migraines, hiatal hernia, cornea transplant (5- 6 years ago), who presented to the [place] ED on 01/27 with acute cholecystitis and while in the OR developed new onset A.fib and was transferred to [facility]. Lap ellen performed on 01/30. Plan: 1. Acute cholecystitis - S/p lap ellen on 01/30: gangrenous cholecystitis with abscess and copious purulent drainage - Discontinue Zosyn today - Start Augmentin BID today x 3 days 2. New onset A.fib - Rate control on Atenolol - Eliquis started today 5 BID 3. Acute on chronic diastolic heart failure - Lasix 80mg IVP daily - Daily K dur 40meq 4. GERD - Continue Protonix 5. Recent herpetic ophthalmicus - Continue Valtrex - F/u ophtho outpatient 6. HTN - As above 7. Hypophosphatemia - check level in AM 8. Hypomagnesemia - Check level in AM 9. Lower ext calf pain - DVT dopplers negative, if sx persiste repeat in 3-7 days Dispo: - PT to eval for SNF vs home with VNS Visit type - Emergency Visit Emergency Visit: Yes ED Registration Date: 01/27/17 Care time: The patient presented to the Emergency Department on the above date and was hospitalized for further evaluation of their emergent condition. - New Patient This patient is new to me today: No - Critical Care Critical Care patient: No
[2017-02-04] MEDS: LACTOBACILLUS ACIDOPHILUS 1 EACH TAB (FP) PO SCH (16:55)
[2017-02-04] MEDS: AMOX TR/POT CLAV 875MG/125MG TABLETS (FP) PO SCH (16:55)
[2017-02-04] MEDS: PANTOPRAZOLE SODIUM 40 MG/100 ML PRE-DOCKED IVPB SCH (21:05)
[2017-02-05] MEDS: ACETAMINOPHEN 325 MG TABLET (FP) PO SCH ×4 (05:08→15:50)
[2017-02-05 08:16] LABS: MCH 31.3 pg (25.7-33.7); MCHC 32.9 g/dl (32.0-36.0); MEAN CELL VOLUME 95.3 fl (80-96); MEAN PLT VOLUME 8.2 fl (7.5-11.1); PLATELET COUNT 289 K/MM3 (134-434); RDW 14.2 % (11.6-15.6); WHITE BLOOD COUNT 9.7 K/mm3 (4.0-10.0)
[2017-02-05 09:01] LABS: CALCIUM 7.8 mg/dL (8.5-10.1); COCKROFT - GAULT 122.5445; CREATININE 0.5 mg/dL (0.55-1.02)
[2017-02-05] MEDS ORDERED: PT OWN MED DRAWER 7, Y5N ONE (09:53)
[2017-02-05] MEDS: LACTOBACILLUS ACIDOPHILUS 1 EACH TAB (FP) PO SCH (10:03)
[2017-02-05] MEDS: ATENOLOL 50 MG TABLET (FP) PO SCH (10:03)
[2017-02-05] MEDS: APIXABAN 5 MG TABLET PO SCH (10:03)
[2017-02-05] MEDS: valACYclovir HCL 500 MG TABLET (FP) PO SCH (10:03)
[2017-02-05] MEDS: POTASSIUM CHLORIDE TABS 20 MEQ TABLET.ER (FP) PO SCH (10:03)
[2017-02-05] MEDS: FUROSEMIDE 40 MG/4 ML INJECTABLE VIAL IVPUSH SCH (10:04)
[2017-02-05] MEDS: AMOX TR/POT CLAV 875MG/125MG TABLETS (FP) PO SCH (10:04)
[2017-02-05] MEDS: TOPIRAMATE 25 MG TABLET (FP) PO SCH (10:04)
[2017-02-05] MEDS: oxyCODONE HCL 5 MG TABLET PO PRN (10:06)
[2017-02-05] MEDS: LOTEPREDNOL ETABONATE OD SCH (10:16)
--- NOTE | 2017-02-05 10:32 | PN ---
Progress Note (short form) - Note Progress Note: s: no cp sob palps dizzy, still feels weak with PT Current Medications Generic Name Dose Route Start Last Admin Trade Name Freq PRN Reason Stop Dose Admin Acetaminophen 650 mg 01/31/17 16:00 02/05/17 10:04 Tylenol - PO 650 mg Q4H [place] Administration Amoxicillin/Clavulanate Potassium 1 tab 02/04/17 17:30 02/05/17 10:04 Augmentin - 875mg Tablet PO 1 tab BID@0800,1730 [place] Administration Apixaban 5 mg 02/04/17 10:00 02/05/17 10:03 Eliquis - PO 5 mg BID [place] Administration Atenolol 100 mg 02/01/17 10:00 02/05/17 10:03 Tenormin - PO 100 mg DAILY [place] Administration Furosemide 80 mg 02/03/17 10:00 02/05/17 10:04 Lasix Injection - IVPUSH 80 mg DAILY [place] Administration Lactobacillus Acidophilus 1 tab 02/04/17 16:00 02/05/17 10:03 Bacid - PO 1 tab DAILY [place] Administration Non-Formulary Medication 1 drop 02/01/17 10:00 02/05/17 10:16 Loteprednol Etabonate [Alrex] OD Not Given DAILY [place] Ondansetron HCl 4 mg 01/31/17 12:03 Zofran Injection IVPB Q6H PRN NAUSEA Oxycodone HCl 5 mg 01/31/17 14:52 02/04/17 20:36 Roxicodone - PO 5 mg Q4H PRN Administration PAIN Oxycodone HCl 10 mg 01/31/17 14:56 02/05/17 10:06 Roxicodone - PO 10 mg Q4H PRN Administration PAIN Pantoprazole Sodium 40 mg 01/31/17 22:00 02/04/17 21:05 Protonix 40mg Ivpb (Pre-Docked) IVPB 40 mg HS [place] Administration Potassium Chloride 40 meq 02/03/17 10:00 02/05/17 10:03 K-Dur - PO 40 meq DAILY [place] Administration Topiramate 25 mg 01/31/17 22:00 02/05/17 10:04 Topamax - PO 25 mg BID [place] Administration Valacyclovir HCl 500 mg 02/01/17 10:00 02/05/17 10:03 Valtrex - PO 500 mg DAILY [place] Administration Vital Signs Period Temp Pulse Resp BP Sys/Baez Pulse Ox Last 24 Hr 97.6 F-98.2 F 76-84 18-18 90-112/54-66 92-93 Constitutional: Yes: Well Nourished, No Distress, Calm Cardiovascular: Yes: Pulse Irregular, S1, S2. No: JVD, Gallop, Murmur Respiratory: Yes: Regular, Diminished bibasilar No: Accessory Muscle Use Extremities: No: Cold Edema: trace Neurological: Yes: Alert, Oriented Psychiatric: No: Agitated no jaundice diaphoresis Labs: CBC, BMP 02/05/17 07:40 02/05/17 05:35 tele: afib, good HRs EKG: afib, vr 95 bp. poor r wave progression. no ischemic changes. Echo 01/27: mild conc lvh. nl lv/rv size/fn. 1+ lae, 1+ tr, 1+ phtn a/p: 87-year-old female with a significant past medical history of HTN, diastolic heart failure, migraine (? tia), GERD and very large hiatal hernia filling thoracic space, who presents with acute cholecystitiis, surgery now delayed due to acute onset afib. new Afib - rate controlled on atenolol - cont eliquis - would not pursue DCCV in 87 yo pt who does not seem to be having any sx's attributable to rhythm dcHF - on lasix 40 po qd previously - 02/01: c/o sob with worsening cxr: bilat lower lobe infiltrates vs edema on my review, ? layering effusions as well--lasix 40 iv qd started - 02/02: sob same today, remains mild--same lasix, rpt cxr in am - 02/03: cxr my review not signif improved, pt remains sob; bun/creat and bicarb stable--incr lasix 40 iv to 80 iv qd today - 02/04-: diuresing well, weight coming down, cr stable. cont same iv lasix for now acute cholecystitis s/p cholecystectomy: - surgery following HTN - controlled on current regimen (currently running slightly low, monitor)
--- NOTE | 2017-02-05 13:32 | DS ---
Physical Exam: SUBJECTIVE: Patient seen and examined OBJECTIVE: Vital Signs Period Temp Pulse Resp BP Sys/Baez Pulse Ox Last 24 Hr 97.6 F-98.2 F 76-84 18-18 90-112/54-66 92-93 PHYSICAL EXAM GENERAL: The patient is awake, alert, and fully oriented, in no acute distress. HEAD: Normal with no signs of trauma. EYES: PERRL, extraocular movements intact, sclera anicteric, conjunctiva clear. ENT: Ears normal, nares patent, oropharynx clear without exudates, moist mucous membranes. NECK: Trachea midline, full range of motion, supple. LUNGS: Breath sounds equal, clear to auscultation bilaterally, no wheezes, no crackles, no accessory muscle use. HEART: Regular rate and rhythm, S1, S2 without murmur, rub or gallop. ABDOMEN: Soft, nontender, nondistended, normoactive bowel sounds, no guarding, no rebound, no hepatosplenomegaly, no masses. EXTREMITIES: 2+ pulses, warm, well-perfused, no edema. NEUROLOGICAL: Cranial nerves II through XII grossly intact. Normal speech, gait not observed. PSYCH: Normal mood, normal affect. SKIN: Warm, dry, normal turgor, no rashes or lesions noted. LABS Laboratory Results - last 24 hr 02/05/17 02/05/17 05:35 07:40 WBC 9.7 RBC 4.26 Hgb 13.3 Hct 40.6 MCV 95.3 MCHC 32.9 RDW 14.2 Plt Count 289 MPV 8.2 Sodium 139 Potassium 4.5 Chloride 104 Carbon Dioxide 22 Anion Gap 13 BUN 11 D Creatinine 0.5 L Random Glucose 100 Calcium 7.8 L HOSPITAL COURSE: Date of Admission:01/27/17 Date of Discharge: 02/05/17 Discharge Summary Reason For Visit: ACUTE CHOLECYSTITIS Current Active Problems Abdominal pain (Acute) Acute cholecystitis (Acute) Afib (Acute) GERD (gastroesophageal reflux disease) (Acute) Gangrenous cholecystitis (Acute) Hypertension (Acute) Condition: Stable - Instructions Diet, Activity, Other Instructions: Please return to the ED for any new, persistent, or worsening symptoms. Follow up with your PCP in 1 weeks. Resume home medications as listed on home medication list Continue new medication Eliquis 5mg BID Complete antibiotics for next 2 days Follow up with surgery in 2 weeks (referral enclosed) Follow up with Cardiology 2 weeks for continued management of A fib and eliquis Referrals: Orlin Acosta MD [Staff Physician] - Disposition: HALFWAY FACILITY - Home Medications Comprehensive Discharge Medication List: Ambulatory Orders Alendronate Na [Fosamax (Weekly)] 70 mg PO Q7D 05/18/13 Atenolol [Tenormin -] 100 mg PO DAILY 05/18/13 Furosemide [Lasix -] 40 mg PO DAILY 05/18/13 Pantoprazole Sodium 40 mg PO HS 05/18/13 Topiramate 25 mg PO BID 05/18/13 Piperonyl Butoxide/Pyrethrins [Ra Lice Pyrinyl Shampoo] 237 ml TP AM #1 shampoo 08/13/16 Valacyclovir HCl [Valtrex] 500 mg PO DAILY 01/27/17 Loteprednol Etabonate [Alrex] 5 ml OS DAILY 01/31/17 Amox-Tr/K Cl [Augmentin 875-125mg Tablet -] 1 tab PO BID@0800,1730 #4 tablet Apixaban [Eliquis -] 5 mg PO BID #60 tablet 02/05/17 - Discharge Referral Referred to [facility] Yes Physician Referral: Denny Alarcon DO (Neph)
[2017-02-05 15:18] VITALS: BP 120/69; PULSE 82; TEMP 97.6
== END 2017-02-05 16:32 | DRG 411 ==
LOC: FER 13:33 → FM/S 18:02 → J4S 01-29 16:53 → JSAMEDAYSX 01-30 13:00 → JICU 01-30 17:28 → J4W 01-31 20:19 → J4S 02-02 20:17
PROVIDERS: ADMIT Internal Medicine; ATTEND Nurse Practitioner Acute Care
PROC: 0F9900Z Drainage of Common Bile Duct with Drainage Device, Open Approach (ICD-10-PCS; 2017-01-30)
PROC: 0FT40ZZ Resection of Gallbladder, Open Approach (ICD-10-PCS; principal; 2017-01-30 13:00)
DX: K81.0 Acute cholecystitis (principal); I50.33 Acute on chronic diastolic (congestive) heart failure; I50.30 Unspecified diastolic (congestive) heart failure; R18.8 Other ascites; B02.30 Zoster ocular disease, unspecified; K21.9 Gastro-esophageal reflux disease without esophagitis; K44.9 Diaphragmatic hernia without obstruction or gangrene; Z85.3 Personal history of malignant neoplasm of breast; G43.909 Migraine, unspecified, not intractable, without status migrainosus; E83.39 Other disorders of phosphorus metabolism; E83.42 Hypomagnesemia; D72.829 Elevated white blood cell count, unspecified; I11.0 Hypertensive heart disease with heart failure; I48.91 Unspecified atrial fibrillation; Z96.653 Presence of artificial knee joint, bilateral; G47.33 Obstructive sleep apnea (adult) (pediatric); E66.9 Obesity, unspecified; Z68.32 Body mass index [BMI] 32.0-32.9, adult; Z71.3 Dietary counseling and surveillance
CPT/HCPCS: 36415; 71010-TC; 74176-TC; 76705-TC; 78226-TC; 80048; 80053; 80076; 81003; 81015; 82550; 83605; 83690; 83735; 83880; 84100; 84439; 84443; 84484; 85025; 85027; 85610; 85730; 86850; 86900; 86901; 87040; 88304-TC; 93005; 93306-TC; 93970-TC; 94760; 97116-GP; 97161-GP; 99283-25; A9537; J1644

== ENCOUNTER → 2019-01-22 | Day surgery (SDC) | payer OTHER, BC ==
--- NOTE | 2019-01-22 15:34 | GENETICS ---
- Reason for Referral LATISHA JARAMILLO is a 88 year old postmenapausal female of [place] descent who was referred for a genetic assessment because of:Personal H/O and F/H of breast cancer. She underwent Right modified radical mastectomy at age 52 for invasive breast cancer. recently she was found to have a suspicious density on US left breast birad 5 which was biopsied today under US and expected to be positive but results are pending.Her sister had breast cancer at age 58 70's . She has one niece with melanoma at approximately age 50. Father passed from lung cancer at age 57. Both paternal and maternal family history is limited due to unknown and no contact. ___ Family history of Cancer ___ Personal history of Cancer __x_ Personal and Family history of Cancer ___ Other: - Past Medical History Allergies/Adverse Reactions: Allergies Allergy/AdvReac Type Severity Reaction Status Date / Time codeine Allergy Rash Verified 01/27/17 14:44 COMMUNICATIONS SYSTEMS ENGINEER: Yes: Migraine Cardiovascular: Yes: AFIB, CHF, HTN Gastrointestinal: Yes: GERD, Hiatal Hernia Heme/Onc: Yes: Cancer (Breast CA) - Past Surgical History Past Surgical History: Yes: Appendectomy (1959), Cataract Removal, Cholecystectomy (2016), Joint Replacement (bilateral TKR), Mastectomy (right MRM 1981 at age 52) Additional Surgical History: corneal transplant - Smoking History Smoking history: Smoker current status UNK Have you smoked in the past 12 months: No Aproximately how many cigarettes per day: 60 - Alcohol/Substance Use Hx Alcohol Use: No Family Disease History - Family Disease History Family Disease History: CA: Father (lung ca ), Sister (breast ca 58) Other Family History: neice melanoma 50 Genetic Assess-Family History A detailed 3 (three) generation pedigree was obtained. Genetic Assessment-PE Other Findings-Behavioral / Physical Exam: patient has appropriate behavior for genetic testing. She had a left US core bx today results pending Genetic Assessment-Plan Discussion/Education: We discussed hereditary cancer predisposition testing in detail. In general, it is thought that only about 5-10% of all cancers is strongly hereditary while the remaining cancers are likely due to a combination of genetic and environmental factors (sporadic). With hereditary cancer, individuals are born with a mutation in a gene known to increase risk for developing cancer. Genetic testing is performed by analyzing the DNA code within genes of interest. We discussed the limitations and benefits of testing and possible results. Potential benefits of genetic testing include aiding in clinical management decisions, such as prophylactic surgeries, increased cancer screening, and/or hormonal therapies and identifying at risk family members. We also discussed concern about potential insurance discrimination, emotional ramifications, the possibility of invasive surgeries being recommended based on results, and the possibility of being at risk for cancer for which there is no proven screening protocol. We discussed the possible results (positive, negative, or inconclusive ). Inconclusive results may include but are not limited to variants of uncertain significance. A positive result would indicate that this individual is predisposed to certain types of cancer depending on the genetic mutation. We discussed that lifetime risks for BRCA carriers are up to 87% for breast cancer and 44% for ovarian cancer, amongst other cancer risks (pancreatic, prostate, male breast cancer, melanoma). Cancer risks and associated cancer types vary by gene mutation. Genes included in the panel are generally clinically actionable and a positive result could result in changes in management based on known cancer risk levels. Without genetic testing or if the testing does not reveal a clinically actionable mutation, this patient's risks may be estimated on personal and family history, and with the assistance of established risk calculators. Based on this patient's personal and family history, there is a possible inherited predisposition to cancer, therefore Myriad breast stat and panel ) was offered. The patient decided to proceed with [place] panel with breast stat The individual declined/accepted professional genetic counseling. All questions were answered and the patient seemed to have a good understanding of our discussion today. Plan: The patient will be called/ have a follow up office visit for results in 2-4 weeks. Left US core bx results pending. Surgical decision for mastectomy pending results of biopsy and genetic testing. [facility]
--- NOTE | 2019-01-25 11:30 | OP ---
DATE OF OPERATION: 01/22/2019 PREOPERATIVE DIAGNOSIS: Left breast mass, 3 o'clock, retroareolar. POSTOPERATIVE DIAGNOSES: Left breast mass, 3 o'clock, retroareolar. PROCEDURE: Left ultrasound-guided core biopsy and clip placement. ANESTHESIA: Local. ATTENDING SURGEON: Maisha Mi MD ESTIMATED BLOOD LOSS: Minimal. COMPLICATIONS: None. DESCRIPTION OF PROCEDURE: Patient was made aware of the risks and benefits of the procedure and consented. She was placed in the supine position. Under sterile conditions with 1% lidocaine for local anesthesia, a small rosette was made in the skin. Using a 10-gauge suction biopsy device via lateral approach, under ultrasound guidance, multiple cores were obtained and submitted to Pathology. Likewise, under ultrasound guidance, a U-shaped clip was placed into the biopsy region. Well tolerated by the patient. Steri-Strips and sterile bandage were applied. We will contact the patient with results. MAISHA MI M.D. [id number]
--- NOTE | 2019-01-25 15:57 | PATH ---
Surgical Pathology Report Patient Name: LATISHA JARAMILLO [facility]. Rec. #: [id number] /Age/Gender: 1930 (Age: 89) / F Account: [id number] Location: Taken: 01/22/2019 Received: 01/22/2019 Reported: 01/25/2019 Physicians: Jamir Angel M.D. Specimen(s) Received LEFT BREAST 3N RA CORE BIOPSY Clinical History Nonpalpable lesion Ultrasound findings: Highly suspicious/malignant Final Diagnosis BREAST, LEFT, 3N RA, CORE BIOPSY: INVASIVE DUCTAL CARCINOMA, MODERATELY DIFFERENTIATED, WITH FEW ASSOCIATED CALCIFICATIONS, MEASURING 1.1 CM IN GREATEST DIMENSION IN THIS MATERIAL. FOCAL DUCTAL CARCINOMA IN SITU (DCIS), SOLID AND CRIBRIFORM TYPE, INTERMEDIATE NUCLEAR GRADE. Results of ER, WI, Her2 & Ki67 studies will be reported separately in an addendum. Electronically Signed Neetu Horner M.D. Addendum Reported: 01/26/2019 Addendum Diagnosis Results of ER and WI studies performed at [facility] are as follows: ER (clone [id number] mouse monoclonal antibody by [employer]): > 95 % nuclear staining with strong intensity (Positive). WI (clone16 mouse monoclonal antibody by Leica): > 95 % nuclear staining with strong intensity (Positive). Results of Her2 (IHC) & Ki-67 studies performed at [place], [place] ([id number]) are as follows: Her2 IHC (EP3 from [employer], formerly known as [id number], using Marks Polymer Refine detection kit): 1+ (Negative). Ki-67: ~20% (Intermediate proliferative index). Positive and negative controls (internal if applicable) show appropriate results. Formalin fixation and cold ischemic times are within current ASCO/CAP recommendations for ER, WI and Her2 testing. Neetu Horner M.D. Gross Description Received in formalin labeled "left breast biopsy 3N RA" is a 1.8 x 1.7 x 0.3 cm aggregate of multiple chisholm-yellow, irregular to cylindrical portions of fibroadipose tissue admixed with necrotic material. The formalin is filtered and the specimen is entirely submitted in one cassette. Time to formalin fixation: < 1 minute Total formalin fixation time: Approximately 52 hours. DL/01/23/2019 saudi/01/23/2019
== END | disposition home or self-care (01) ==
LOC: FRADUS-SUR 13:20 → JGP 13:20
PROVIDERS: ATTEND Surgery Surgical Oncology
PROC: 0HBU3ZX Excision of Left Breast, Percutaneous Approach, Diagnostic (ICD-10-PCS; principal; 2019-01-22)
DX: C50.812 Malignant neoplasm of overlapping sites of left female breast (principal); D05.12 Intraductal carcinoma in situ of left breast; N63.20 Unspecified lump in the left breast, unspecified quadrant; Z85.3 Personal history of malignant neoplasm of breast; Z80.0 Family history of malignant neoplasm of digestive organs; N64.89 Other specified disorders of breast
CPT/HCPCS: 19083; 36415; 87899; 88305-TC; 88342-TC; A4648; G0463

== ENCOUNTER 2019-02-16 12:01 | Day surgery (SDC) | payer OTHER, BC ==
--- NOTE | 2019-02-08 13:18 | HP ---
Admitting History and Physical - Primary Care Physician PCP: Steven Dodd - Admission Chief Complaint: Left breast cancer History of Present Illness: 88 yeqar old female S/P right modified radical mastectomy 1981 ,no chemotherapy or RT or hormonal therapy. She was found to have a spiculated mass left breast retroareolar region 1.5 cm on mammogram 01/2019. Left breast US showed 1.3x1.2x1.1cm irregular mass. US core biopsy 01/22/2019 showed invasive ductal carcinoma ER+/AR+ HER2-. 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: Yes: Migraine Cardiovascular: Yes: AFIB, CHF, HTN Gastrointestinal: Yes: GERD, Hiatal Hernia Heme/Onc: Yes: Cancer (Right modified radical mastectomy 1981 no chemo or RT) - Past Surgical History Past Surgical History: Yes: Appendectomy (1959), Cataract Removal, Cholecystectomy (2016), Joint Replacement (bilateral TKR), Mastectomy (right MRM 1981 at age 52) - Smoking History Smoking history: Smoker current status UNK Have you smoked in the past 12 months: No Aproximately how many cigarettes per day: 60 - Alcohol/Substance Use Hx Alcohol Use: No Home Medications - Allergies Allergies/Adverse Reactions: Allergies Allergy/AdvReac Type Severity Reaction Status Date / Time codeine Allergy Rash Verified 01/27/17 14:44 - Home Medications Home Medications: Ambulatory Orders Alendronate Na [Fosamax (Weekly)] 70 mg PO Q7D 05/18/13 Atenolol [Tenormin -] 100 mg PO DAILY 05/18/13 Furosemide [Lasix -] 40 mg PO DAILY 05/18/13 Pantoprazole Sodium 40 mg PO HS 05/18/13 Topiramate 25 mg PO BID 05/18/13 Piperonyl Butoxide/Pyrethrins [Ra Lice Pyrinyl Shampoo] 237 ml TP AM #1 shampoo 08/13/16 Valacyclovir HCl [Valtrex] 500 mg PO DAILY 01/27/17 Loteprednol Etabonate [Alrex] 5 ml OS DAILY 01/31/17 Amox-Tr/K Cl [Augmentin 875-125mg Tablet -] 1 tab PO BID@0800,1730 #4 tablet Apixaban [Eliquis -] 5 mg PO BID #60 tablet 02/05/17 Family Disease History - Family Disease History Family Disease History: CA: Father (lung ca ), Sister (breast ca 58) Physical Examination Constitutional: Yes: Well Nourished Breast(s): Yes: Other (obvious right mastectomy without recurrence incision intact D cup on left with some retraction of nipple, slight density felt under left periareolar region at 3:00, no adenopathy) Problem List - Problems (1) Breast cancer, left breast Code(s): C50.912 - MALIGNANT NEOPLASM OF UNSPECIFIED SITE OF LEFT FEMALE BREAST Qualifiers: Breast location: areola Estrogen receptor status: positive Patient sex: female Qualified Code(s): C50.012 - Malignant neoplasm of nipple and areola, left female breast; Z17.0 - Estrogen receptor positive status [ER+] Assessment/Plan Left central wide excision sentenel node biopsy, possible axillary node dissection, lymphoscintogram, intraopRT
[2019-02-16] MEDS ORDERED: KETOROLAC TROMETHAMINE 30 MG/1 ML VIAL IVPUSH PRN (13:01)
[2019-02-16] MEDS ORDERED: ONDANSETRON 4 MG/2 ML VIAL IVPUSH PRN ×2 (13:01→13:12)
[2019-02-16] MEDS ORDERED: oxyCODONE HCL 5 MG TABLET PO PRN ×2 (13:12)
[2019-02-16 13:14] VITALS: BMI 32.6
[2019-02-16] MEDS ORDERED: DEXTROSE 5%-0.45% SALINE 1,000 ML IV SCH (13:15)
[2019-02-16] MEDS ORDERED: LACTATED RINGERS SOLUTION 1,000 ML IV SCH (13:15)
[2019-02-16] MEDS ORDERED: MIDAZOLAM HCL 2 MG/2 ML SINGLE DOSE VIAL ONE (13:55)
[2019-02-16] MEDS ORDERED: LIDOCAINE HCL/PF 2% SDV 5ML VIAL ONE (13:55)
[2019-02-16] MEDS ORDERED: ONDANSETRON 4 MG/2 ML VIAL ONE (13:55)
[2019-02-16] MEDS ORDERED: KETOROLAC TROMETHAMINE 30 MG/1 ML VIAL ONE (13:55)
[2019-02-16] MEDS ORDERED: ceFAZolin SODIUM 1 GM VIAL ONE ×2 (13:58→15:40)
[2019-02-16] MEDS ORDERED: PROPOFOL 20 ML ONE (13:59)
[2019-02-16] MEDS ORDERED: NEOSTIGMINE METHYLSULFATE 0.5 MG/ML - 10 ML MDV ONE (14:38)
[2019-02-16] MEDS ORDERED: BUPIVACAINE HCL/PF 2.5 MG/ML - 30 ML VIAL IJ ONE (15:05)
[2019-02-16] MEDS ORDERED: LIDOCAINE HCL 1% PRESERVATIVE FREE - 30ML VIAL ONE (15:05)
[2019-02-16] MEDS ORDERED: GUM MASTIC/STORAX/MSAL/ALCOHOL 1 DRP DROPSBTL MC ONE (15:05)
[2019-02-16] MEDS ORDERED: ISOSULFAN BLUE 10 MG/ML VIAL SQ ONE (15:33)
[2019-02-16] MEDS ORDERED: ACETAMINOPHEN 325 MG TABLET (FP) PO ONE (18:55)
[2019-02-16] MEDS ORDERED: ACETAMINOPHEN 325 MG TABLET (FP) PO PRN (19:00)
[2019-02-16 20:30] VITALS: TEMP 97.7
[2019-02-16 20:32] VITALS: BP 136/65; PULSE 92
--- NOTE | 2019-02-16 21:58 | OP ---
DATE OF OPERATION: 02/16/2019 LOCATION: [facility] PREOPERATIVE DIAGNOSIS: Left breast cancer. POSTOPERATIVE DIAGNOSIS: Left breast cancer. PROCEDURE: Post-lumpectomy intraoperative radiation therapy for left breast cancer. ATTENDING SURGEON: Steven Dodd MD MACHINE LEAD BURNER/RADIATION ONCOLOGIST: Jose Mcclure MD ANESTHESIA: General. COMPLICATIONS: None. INDICATIONS: The patient is an 89-year-old woman with a clinical stage I invasive ductal carcinoma of the left breast, who has elected breast conservation therapy with intraoperative radiation therapy following central wide excision. DESCRIPTION OF PROCEDURE: Dr. Dodd performed left central wide excision and sentinel lymph node biopsy which he has dictated. After excision of additional margins, the surgical cavity was prepared by suturing the breast tissue to close the cavity. The lumpectomy cavity was sized with a 5.0 diameter spherical applicator that was placed into the left breast. The surrounding breast tissues were cinched around the applicator with a Vicryl pursestring suture. A clinical and ultrasound simulation was performed to ensure that the applicator was located within the operative bed with close apposition of the surrounding breast tissue to the surface of the applicator. Ultrasound measurements confirmed a skin-to- applicator distance of at least 1.5 cm. An adequate distance was ensured between the applicator and chest wall. Shielding material was placed over the breast to reduce scatter radiation. The patient received a total dose of 20 Gy prescribed to 0 mm from the applicator surface using 50 kV x-rays with the INTRABEAM system. Prior to treatment, the system was double checked with appropriate physics quality improvement consultant measures. The total time required for the treatment was 47 minutes 27 seconds at a dose rate of 0.414 Gy per minute. When the treatment was completed, survey of the patient and room confirmed that the INTRABEAM source was off. There were no complications or unplanned interruptions. Dr. Dodd removed the radiation applicator from the patient and completed the surgery. The patient will be discharged to the recovery room following surgery. JOSE MCCLURE M.D. [id number] cc: Steven Dodd MD [facility]
[2019-02-17] MEDS ORDERED: HEPARIN NA (PORCINE) 5,000 UNITS/ML 1ML VIAL SQ SCH (08:00)
--- NOTE | 2019-02-17 09:40 | OP ---
DATE OF OPERATION: 02/16/2019 PREOPERATIVE DIAGNOSIS: Left breast overlapping breast cancer. ANESTHESIA: General laryngeal mask airway anesthesia. POSTOPERATIVE DIAGNOSIS: Left breast overlapping breast cancer. PROCEDURE: Left breast central wide excision with left axillary sentinel lymph node biopsy and intraoperative radiation with 10 x 5 cm tissue transfer closure. PRIMARY SURGEON: Steven Dodd MD AFTERSCHOOL BABYSITTER: MARCELA Carrillo COMPLICATIONS: None. Briefly, the patient is an 89-year-old, G3, P2, postmenopausal white female of [place] descent. She has a family history with her sister who had breast cancer at age 58 and her father had lung cancer at age 67. The patient developed a right breast cancer in 1981 and underwent a right breast modified radical mastectomy at [facility] and received no adjuvant therapy. She was doing well and had a recent mammography on January 11, 2019, showing a new density in the left breast 3 o'clock retroareolar region with a palpable mass measuring 1.3 x 1.2 x 1.1 cm on ultrasound. Ultrasound-guided core biopsy showed a moderately differentiated, invasive duct cancer measuring 1.1 cm which was ER/GA positive, HER2/carlos negative with a Ki-67 of 20%. The patient was advised on undergoing a central wide excision since the mass was causing nipple retraction and was directly underneath the retroareolar region of the left nipple. She did not require an MRI given her replaced breast. The patient understood the need for the procedure and sentinel lymph node biopsy and was brought in for the procedure on February 16, 2019. She underwent a lymphoscintigraphy at [facility] prior to procedure and was brought to the [facility]. In the holding area, site verification was made, and informed consent was obtained. She was brought into the operating room and laid on the OR table in a supine position. Venodynes were placed on the lower extremities prior to induction. She received a gram of Ancef prior to incision. She underwent general laryngeal mask airway anesthesia. The left breast was sterilely prepped and draped in usual fashion and 3 mL of Lymphazurin blue were injected intradermally and around the periareolar region of the left breast nipple-areolar complex and massage was instituted. Once she was properly anesthetized, a timeout was performed. Incision was made just below the hair-bearing area of the left axilla and dissection was undertaken and blue lymphatic was easily seen coursing to a blue, hot lymph node with a 10-second gamma count of 2241. No other blue or hot nodes were found, and background count in the left axilla was 38 after removal of this one node. The node was sent in formalin to Pathology for permanent section. Hemostasis was achieved, and the axillary wound was closed using interrupted 2-0 plain sutures and interrupted 3-0 deep dermal Vicryl suture and a running 4-0 subpedicular Biosyn suture. At this point, the central wide excision was undertaken with an elliptical incision made around the entire nipple-areolar complex with the nipple-areolar complex completely removed in a wedge-like fashion towards the central left breast. The cancer was easily palpable, was in the middle of the specimen, and the specimen was completely removed intact. The specimen was oriented with a long lateral, short superior suture and sent for specimen radiograph which showed removal of the clip in question. Hemostasis was achieved. Separate margins were then taken on the superior, inferior, medial, lateral, deep aspect with a suture marking the biopsy cavity side, and each of these margins was sent separately to Pathology in formalin. Hemostasis was achieved. At this point, a 5-cm INTRABEAM device was sterilely placed in the wound, and the tissue was pursestringed around the device. Ultrasound was used to confirm distance of the device in the skin greater than a centimeter in all quadrants. Intraoperative radiation was then accomplished for about 50 minutes. After radiation, the device was removed, the wound was copiously irrigated, and a 10 x 5 cm tissue transfer closure was accomplished by bringing the breast tissue from the top and bottom of the breast together and reapproximated using 2-0 plain suture. The skin was then closed using interrupted 3-0 deep dermal Vicryl suture and a running 4-0 subpedicular Biosyn suture. Mastisol and Steri-Strips were applied over the wounds with a compressive dressing placed over this. She will be placed in a surgical bra postoperatively. The patient will be recovered in the postanesthesia care unit and can be discharged home the same day once discharge criteria are met. She will follow up in the office in 1 week for a formal wound and pathology check. All sponge and needle counts were correct at the end of the case, and estimated blood loss was only about 20 mL. She was hemodynamically stable throughout. STEVEN DODD M.D. /[id number]
== END 2019-02-16 20:20 | disposition home or self-care (01) ==
LOC: FASU 12:01
PROVIDERS: ATTEND Surgery Surgical Oncology
PROC: 0HBU0ZZ Excision of Left Breast, Open Approach (ICD-10-PCS; principal; 2019-02-16 15:49)
PROC: DMY07ZZ Contact Radiation of Left Breast (ICD-10-PCS; 2019-02-16 15:49)
PROC: 0JX60ZC Transfer Chest Subcutaneous Tissue and Fascia with Skin, Subcutaneous Tissue and Fascia, Open Approach (ICD-10-PCS; 2019-02-16 15:49)
DX: C50.812 Malignant neoplasm of overlapping sites of left female breast (principal); Z17.0 Estrogen receptor positive status [ER+]; I11.0 Hypertensive heart disease with heart failure; I48.91 Unspecified atrial fibrillation; I50.9 Heart failure, unspecified; K21.9 Gastro-esophageal reflux disease without esophagitis; K44.9 Diaphragmatic hernia without obstruction or gangrene; Z90.11 Acquired absence of right breast and nipple
CPT/HCPCS: 76641-TC-50; 77290; 77300; 77316; 77332; 77370-TC; 77424; 78195-TC; 88307-TC; 88342-TC; 94760; A9541; C9726